=== PATIENT | male | born 1975 ===

== ENCOUNTER 2023-04-22 09:16 | Outpatient (AMB) | payer OTHER, SELFPAY ==
[2023-04-22 09:16] VITALS: BP 134/82; PULSE 89; O2SAT 99; BMI 19.6
--- NOTE | 2023-04-22 09:16 | MHC.PC.OV ---
Vital Signs 04/22/23 09:16 Height 5 ft 3 in Weight 110 lb 7.225 oz BMI 19.6 BP 134/82 Blood Pressure Location Lt brachial Position Sitting Pulse 89 Pulse Source Pulse Oximeter Pulse Oximetry (%) 99 Oxygen Delivery Method Room Air Intake Visit Reasons: Physical exam [employer]ist Required: No Allergies No Known Allergies Allergy (Verified 04/22/23 09:33) Medication List - Last Reconciled 04/22/23 by DIANNA Kahn No Known Home Meds Tobacco use date assessed: 04/22/23 Dental Screening Dental Screen Date: 04/22/23 Did you have a dental visit in the last 12 months?: No Did you have a dental problem in the last 6 months where you did not have access to dental care?: No Was dental information given to patient?: Patient has dentist HPI Physical exam HPI Details Patient is a 48-year-old male who presents today for physical exam. Patient of Dr. Rocha. Medical history significant for cerebral palsy-patient ambulates with a walker or wheelchair. Today we discussed patient's need for colon cancer screening, declined colonoscopy interested in a Cologuard. Patient is due for blood work. Will be having dental exam this month. Family will call for eye exam. Patient is accompanied by his sister who helps with Georgian interpretation. [facility] Medical History Family history of diabetes mellitus Surgical History Recent surgical procedure on lower extremity Family History Father Diabetes Hypertension Mother Hypertension Diabetes Social History Housing: Apartment Alcohol intake: never Patient Tobacco Use Status: Never used Tobacco e-Cigarette/Vaping Use: Never Used Second Hand Smoke Exposure: No service: No Current occupational status: disabled Cognitive needs: Yes Hearing needs: No Vision needs: No Questionnaire PHQ-9 Over the last 2 weeks, how often have you been bothered by any of the following problems? 1. Little interest or pleasure in doing things: not at all 2. Feeling down, depressed, or hopeless: not at all 3. Trouble falling or staying asleep, or sleeping too much: not at all 4. Feeling tired or having little energy: not at all 5. Poor appetite or overeating: not at all 6. Feeling bad about yourself - or that you are a failure or have let yourself or your family down: not at all 7. Trouble concentrating on things, such as reading the newspaper or watching television: not at all 8. Moving or speaking so slowly that other people could have noticed. Or the opposite - being so fidgety or restless that you have been moving around a lot more than usual: not at all 9. Thoughts that you would be better off or of hurting yourself in some way: not at all Total score: 0 Depression Screening Interpretation: Negative Depression Screening Done: Yes 92247 - PHQ-9 Billing: Yes Source: Developed by Drs. Loc Mcmahon, More Rayo, Sree Andrews and colleagues, with an educational priya from [employer]. Thrive Questionnaire Date Thrive assessed: 04/22/23 I am a: Patient What is your living situation today?: I have a steady place to live Within the past 12 months, did the food you bought not last and you didn't have the money to get more?: Never true Within the past 12 months, did you worry whether your food would run out before you got money to buy more?: Never true Currently or been in a relationship where the following occur: no concerns reported AUDIT C Alcohol Use Questionnaire (AUDIT-C) 1. How often do you have a drink containing alcohol?: Never Total Score: 0 Score Reviewed/Action Taken: No DIANA-7 AMB Questionnaire DIANA-7 Date DIANA - 7 assessed: 04/22/23 Feeling nervous, anxious, or on edge: 0 = Not at all Not being able to stop or control worryin = Not at all Worrying too much about different things: 0 = Not at all Trouble relaxin = Not at all Being so restless that it is hard to sit still: 0 = Not at all Becoming easily annoyed or irritable: 0 = Not at all Feeling afraid as if something awful might happen: 0 = Not at all Total DIANA-7 score (0-4 normal; 5-9 mild; 10-14 moderate; 15-21 severe): 0 Source: Developed by Drs. Loc Mcmahon, More Rayo, Sree Andrews and colleagues, with an educational priya from [employer]. DIANA-7 Assessment Billing DIANA-7 Assessment Tool: DIANA-7 Assessment 28702 Review of Systems Const Denies body aches, Denies chills, Denies fever(s) and Denies headache(s) Eyes Denies change in vision ENT Denies dizziness, Denies otalgia, Denies headache(s), Denies nasal discharge, Denies sinus pain and Denies sore throat Card Denies chest pain, Denies edema, Denies lightheadedness and Denies dyspnea Resp Denies cough, Denies dyspnea and Denies wheezing GI Denies abdominal pain, Denies constipation, Denies diarrhea, Denies nausea and Denies vomiting Denies dysuria Musc Denies myalgias Skin/Breast Denies rash Neuro Denies dizziness and Denies headache(s) Aller/Immun Denies wheezing Physical exam (Primary Care) Vital Signs: Last Vital Signs Pulse 89 04/22/23 09:16 BP 134/82 04/22/23 09:16 Pulse Ox 99 04/22/23 09:16 Oxygen Delivery Method Room Air 04/22/23 09:16 BMI result Body Mass Index 19.6 Tobacco/Smoking Status: Tobacco use Status Tobacco use date assessed 04/22/23 04/22/23 09:17 Patient Tobacco Use Status Never used Tobacco 04/22/23 09:17 e-Cigarette/Vaping Use Never Used 04/22/23 09:17 PHQ-9: PHQ-9 Score PHQ-9: Total score 0 04/22/23 09:27 Depression Screening Interpretation: Negative Thrive Assessment: Date of Thrive Assessment Date Thrive assessed 04/22/23 04/22/23 09:17 Currently or been in a relationship where the following occur: no concerns reported Const General: cooperative and no acute distress Orientation/consciousness: oriented to person and oriented to place HENMT Other: Left TM normal Right TM partially obstructed by cerumen, visualized TM Head: Yes normocephalic and Yes atraumatic Face and sinus: Yes sinuses nontender Mouth: oropharynx normal and moist mucous membranes Throat: Yes posterior oropharynx normal Eyes General: appearance normal, both eyes and all related structures Pupils: Equal, round and reactive pupils present EOM: EOMs intact bilaterally Neck Neck: Yes normal visual inspection, Yes full ROM and Yes no lymphadenopathy Thyroid: Thyroid normal Resp Effort & Inspection: normal respiratory effort and able to speak in complete sentences Auscultation: clear to auscultation bilaterally, no crackles, no rales, no rhonchi and no wheezes Cardio Rate: regular rate Rhythm: regular rhythm Heart sounds: S1 normal heart sound present, S2 normal heart sound present and no murmurs GI Palpation (GI): Soft to palpation, not firm, nontender, no guarding, not rigid and no hepatosplenomegaly Auscultation: normal bowel sounds General: No CVA tenderness Back/Spine/Pelvis Back: No CVA tenderness Skin General skin exam: no rashes or lesions noted Neuro General: oriented to person and oriented to place Cranial nerves: Yes Equal, round and reactive pupils present Extrem General: Yes full ROM and No edema Assessment and Plan Assessment & Plan (1) Screening for prostate cancer: Code(s): Z12.5 - Encounter for screening for malignant neoplasm of prostate (2) Cerebral palsy: Code(s): G80.9 - Cerebral palsy, unspecified Plan: Patient ambulates with a walker/wheelchair (3) Encounter for physical examination: Code(s): Z00.00 - Encounter for general adult medical examination without abnormal findings Plan: Repeat in 1 year (4) Family history of diabetes mellitus: Code(s): Z83.3 - Family history of diabetes mellitus (5) Screening for colon cancer: Code(s): Z12.11 - Encounter for screening for malignant neoplasm of colon Orders: Orders TSH reflex Free T4 Today Z00.00 - Encounter for general adult medical examination without abnormal findings Comprehensive [place]. Panel Fast Today Z83.3 - Family history of diabetes mellitus Prostate Specific Antigen Today Z12.5 - Encounter for screening for malignant neoplasm of prostate Lipid Panel Today Z00.00 - Encounter for general adult medical examination without abnormal findings Complete Blood Count Auto Diff Today Z00.00 - Encounter for general adult medical examination without abnormal findings Referrals Cologuard Test Z12.11 - Encounter for screening for malignant neoplasm of colon, Z12.12 - Encounter for screening for malignant neoplasm of rectum Coding Level of Care Code Est Pt Prev Care 40-64y(90411) Diagnoses Screening for prostate cancer Z12.5 Cerebral palsy G80.9 Encounter for physical examination Z00.00 Family history of diabetes mellitus Z83.3 Screening for colon cancer Z12.11 Additional Codes DIANA-7 Assessment Billing - DIANA-7 Assessment Tool: DIANA-7 Assessment [id number] ([id number])
== END 2023-04-22 09:43 | disposition home or self-care (01) ==
PROVIDERS: PCP Internal Medicine; Visit Provider Nurse Practitioner Family
DX: Z12.5 Encounter for screening for malignant neoplasm of prostate (principal); G80.9 Cerebral palsy, unspecified; Z00.00 Encounter for general adult medical examination without abnormal findings; Z83.3 Family history of diabetes mellitus; Z12.11 Encounter for screening for malignant neoplasm of colon
CPT/HCPCS: 99396

== ENCOUNTER 2024-04-24 09:23 | Outpatient (AMB) | payer OTHER, SELFPAY ==
--- NOTE | 2024-04-24 09:28 | MHC.PC.OV ---
Vital Signs 04/24/24 09:30 Height 5 ft 3 in Weight 109 lb BMI 19.3 BP 132/70 Blood Pressure Location Lt brachial Position Sitting Intake Visit Reasons: pe Intake Note: Patient here for a physical exam Director Paid Media Required: No Accompanied by: Self / Same As Patient Allergies No Known Allergies Allergy (Verified 04/24/24 09:34) Medication List - Last Reconciled 04/24/24 by Jessica Dill MD No Known Home Meds Tobacco use date assessed: 04/24/24 Dental Screening Dental Screen Date: 04/24/24 Did you have a dental visit in the last 12 months?: No Did you have a dental problem in the last 6 months where you did not have access to dental care?: No Was dental information given to patient?: Patient has dentist HPI HPI Comments History of Present Illness Details This is a 49-year-old male with cerebral palsy that comes accompanied by sister which is the assembler rubber footwear for his physical exam. She walks with a walker for gait stability. Denies any acute complaints. Cologuard done 2022 was negative. REPLACED BY [facility] Medical History Family history of diabetes mellitus Surgical History Recent surgical procedure on lower extremity Family History Father Diabetes Hypertension Mother Hypertension Diabetes Social History Housing: Apartment Alcohol intake: never Patient Tobacco Use Status: Never used Tobacco e-Cigarette/Vaping Use: Never Used Second Hand Smoke Exposure: No service: No Current occupational status: disabled Cognitive needs: Yes Hearing needs: No Vision needs: No Questionnaire PHQ-9 Over the last 2 weeks, how often have you been bothered by any of the following problems? 1. Little interest or pleasure in doing things: not at all 2. Feeling down, depressed, or hopeless: not at all 3. Trouble falling or staying asleep, or sleeping too much: not at all 4. Feeling tired or having little energy: not at all 5. Poor appetite or overeating: not at all 6. Feeling bad about yourself - or that you are a failure or have let yourself or your family down: not at all 7. Trouble concentrating on things, such as reading the newspaper or watching television: not at all 8. Moving or speaking so slowly that other people could have noticed. Or the opposite - being so fidgety or restless that you have been moving around a lot more than usual: not at all 9. Thoughts that you would be better off or of hurting yourself in some way: not at all Total score: 0 Depression Screening Interpretation: Negative Depression Screening Done: Yes 16637 - PHQ-9 Billing: Yes Source: Developed by Drs. Loc Mcmahon, More Rayo, Sree Andrews and colleagues, with an educational priya from [employer]. Thrive Questionnaire Date Thrive assessed: 04/22/23 I am a: Patient What is your living situation today?: I choose not to answer this question Within the past 12 months, did the food you bought not last and you didn't have the money to get more?: I choose not to answer this question Within the past 12 months, did you worry whether your food would run out before you got money to buy more?: I choose not to answer this question Do you have trouble paying for medicines?: I choose not to answer this question Do you have trouble getting transportation to medical appointments?: I choose not to answer this question Do you have trouble paying your heating and electricity bill?: I choose not to answer this question Do you have trouble taking care of your child, family member or friend?: I choose not to answer this question Do you have trouble with day-to-day activities such as bathing, preparing meals, shopping, managing finances, etc.?: I choose not to answer this question Are you currently unemployed and looking for a job?: I choose not to answer this question Are you interested in more education?: I choose not to answer this question Please select the resources that you would like help with: None Currently or been in a relationship where the following occur: I choose not to answer THRIVE Score: 0 AUDIT C Alcohol Use Questionnaire (AUDIT-C) 1. How often do you have a drink containing alcohol?: Never Total Score: 0 Score Reviewed/Action Taken: No DIANA-7 AMB Questionnaire DIANA-7 Date DIANA - 7 assessed: 04/22/23 Feeling nervous, anxious, or on edge: 0 = Not at all Not being able to stop or control worryin = Not at all Worrying too much about different things: 0 = Not at all Trouble relaxin = Not at all Being so restless that it is hard to sit still: 0 = Not at all Becoming easily annoyed or irritable: 0 = Not at all Feeling afraid as if something awful might happen: 0 = Not at all Total DIANA-7 score (0-4 normal; 5-9 mild; 10-14 moderate; 15-21 severe): 0 Source: Developed by Drs. Loc Mcmahon, More Rayo, Sree Andrews and colleagues, with an educational priya from [employer]. DIANA-7 Assessment Billing DIANA-7 Assessment Tool: DIANA-7 Assessment 66114 Review of Systems Const All systems reviewed & are unremarkable except as noted in HPI and below Card Denies chest pain at rest, Denies chest pain with activity, Denies edema, Denies irregular heart rhythm, Denies claudication, Denies dyspnea, Denies dyspnea on exertion, Denies orthopnea, Denies paroxysmal nocturnal dyspnea and Denies slow heart rate Resp Denies cough, Denies dyspnea and Denies dyspnea on exertion GI Denies abdominal pain, Denies change in bowel habits, Denies excessive flatus, Denies nausea and Denies vomiting Denies urinary hesitancy, Denies urinary incontinence and Denies urinary urgency Physical exam (Primary Care) Vital Signs: Last Vital Signs BP 132/70 04/24/24 09:30 BMI result Body Mass Index 19.3 BMI Assessment/Plan discussion: Low BMI Low, Plan discussed: lifestyle, increase calorie intake and dietary Tobacco/Smoking Status: Tobacco use Status Tobacco use date assessed 04/24/24 04/24/24 09:34 Patient Tobacco Use Status Never used Tobacco 04/24/24 09:30 e-Cigarette/Vaping Use Never Used 04/24/24 09:30 PHQ-9: PHQ-9 Score PHQ-9: Total score 0 04/24/24 09:38 Depression Screening Interpretation: Negative Thrive Assessment: Date of Thrive Assessment Date Thrive assessed 04/22/23 04/24/24 09:30 Currently or been in a relationship where the following occur: I choose not to answer Const General: cooperative Nutritional Appearance: thin Limitations: ambulation with walker HENMT Head: Yes normal to inspection, Yes normocephalic and Yes atraumatic Ears: external ears normal Eyes General: appearance normal, both eyes and all related structures Eyelids: Yes eyelids normal Conjunctivae: conjunctivae normal Neck Neck: Yes normal visual inspection and Yes supple Resp Effort & Inspection: normal respiratory effort Auscultation: clear to auscultation bilaterally Cardio Jugular venous distension: no JVD Rate: regular rate Rhythm: regular rhythm Heart sounds: S1 normal heart sound present and S2 normal heart sound present GI Inspection: Yes normal to inspection Palpation (GI): Soft to palpation and nontender Auscultation: normal bowel sounds Skin General skin exam: no rashes or lesions noted Neuro Motor exam (neuro): Abnormal motor strength present (0/5 in lower limbs bilateral, 5/5 upper limbs bilateral) Extrem General: Yes full ROM Psych Appearance: grossly normal Coding Level of Care Code Est Pt Prev Care 40-64y(06437) Diagnoses Encounter for physical examination 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 (2) Cerebral palsy: Code(s): G80.9 - Cerebral palsy, unspecified Category: Medical Qualifiers: Cerebral palsy type: spastic diplegic Qualified Code(s): G80.1 - Spastic diplegic cerebral palsy Plan: Continue the use of a walker for mobility. Orders: Orders Lipid Panel Today Z00.00 - Encounter for general adult medical examination without abnormal findings Thyroid Stimulating Hormone Today R63.6 - Underweight Complete Blood Count Auto Diff Today G80.9 - Cerebral palsy, unspecified Comprehensive [place]. Panel Fast Today Z00.00 - Encounter for general adult medical examination without abnormal findings
[2024-04-24 09:30] VITALS: BP 132/70; BMI 19.3
== END 2024-04-24 09:48 | disposition home or self-care (01) ==
PROVIDERS: PCP Internal Medicine; Visit Provider Internal Medicine
DX: Z00.00 Encounter for general adult medical examination without abnormal findings (principal); G80.1 Spastic diplegic cerebral palsy

== ENCOUNTER → 2024-04-24 09:23 | Outpatient (BNVA) | payer OTHER, SELFPAY | PROVIDERS: PCP Internal Medicine; Visit Provider Internal Medicine | DX: Z00.00 Encounter for general adult medical examination without abnormal findings (principal); G80.1 Spastic diplegic cerebral palsy | CPT/HCPCS: 96127; 99396 ==

== ENCOUNTER 2024-08-26 07:59 | Inpatient (IN) | payer OTHER, SELFPAY ==
--- NOTE | ~2024-08-26 | XR_ITS ---
CLINICAL HISTORY: fall Exam: AP, lateral, and oblique views of the left knee. Comparison: None. Findings: Bony alignment is anatomic. No acute fracture. Joint spaces are well preserved. No joint effusion. Impression: No fracture. This document has been electronically signed by: Catrachito Boudreaux MD on 08/26/2024 08:49:26
--- NOTE | ~2024-08-26 | XR_ITS ---
CLINICAL HISTORY: fall and pain 2 views left hip. Single AP pelvis. Comparison: None Findings: Comminuted intratrochanteric/subtrochanteric fracture on the left. Mild varus angulation deformity. Normal congruency of the hip joint. Limited assessment of the right femoral neck due to positioning clinical correlation SI joints pubic rami and symphysis pubis intact. Mild joint space narrowing bilaterally. Bone mineralization and soft tissues within normal limits. No radiopaque foreign body. Impression: 1. Comminuted intratrochanteric/subtrochanteric fracture on the left with mild varus angulation deformity. Patient was rotated limited assessment of the right femoral neck This document has been electronically signed by: Jhon Mejia MD on 08/26/2024 10:37:55
--- NOTE | ~2024-08-26 | FL_ITS ---
EXAMINATION: FL GUIDANCE ONLY HISTORY: intraop exam COMPARISON: Correlation is made with plain films of the left hip dated 08/26/2024. TECHNIQUE: Fluoroscopy time: 1.0 minutes. Cumulative Dose: 20.0 mGy. DAP: 0.347 mGym2 Images: 4. FINDINGS: Images demonstrate internal fixation of the previously noted intertrochanteric fracture of the femur with a compression screw and intramedullary braulio. FL/FL guidance in OR IMPRESSION: Fluoroscopy during procedure. Please see procedure report for additional information. Electronically signed by: Loc Whaley MD 08/28/2024 07:15 AM EDT
--- NOTE | ~2024-08-26 | XR_ITS ---
CLINICAL HISTORY: fall and pain 1 view chest x-ray. Comparison: None Findings: Normal lung volumes. Lungs are clear. No pneumothorax or pleural effusion. Heart size normal. No passive venous congestion. No midline shift or tracheal deviation. No acute fracture. Impression: 1. No acute cardiopulmonary disease. This document has been electronically signed by: Jhon Mejia MD on 08/26/2024 10:39:07
[2024-08-26 08:08] VITALS: BP 134/68; PULSE 80; RESP 16; TEMP 36.6; O2SAT 98; BMI 20.7
--- NOTE | 2024-08-26 08:29 | ED_ITS ---
HPI - Fall General Chief Complaint: Fall Stated Complaint: fall Time Seen by Provider: 08/26/24 08:15 Source: family, EMS and transportation maintenance specialist Mode of arrival: EMS Limitations: physical limitation History of Present Illness ED Provider: Niharika Amaral HPI Narrative: 49-year-old male history of cerebral palsy brought in by EMS and family after he sustained a mechanical fall while taking a shower in the morning. baseline activity of the patient is can walk with a walker otherwise he needs licensed physical therapy assistant with most of the daily activities, patient is nonverbal at baseline. Patient was been assisted for shower by his brother when he slipped and fall on his left side no head injury, no neck injury witnessed by his brother. Patient is only complaining of left knee pain. No anticoagulation therapy. Related Data Home Medications ?Medication ?Instructions ?Recorded ?Confirmed No Known Home Meds 08/26/24 08/26/24 Allergies Allergy/AdvReac Type Severity Reaction Status Date / Time No Known Allergies Allergy Verified 08/26/24 08:09 Review of Systems 2 Review of Systems: All other systems are reviewed and are negative Constitutional: Reports as per HPI and Reports no additional constitutional complaints Eyes: Reports as per HPI and Reports no additional eye complaints Reports system reviewed and no additional complaints, except as documented Cardiovascular: Reports as per HPI and Reports no additional cardiovascular complaints Respiratory: Reports as per HPI and Reports no additional respiratory complaints Gastrointestinal: Reports as per HPI and Reports no additional gastrointestinal complaints Genitourinary: Reports no additional female genitourinary complaints Musculoskeletal: Reports no additional musculoskeletal complaints Skin/Breast: Reports system reviewed and no additional complaints, except as docu Psychiatric: Reports no additional psychiatric complaints Endocrine: Reports no additional endocrine complaints Hematologic/Lymphatic: Reports no additional hematologic/lymphatic complaints Allergic/Immunologic: Reports no additional allergic/immunologic complaints Reports system reviewed and no additional complaints, except as documented and Reports Abnormal speech present [facility] Past Medical History Medical History Cerebral palsy Social History Social History Household Members: Family Housing: House Do you presently have visiting nurse or other home services: No Patient Tobacco Use Status: Never used Tobacco Use of substances other than those prescribed or required for medical reasons: No Currently Displaying Signs/Symptoms of Drug Intoxication Withdrawal: No Any prior treatment program specific to substance use: No Have you been hit, kicked, punched, or otherwise hurt by someone within the past year? If so, by whom?: No Do you feel safe in your current relationship?: No Current Relationship Is there a partner from a previous relationship who is making you feel unsafe now?: No Are you made to feel afraid or neglected: No Advance Directives: No Advance Directives Information Provided: No Do you have a plan to hurt others: No Plan Recently lost weight without trying: No How much weight loss: Not applicable Eating poorly because of decreased appetite: No Nutrition screen score: 0 Nutrition Risks: No Nutritional Risk Poor oral hygiene: No Physical Exam 2 Vital Signs: Vital Signs: Last Vital Signs Temp 98.4 F 08/26/24 12:48 Pulse 92 08/26/24 12:48 Resp 16 08/26/24 12:48 BP 123/68 08/26/24 12:48 Pulse Ox 97 08/26/24 12:48 O2 Del Method Room Air 08/26/24 12:48 BMI result Body Mass Index 20.7 Vital signs have been reviewed and appear to be correct. Blood pressure elevated. Heart rate normal. Respiratory rate normal. Temperature normal. Oxygen saturation normal. Appearance: Nonverbal, alert,No acute distress. Head: Normal external exam. Normocephalic. Atraumatic. No Barger signs noted. No raccoon eyes noted Eyes: PERRLA. EOMI. Conjunctiva and sclera normal. Eyelids normal. ENT: TM's Normal. Pharynx normal. Uvula midline. Moist mucous membranes. No trismus noted. No drooling noted. No muffled voice noted. Neck: Normal inspection. Neck supple. FROM. No adenopathy. Thyroid Normal. No meningeal signs. No neck mass noted. CVS: Normal heart rate and rhythm. Heart sound normal. No murmurs noted. Pulses normal throughout. Respiratory: No respiratory distress. Painless inspiration. Breath sounds normal. No wheezes/rales/rhonchi noted. Chest nontender. No accessory muscle usage noted or decreased air movement noted. Abdomen: Soft and nontender. Bowel sounds normal in all 4 quadrants. No distention noted. No organomegaly noted. No visible injury noted. Back: No CVA tenderness. Full range of motion noted. Skin: Skin warm and dry. Normal skin color. Normal skin turgor. No rashes/lesions/lacerations noted. Extremities: left hip deformity and tender to touch. Neuro: Oriented to place and person which is normal for the patient. Cranial nerve exam: II-XII are grossly intact No motor deficit. No sensory deficit. Reflexes normal. Course Reevaluation(s) Reevaluation #1: 49-year-old male with history of cerebral palsy s/p mechanical fall and left her fracture. case discussed with Shasha HOLMAN ortho, accepted the patient to be admitted to ortho service. Time: 11:17 Medications Administered Generic Name Dose Route Start Last Admin Trade Name Freq PRN Reason Stop Dose Admin Lactated Ringer's 1,000 mls @ 100 mls/hr 08/26/24 12:48 08/26/24 13:50 Lr IVCONT 100 mls/hr .Q10H RENE Administration Sodium Chloride 3 ml 08/26/24 16:00 08/26/24 13:51 0.9 % Sodium Chloride Flush 3 Ml Syringe IVFLUSH Not Given QSHIFT RENE Discontinued Medications Generic Name Dose Route Start Last Admin Trade Name Freq PRN Reason Stop Dose Admin Ibuprofen 400 mg 08/26/24 08:29 08/26/24 08:48 Ibuprofen 400 Mg Tablet PO 08/26/24 08:30 400 mg ONCE ONE Administration Medical Decision Making Differential Diagnosis Differential Diagnoses: The differential diagnosis associated with the presentation includes ( Left hip fracture, left knee fracture, electrolyte derangement, severe anemia.) Admission/Observation Consideration of admission/observation: Escalation of care including admission/observation considered Consult Healthcare Provider Management of the patient was discussed with: Software Systems Analyst (Shasha) Lab Data [facility] Lab Attestation statement: I reviewed the patient's lab results. 08/26/24 11:25 08/26/24 11:25 Labs: Lab Results 08/26/24 Range/Units 11:25 WBC 11.7 H (4.8-10.8) X10*3/uL RBC 4.61 (4.60-5.80) X10*6/uL Hgb 13.9 L (14.0-18.0) g/dl Hct 41.5 L (42.0-52.0) % MCV 90.0 (80.0-98.0) fL MCH 30.2 (27.0-33.0) pg MCHC 33.5 (31.0-36.0) g/dl RDW 11.7 (11.0-16.0) % Plt Count 277 (160-400) X10*3/uL MPV 9.7 (9.4-12.4) fL Immature Gran % (Auto) 0.5 H (0.0-0.4) % Neut % (Auto) 86.9 H (45-73) % Lymph % (Auto) 5.2 L (20-40) % [place] % (Auto) 6.9 (2-11) % Eos % (Auto) 0.0 (0-4) % Baso % (Auto) 0.5 (0-2) % Lymph # (Auto) 0.6 L (1.2-4.9) X10*3/uL [place] # (Auto) 0.8 (0.1-1.2) X10*3/uL Eos # (Auto) 0.0 (0.0-0.4) X10*3/uL Baso # (Auto) 0.1 (0.0-0.2) X10*3/uL Abs Immat Gran (auto) 0.06 H (0.00-0.03) X10*3/uL Absolute Neuts (auto) 10.2 H (2.0-8.3) x10*3/uL Absolute Nucleated RBC 0.000 (0.0-0.012) X10*3/uL Nucleated RBC % (auto) 0.0 (0.0-0.2) /100WBC PT 11.2 (10.9-12.4) SEC INR 1.0 (0.9-1.1) Sodium 137 (135-145) mmol/L Potassium 4.1 (3.3-5.1) mmol/L Chloride 104 (96-108) mmol/L Carbon Dioxide 25 (22-29) mmol/L Anion Gap 12 (12-20) BUN 12 (9-16) mg/dL Creatinine 0.52 (0.5-1.4) mg/dL Estim Creat Clear Calc 126.2 Estimated GFR > 60 Random Glucose 105 (60-115) mg/dL Calcium 9.0 (8.4-10.2) mg/dL Independent Interpretation I performed an independent interpretation of an: Plain X-Ray ( Chest /knee/hip x-rays: Left hip fracture.) Radiology Impression Discussion of test interpretation with radiology: I have reviewed the radiologist's reading. Discharge Plan Discharge Clinical Impression: Closed fracture of left hip Patient Disposition: Admitted As Inpatient Interventions: Admission Worksheet (ED) Last Done: 08/26/24 12:13 Discharge Date/Time: 08/26/24 12:37
[2024-08-26] MEDS: Ibuprofen 400 MG TABLET PO (08:48)
--- NOTE | 2024-08-26 09:11 | PC.NURSE ---
attempted to have patient ambulate with walker, patient states he had left hip pain. patient unable to sit up with pain in left hip. patient pants removed, changed into hospital attire. patient left upper leg and hip noted to be swollen. ED provider notified, additional orders for imaging ordered.
[2024-08-26 11:29] LABS: MANUAL DIFF FLAG NO
--- NOTE | 2024-08-26 11:29 | P.HPOP_ITS ---
History of Present Illness History of Present Illness Date of Service: 08/26/24 Chief complaint: Lt intertroch fx Narrative: Dipak Hays is a 49 year old male with PMH cerebal palsy, he ambulates with a walker. He is non verbal at baseline. He has family support. He was in the shower this morning when he fell, landing on the left side. He was transported to the ED via EMS, xrays of the pelvis/hip significant for left intertroch fx. He was admitted to orthopedic service for surgical planning. Review of Systems 2 Review of Systems: Yes all other systems are reviewed and are negative [facility] Past Medical History Medical History Cerebral palsy Social History Social History Household Members: Family Housing: House Do you presently have visiting nurse or other home services: No Patient Tobacco Use Status: Never used Tobacco Use of substances other than those prescribed or required for medical reasons: No Currently Displaying Signs/Symptoms of Drug Intoxication Withdrawal: No Any prior treatment program specific to substance use: No Have you been hit, kicked, punched, or otherwise hurt by someone within the past year? If so, by whom?: No Do you feel safe in your current relationship?: No Current Relationship Is there a partner from a previous relationship who is making you feel unsafe now?: No Are you made to feel afraid or neglected: No Advance Directives: No Advance Directives Information Provided: No Do you have a plan to hurt others: No Plan Recently lost weight without trying: No How much weight loss: Not applicable Eating poorly because of decreased appetite: No Nutrition screen score: 0 Nutrition Risks: No Nutritional Risk Poor oral hygiene: No Meds Allergies Allergy/AdvReac Type Severity Reaction Status Date / Time No Known Allergies Allergy Verified 08/26/24 08:09 Home Medications ?Medication ?Instructions ?Recorded ?Confirmed ?Last Taken ?Type No Known Home Meds 08/26/24 08/26/24 Unknown History Physical Exam 2 Vital Signs: Vital Signs: Last Vital Signs Temp 97.8 F 08/26/24 08:08 Pulse 80 08/26/24 08:08 Resp 16 08/26/24 08:08 BP 134/68 08/26/24 08:08 Pulse Ox 98 08/26/24 08:08 O2 Del Method Room Air 08/26/24 08:08 BMI result Body Mass Index 20.7 Results Labs 08/26/24 11:25 08/26/24 11:25 Labs: All other labs normal. Assessment and Plan (1) Closed fracture of left hip: Status: Acute Plan I discussed the case with Dr Dodd and explained the extent of the injury to the patient and his mother, [place] who was at bedside. I discussed options available which include surgical intervention. I explained the procedure in detail along with the length of recovery and rehab course. I explained the risk, benefits and alternatives. Risk including, but not limited to infection, blood clots, bleeding, non union or malunion and nerve/tissue damage to surrounding areas. I answered all their questions and with their understanding they have consented to move forward with Operative Fixation of the left femur . The patient will be T&S, med clearance obtained and NPO after midnight. Quality Stroke Does the patient have a stroke diagnosis?: No VTE Prior VTE?: No VTE Risk Level:: Surgical - very high VTE Device Contraindication: N/A - Device Ordered VTE Drug Contraindication: Treatment Not Indicated Procedures Date of Service Date of Service: 08/26/24
[2024-08-26 11:39] LABS: Basophils Absolute Auto 0.1 X10*3/uL (0.0-0.2); Basophils Percent Auto 0.5 % (0-2); Hematocrit 41.5 % (42.0-52.0); Hemoglobin 13.9 g/dl (14.0-18.0); Imm Gran Abs Auto 0.06 X10*3/uL (0.00-0.03); Imm Gran Pct Auto 0.5 % (0.0-0.4); Lymphocytes Absolute Auto 0.6 X10*3/uL (1.2-4.9); Lymphocytes Percent Auto 5.2 % (20-40); Mean Corpuscular HGB Conc 33.5 g/dl (31.0-36.0); Mean Corpuscular Hemoglobin 30.2 pg (27.0-33.0); Mean Platelet Volume 9.7 fL (9.4-12.4); Monocytes Absolute Auto 0.8 X10*3/uL (0.1-1.2); Monocytes Percent Auto 6.9 % (2-11); Neutrophils Absolute Auto 10.2 x10*3/uL (2.0-8.3); Neutrophils Percent Auto 86.9 % (45-73); Platelet Count 277 X10*3/uL (160-400); Red Blood Count 4.61 X10*6/uL (4.60-5.80); Red Cell Distribution Width 11.7 % (11.0-16.0); White Blood Count 11.7 X10*3/uL (4.8-10.8)
[2024-08-26 11:41] LABS: Anion Gap 12 (12-20); Blood Urea Nitrogen 12 mg/dL (9-16); Carbon Dioxide 25 mmol/L (22-29); Chloride 104 mmol/L (96-108); Creatinine Clr Calc Pharmacy 126.2; Estimated Glomerular Filt Rate > 60; Glucose Random 105 mg/dL (60-115); Potassium 4.1 mmol/L (3.3-5.1); Sodium 137 mmol/L (135-145)
--- NOTE | 2024-08-26 11:58 | PHA.MEDREC ---
Pharmacy Consult ? Medication Reconciliation Pharmacy has completed the medication reconciliation. Spoke with family at bedside through [employer] services. Patient is not on any home medications, and will use [facility] .
[2024-08-26 12:03] LABS: Prothrombin Time 11.2 SEC (10.9-12.4)
[2024-08-26 12:48] VITALS: BP 123/68; PULSE 92; RESP 16; TEMP 36.9; O2SAT 97
--- NOTE | 2024-08-26 12:48 | PC.NURSE ---
Pt up from ED at this time, primary RN at lunch break. No c/o pain, no resp distress, Lungs clear, family at bedside, Tristanian speaking, bed alarm on for safety.
[2024-08-26 13:45] VITALS: BMI 20.7
[2024-08-26] MEDS: Lactated Ringers 1,000 ML 100 ML IVCONT ×2 (13:50→23:34)
--- NOTE | 2024-08-26 14:09 | HO.PM.IMCN ---
History of Present Illness Data of Consult Service Date: 08/26/24 Primary Care Provider: Jessica Dill MD HPI 49-year-old man with a history of cerebral palsy presents after fall at home and found to have comminuted intratrochanteric/subtrochanteric fracture of the left hip. Plan is to take the patient to the OR tomorrow as per orthopedic surgical team. Vital signs are stable, labs are within acceptable limits. Patient has no complaints of pain at this time. Review of Systems Review of Systems: Denies any recent fever chills or decrease in appetite respiratory denies shortness breath or cough cardiovascular denied chest pain gastrointestinal denies any dysphagia abdominal pain nausea vomiting or diarrhea genitourinary denies any dysuria frequency or hematuria musculoskeletal hip fracture neuropsych denies any weakness or seizures all other systems reviewed are negative [facility] Medical History Cerebral palsy Pertinent family history: Mother with heart disease Social History Household Members: Family Housing: House Do you presently have visiting nurse or other home services: No Patient Tobacco Use Status: Never used Tobacco Use of substances other than those prescribed or required for medical reasons: No Currently Displaying Signs/Symptoms of Drug Intoxication Withdrawal: No Any prior treatment program specific to substance use: No Have you been hit, kicked, punched, or otherwise hurt by someone within the past year? If so, by whom?: No Do you feel safe in your current relationship?: No Current Relationship Is there a partner from a previous relationship who is making you feel unsafe now?: No Are you made to feel afraid or neglected: No Advance Directives: No Advance Directives Information Provided: No Do you have a plan to hurt others: No Plan Recently lost weight without trying: No How much weight loss: Not applicable Eating poorly because of decreased appetite: No Nutrition screen score: 0 Nutrition Risks: No Nutritional Risk Poor oral hygiene: No Meds Allergies Allergy/AdvReac Type Severity Reaction Status Date / Time No Known Allergies Allergy Verified 08/26/24 08:09 Active Medications: Current Medications Acetaminophen (Acetaminophen 325 Mg Tablet) 650 mg PO Q6H PRN PRN Reason: Pain, Mild 1-3,fever,headache Celecoxib (Celecoxib 200 Mg Capsule) 200 mg PO BID RENE Docusate Sodium (Docusate Sodium 100 Mg Capsule) 100 mg PO BID [facility] Hydromorphone HCl (Hydromorphone Hcl 0.5 Mg/0.5 Ml Syringe) 0.25 mg IVPUSH Q4H PRN; Protocol PRN Reason: Pain, Severe (Pain Scale 7-10) Cefazolin Sodium/Dextrose (Ancef) 2 gm in 50 mls @ 100 mls/hr IV PREOP ONE Stop: 08/27/24 08:29 Lactated Ringer's (Lr) 1,000 mls @ 100 mls/hr IVCONT .Q10H [facility] Last Admin: 08/26/24 13:50 Dose: 100 mls/hr Ondansetron HCl (Ondansetron Hcl 4 Mg/2 Ml Vial) 4 mg IVPUSH Q8H PRN PRN Reason: Nausea and Vomiting Oxycodone HCl (Oxycodone Hcl Immed Release 5 Mg Tablet) 5 mg PO Q4H PRN PRN Reason: Pain, Moderate(Pain Scale 4-6) Oxycodone HCl (Oxycodone Hcl Er 10 Mg Tab.Er.12h) 10 mg PO BID [facility] Sodium Chloride (0.9 % Sodium Chloride Flush 3 Ml Syringe) 3 ml IVFLUSH QSHIFT [facility] Last Admin: 08/26/24 13:51 Dose: Not Given Home Medications ?Medication ?Instructions ?Recorded ?Confirmed ?Last Taken ?Type No Known Home Meds 08/26/24 08/26/24 Unknown History Physical Exam Vital Signs and Narrative: Vital Signs: Last Vital Signs Temp 98.4 F 08/26/24 12:48 Pulse 92 08/26/24 12:48 Resp 16 08/26/24 12:48 BP 123/68 08/26/24 12:48 Pulse Ox 97 08/26/24 12:48 O2 Del Method Room Air 08/26/24 12:48 BMI result Body Mass Index 20.7 Appearing in no acute distress head is normocephalic atraumatic eyes pupils are PERRLA sclera is anicteric mouth throat mucous membranes are intact and moist neck is supple no lymphadenopathy, no JVD noted lung sounds are clear to auscultation heart regular rate rhythm, clear S1, S2 positive bowel sounds, abdomen is soft, nontender neuro patient is alert x3, no focal deficits Results Labs 08/26/24 11:25 08/26/24 11:25 Labs: Laboratory Results - last 24 hr 08/26/24 08/26/24 11:25 11:52 MCV 90.0 MCH 30.2 MCHC 33.5 RDW 11.7 Plt Count 277 MPV 9.7 Immature Gran % (Auto) 0.5 H Neut % (Auto) 86.9 H Lymph % (Auto) 5.2 L [place] % (Auto) 6.9 Eos % (Auto) 0.0 Baso % (Auto) 0.5 Lymph # (Auto) 0.6 L [place] # (Auto) 0.8 Eos # (Auto) 0.0 Baso # (Auto) 0.1 Abs Immat Gran (auto) 0.06 H Absolute Neuts (auto) 10.2 H Absolute Nucleated RBC 0.000 Nucleated RBC % (auto) 0.0 PT 11.2 INR 1.0 Anion Gap 12 Estim Creat Clear Calc 126.2 Estimated GFR > 60 Random Glucose 105 Calcium 9.0 Blood Type O Positive Antibody Screen NEGATIVE Assessment and Plan (1) Closed fracture of left hip: Status: Acute Plan 49-year-old man with a history of cerebral palsy admitted with comminuted intertrochanteric hip fracture Left hip fracture Management as per surgical team, plan for OR tomorrow Pain management History of cerebral palsy Baseline No other significant medical history, not on any medications at home DVT prophylaxis as per surgical team Medical consultation complete. Will sign off
[2024-08-26 15:14] VITALS: BP 118/71; PULSE 92; RESP 18; TEMP 36; O2SAT 97
[2024-08-26] MEDS: oxyCODONE HCl Immed Release 5 MG TABLET PO (17:57)
[2024-08-26 19:16] VITALS: BP 130/81; PULSE 91; RESP 18; TEMP 36.8; O2SAT 96
[2024-08-26] MEDS: Docusate Sodium 100 MG CAPSULE PO (20:41)
[2024-08-26] MEDS: Celecoxib 200 MG CAPSULE PO (20:41)
[2024-08-26] MEDS: oxyCODONE HCl ER 10 MG TAB.ER.12H PO (20:41)
[2024-08-27] VITALS (10 sets, daily range): BP systolic 102–138; BP diastolic 56–85; PULSE 83–97; RESP 16–18; TEMP 36.6–37.2; O2SAT 96–99
[2024-08-27 07:35] LABS: MANUAL DIFF FLAG NO
[2024-08-27 07:41] LABS: Basophils Absolute Auto 0.1 X10*3/uL (0.0-0.2); Basophils Percent Auto 0.9 % (0-2); Eosinophils Percent Auto 0.7 % (0-4); Hematocrit 39.5 % (42.0-52.0); Hemoglobin 12.7 g/dl (14.0-18.0); Imm Gran Abs Auto 0.02 X10*3/uL (0.00-0.03); Imm Gran Pct Auto 0.4 % (0.0-0.4); Lymphocytes Absolute Auto 1.1 X10*3/uL (1.2-4.9); Lymphocytes Percent Auto 20.2 % (20-40); Mean Corpuscular HGB Conc 32.2 g/dl (31.0-36.0); Mean Corpuscular Volume 93.4 fL (80.0-98.0); Mean Platelet Volume 10.9 fL (9.4-12.4); Monocytes Absolute Auto 0.8 X10*3/uL (0.1-1.2); Monocytes Percent Auto 13.9 % (2-11); Neutrophils Absolute Auto 3.5 x10*3/uL (2.0-8.3); Neutrophils Percent Auto 63.9 % (45-73); Platelet Count 172 X10*3/uL (160-400); Red Blood Count 4.23 X10*6/uL (4.60-5.80); Red Cell Distribution Width 11.9 % (11.0-16.0); White Blood Count 5.4 X10*3/uL (4.8-10.8)
[2024-08-27 07:52] LABS: Anion Gap 11 (12-20); Blood Urea Nitrogen 13 mg/dL (9-16); Calcium 8.6 mg/dL (8.4-10.2); Carbon Dioxide 26 mmol/L (22-29); Chloride 104 mmol/L (96-108); Creatinine Clr Calc Pharmacy 111.2; Estimated Glomerular Filt Rate > 60; Glucose Fasting 98 mg/dL (60-99); Potassium 4.3 mmol/L (3.3-5.1); Sodium 137 mmol/L (135-145)
--- NOTE | 2024-08-27 07:56 | HO.ANESPROP2 ---
HPI - Anesthesia Eval Consult details Narrative: Left hip fracture PMFSH Active Problems Active Problems: All Active Problems Closed fracture of left hip (Acute) Past Medical History Medical History Cerebral palsy Family History Family history of problems with anesthesia: No Surgical History History of Problems with Anesthesia: No Social History Social History Household Members: Family Housing: House Do you presently have visiting nurse or other home services: No Patient Tobacco Use Status: Never used Tobacco Use of substances other than those prescribed or required for medical reasons: No Currently Displaying Signs/Symptoms of Drug Intoxication Withdrawal: No Any prior treatment program specific to substance use: No Have you been hit, kicked, punched, or otherwise hurt by someone within the past year? If so, by whom?: No Do you feel safe in your current relationship?: No Current Relationship Is there a partner from a previous relationship who is making you feel unsafe now?: No Are you made to feel afraid or neglected: No Advance Directives: No Advance Directives Information Provided: No Do you have a plan to hurt others: No Plan Recently lost weight without trying: No How much weight loss: Not applicable Eating poorly because of decreased appetite: No Nutrition screen score: 0 Nutrition Risks: No Nutritional Risk Poor oral hygiene: No service: No Meds Allergies Allergy/AdvReac Type Severity Reaction Status Date / Time No Known Allergies Allergy Verified 08/26/24 08:09 Active Medications: Current Medications Acetaminophen (Acetaminophen 325 Mg Tablet) 650 mg PO Q6H PRN PRN Reason: Pain, Mild 1-3,fever,headache Celecoxib (Celecoxib 200 Mg Capsule) 200 mg PO BID [facility] Last Admin: 08/26/24 20:41 Dose: 200 mg Docusate Sodium (Docusate Sodium 100 Mg Capsule) 100 mg PO BID [facility] Last Admin: 08/26/24 20:41 Dose: 100 mg Hydromorphone HCl (Hydromorphone Hcl 0.5 Mg/0.5 Ml Syringe) 0.25 mg IVPUSH Q4H PRN; Protocol PRN Reason: Pain, Severe (Pain Scale 7-10) Cefazolin Sodium/Dextrose (Ancef) 2 gm in 50 mls @ 100 mls/hr IV PREOP ONE Stop: 08/27/24 08:29 Lactated Ringer's (Lr) 1,000 mls @ 100 mls/hr IVCONT .Q10H [facility] Last Infusion: 08/27/24 07:35 Dose: 0 mls/hr Cefazolin Sodium/Dextrose (Ancef) 2 gm in 50 mls @ 100 mls/hr IV PREOP ONE Stop: 08/27/24 08:07 Ondansetron HCl (Ondansetron Hcl 4 Mg/2 Ml Vial) 4 mg IVPUSH Q8H PRN PRN Reason: Nausea and Vomiting Oxycodone HCl (Oxycodone Hcl Immed Release 5 Mg Tablet) 5 mg PO Q4H PRN PRN Reason: Pain, Moderate(Pain Scale 4-6) Last Admin: 08/26/24 17:57 Dose: 5 mg Oxycodone HCl (Oxycodone Hcl Er 10 Mg Tab.Er.12h) 10 mg PO BID [facility] Last Admin: 08/26/24 20:41 Dose: 10 mg Sodium Chloride (0.9 % Sodium Chloride Flush 3 Ml Syringe) 3 ml IVFLUSH QSHIFT [facility] Last Admin: 08/27/24 00:05 Dose: Not Given Home Medications ?Medication ?Instructions ?Recorded ?Confirmed ?Last Taken ?Type No Known Home Meds 08/26/24 08/26/24 Unknown History Exam Height,Weight and Vital Signs: Height 5 ft 3 in Weight 53.1 kg Last Vital Signs Temp 97.8 F 08/27/24 04:00 Pulse 87 08/27/24 04:00 Resp 18 08/27/24 04:00 BP 102/57 L 08/27/24 04:00 Pulse Ox 97 08/27/24 04:00 O2 Del Method Room Air 08/27/24 04:00 Pertinent Lab Results Pertinent Lab Results: Laboratory Tests 08/26/24 08/26/24 08/27/24 11:25 11:52 07:01 WBC 11.7 H 5.4 RBC 4.61 4.23 L Hgb 13.9 L 12.7 L Hct 41.5 L 39.5 L MCV 90.0 93.4 MCH 30.2 30.0 MCHC 33.5 32.2 RDW 11.7 11.9 Plt Count 277 172 D MPV 9.7 10.9 Immature Gran % (Auto) 0.5 H 0.4 Neut % (Auto) 86.9 H 63.9 Lymph % (Auto) 5.2 L 20.2 [place] % (Auto) 6.9 13.9 H Eos % (Auto) 0.0 0.7 Baso % (Auto) 0.5 0.9 Lymph # (Auto) 0.6 L 1.1 L [place] # (Auto) 0.8 0.8 Eos # (Auto) 0.0 0.0 Baso # (Auto) 0.1 0.1 Abs Immat Gran (auto) 0.06 H 0.02 Absolute Neuts (auto) 10.2 H 3.5 Absolute Nucleated RBC 0.000 0.000 Nucleated RBC % (auto) 0.0 0.0 PT 11.2 INR 1.0 Sodium 137 137 Potassium 4.1 4.3 Chloride 104 104 Carbon Dioxide 25 26 Anion Gap 12 11 L BUN 12 13 Creatinine 0.52 0.59 Estim Creat Clear Calc 126.2 111.2 Estimated GFR > 60 > 60 Random Glucose 105 Fasting Glucose 98 Calcium 9.0 8.6 Blood Type O Positive Antibody Screen NEGATIVE Airway Mallampati Class: II TM Dist: >3cm Neck ROM: Full Loose/Missing/Broken Teeth: No Heart: RRR Lungs: CTA Assessment and Plan Assessment Anesthesia Assessment: Anesthesia Plan Discussed and Chart Reviewed Final Anesthetic Review Family History of Problems with Anesthesia: No History of Problems with Anesthesia: No NPO: Yes ASA Class: II Final Preanesthetic Review: No Changes in Pt Med Stat, Meds/Allgs Chart Reviewed, Consent Obtained/Reviewed and Anes Risks/Benef Reviewed Patient Risk: Intermediate Procedure Risk: Intermediate Anesthetic Plan Anesthetic Plan: GA Disposition: Standard PACU
--- NOTE | 2024-08-27 11:01 | MHC.CM.PN ---
Addendum entered by Etta Kim RN 08/27/24 11:04: PER CHART, PATIENT IS [place]ALLIS[place] SPEAKING. ILANA SPEAKS GREEK. Original Note: CM ASSESSMENT COMPLETED W/ SISTER ILANA VIA TELEPHONE. PATIENT IN OR. IMM DELIVERED. PATIENT W/ DX CP. SISTER IS DISPLAY COORDINATOR THROUGH [facility] [employer]. ALSO LIVES W/ MOTHER AND 3 OTHER ADULT SIBLINGS. AMBULATES W/ CANE, USES W/C FOR LONG DISTANCES. SISTER ILANA REPORTS SHE IS HCP AND WILL BRING IN A COPY. PCP KADEEM CASTRO MD DP: WILL NEED PT EVAL. PER HCP, GOAL IS HOME W/ [facility] SERVICES FOR PT. PREFERS TO AVOID STR IF POSSIBLE. FAMILY VS BLS TRANSPORT. CM WILL CONTINUE TO FOLLOW.
--- NOTE | 2024-08-27 11:13 | PM.OP ---
Brief Operative Note Date of Service: 08/27/24 Pre-op diagnosis: Left hip intertrochanteric fracture with subtrochanteric extension Post-op diagnosis: same Procedure: Open reduction and internal fixation of left hip intertrochanteric fracture with placement of a long gamma nail Implants: [place] Gamma 4 left long gamma nail measuring 340 mm in length by 11 mm in diameter with a 125 degree neck-shaft angle, lag screw measuring 85 mm in length, a standard set screw, distal locking bolt measuring 37.5 mm in length Surgeon: Emanuel Dodd MD Anesthesia: GLMA Was an Mattress Spring Encaser used for this Procedure?: No Estimated blood loss (mL): 100 Pathology: none sent Condition: stable Disposition: PACU
--- NOTE | 2024-08-27 11:15 | P.OP_ITS ---
Operative Note Operative Note Date of Service: 08/27/24 Narrative: After the patient was identified as Dipak Hays and his left hip was initialed by myself they were brought to the operating room where general anesthesia was induced by the anesthesiologist in routine fashion. The patient was given 2 g of IV Ancef for infection prophylaxis. The patient was then gently transferred from the hospital bed onto the fracture table. The patient's right lower extremity was placed into the well leg rodrigues. The patient's left lower extremity was placed in gentle in-line traction with their patella parallel to the floor. All bony prominences were well padded. C-arm AP and lateral radiogr aphs were taken to confirm good fracture reduction. The patient's left hip region and thigh were prepped and draped in sterile fashion. A formal time-out was completed. A #10 scalpel blade was used to make a 5 cm incision just proximal to the tip of the greater trochanter. A curved cannulated awl was introduced into the proximal femur in routine fashion. A ball-tipped guidewire was then placed through the cannula and into the femoral canal. The guidewire was passed down to the superior pole of the patella. The awl was removed. The guidewire measured 340 mm in length. Reaming was begun with a 9 mm reamer. Reaming was increased incrementally up to a size 13 mm Reamer distally and 15.5 mm Reamer proximally. The left long gamma nail measuring 11 mm in diameter by 340 mm in length was passed over the guidewire. Good fracture reduction and nail positioning were confirmed using C-arm AP and lateral radiographs. A 2 cm incision was then made where the lag screw trocar met the patient's lateral thigh. The subcutaneous tissues and fascia himanshu were split down to the lateral cortex of the femur using a hemostat. The lag screw trocar was passed down to the lateral cortex of the femur. A threaded guidewire was then placed into the inferior aspect of the femoral head on the AP x-ray and the center of the femoral head on the lateral x-ray. The guidewire measured 85 mm in length. Reaming was then performed over the guidewire to a depth of 85 mm. The lag screw measuring 85 mm in length was then placed over the guidewire. The guidewire was removed. The set screw was then placed into the proximal aspect of the nail and tightened fully. It was then turned 1/4 of a turn counter- clockwise to allow for fracture compression. Our attention was then directed to the distal aspect of the braulio. One distal locking bolt measuring 37.5 mm in length was placed from lateral to medial in routine fashion. Final AP and lateral radiographs showed good fracture reduction and hardware positioning. All 3 wounds were irrigated with copious amounts of normal saline solution. The distal 2 wounds were closed with 2-0 Vicryl and skin cody. The proximal wound was once again irrigated. The fascia himanshu was closed with 0 Vicryl [id number] interrupted suture. The wound was once again irrigated. The subcutaneous tissues were closed with 2-0 Vicryl interrupted suture. The skin was closed with skin cody. Dry sterile dressing was placed over all incisions. The patient was gently transferred from the fracture table onto their hospital bed. The patient was awoken and extubated in the operating room. The patient was transferred to the recovery room in stable condition.
[2024-08-27] MEDS: Lactated Ringers 1,000 ML 100 ML IVCONT ×2 (12:33→21:14)
[2024-08-27] MEDS: oxyCODONE HCl Immed Release 5 MG TABLET PO (14:21)
[2024-08-27] MEDS: ceFAZolin Sodium/Dextrose,Iso 2 GM/50 ML PIGGYBACK IV ×2 (16:07→23:33)
[2024-08-27] MEDS: oxyCODONE HCl ER 10 MG TAB.ER.12H PO (21:13)
[2024-08-27] MEDS: Aspirin 325 MG TABLET PO (21:14)
[2024-08-27] MEDS: Celecoxib 200 MG CAPSULE PO (21:14)
[2024-08-27] MEDS: Docusate Sodium 100 MG CAPSULE PO (21:14)
[2024-08-28 04:00] VITALS: BP 107/58; PULSE 100; RESP 16; TEMP 37.1; O2SAT 96
[2024-08-28] MEDS: Lactated Ringers 1,000 ML 100 ML IVCONT (04:16)
[2024-08-28 06:59] LABS: MANUAL DIFF FLAG NO
[2024-08-28 07:07] LABS: Basophils Absolute Auto 0.1 X10*3/uL (0.0-0.2); Basophils Percent Auto 0.9 % (0-2); Eosinophils Percent Auto 0.7 % (0-4); Hematocrit 29.1 % (42.0-52.0); Hemoglobin 9.4 g/dl (14.0-18.0); Imm Gran Abs Auto 0.02 X10*3/uL (0.00-0.03); Imm Gran Pct Auto 0.4 % (0.0-0.4); Lymphocytes Absolute Auto 0.8 X10*3/uL (1.2-4.9); Lymphocytes Percent Auto 13.5 % (20-40); Mean Corpuscular HGB Conc 32.3 g/dl (31.0-36.0); Mean Platelet Volume 10.2 fL (9.4-12.4); Monocytes Absolute Auto 0.8 X10*3/uL (0.1-1.2); Monocytes Percent Auto 14.7 % (2-11); Neutrophils Absolute Auto 3.9 x10*3/uL (2.0-8.3); Neutrophils Percent Auto 69.8 % (45-73); Platelet Count 213 X10*3/uL (160-400); Red Blood Count 3.13 X10*6/uL (4.60-5.80); Red Cell Distribution Width 11.8 % (11.0-16.0); White Blood Count 5.6 X10*3/uL (4.8-10.8)
[2024-08-28 07:23] LABS: Anion Gap 10 (12-20); Blood Urea Nitrogen 13 mg/dL (9-16); Calcium 8.1 mg/dL (8.4-10.2); Carbon Dioxide 27 mmol/L (22-29); Chloride 104 mmol/L (96-108); Creatinine Clr Calc Pharmacy 119.3; Estimated Glomerular Filt Rate > 60; Glucose Fasting 101 mg/dL (60-99); Potassium 3.9 mmol/L (3.3-5.1); Sodium 137 mmol/L (135-145)
[2024-08-28] MEDS: Celecoxib 200 MG CAPSULE PO ×2 (07:31→20:15)
[2024-08-28] MEDS: Aspirin 325 MG TABLET PO ×2 (07:32→20:15)
[2024-08-28] MEDS: Docusate Sodium 100 MG CAPSULE PO ×2 (07:32→20:15)
[2024-08-28] MEDS: ceFAZolin Sodium/Dextrose,Iso 2 GM/50 ML PIGGYBACK IV (07:32)
[2024-08-28] MEDS: oxyCODONE HCl ER 10 MG TAB.ER.12H PO ×2 (07:32→20:16)
[2024-08-28 07:35] VITALS: BP 113/57; PULSE 102; RESP 16; TEMP 37.4; O2SAT 95
[2024-08-28] MEDS: oxyCODONE HCl Immed Release 5 MG TABLET PO ×2 (09:16→18:31)
[2024-08-28] MEDS: HYDROmorphone HCl 0.5 MG/0.5 ML SYRINGE 0.25 MG IVPUSH (12:30)
--- NOTE | 2024-08-28 13:15 | P.PNOP_ITS ---
Subjective Subjective Date of Service: 08/28/24 Interval history: pod 1 sp Lt hip IMN no overnight events resting in chair No concerns Physical Exam Vital Signs: Vital Signs: Last Vital Signs Temp 99.4 F 08/28/24 07:35 Pulse 102 H 08/28/24 07:35 Resp 16 08/28/24 07:35 BP 113/57 L 08/28/24 07:35 Pulse Ox 95 08/28/24 07:35 O2 Del Method Room Air 08/28/24 07:35 BMI result Body Mass Index 20.7 Const: General: cooperative, healthy appearing and no acute distress Resp: Effort & Inspection: normal respiratory effort and able to speak in complete sentences Cardio: Rate: regular rate Peripheral pulses: Peripheral pulses 2+ throughout GI: Palpation (GI): Soft to palpation Skin: General skin exam: no rashes or lesions noted Extrem: Other: Left hip bandage clean, dry and intact. Calfs upple non tender. NVI. Procedures Date of Service Date of Service: 08/28/24 Progress Note: A&P Assessment and plan (1) Closed fracture of left hip: Status: Acute Assessment and Plan: * Continue pain mgmnt * Begin Aspirin for dvt ppx * begin PT for LT hip IMN * Dispo planning-Pending PT eval, pain mgmnt Time Spent With Patient Time: Total time managing care of this patient today ____ minutes. Quality Stroke Does the patient have a stroke diagnosis?: No VTE Prior VTE?: No VTE Risk Level:: Surgical - very high VTE Device Contraindication: N/A - Device Ordered VTE Drug Contraindication: Treatment Not Indicated
[2024-08-28 15:14] VITALS: BP 110/57; PULSE 112; RESP 18; TEMP 36.7; O2SAT 99
--- NOTE | 2024-08-28 16:28 | MHC.CM.PN ---
PTS MOTHER ASKING ABOUT A HOSPITAL BED FOR PT CM EXPLAINED THIS WOULD HAVE TO GO THROUGH THE PCP AND WOULD NOT BE OBTAINABLE PRIOR TO DC SHE WILL DISCUSS WITH HER DAUGHTER
[2024-08-28] MEDS: 0.9 % Sodium Chloride Flush 3 ML SYRINGE IVFLUSH ×2 (16:52→20:16)
[2024-08-28 19:44] VITALS: BP 132/64; PULSE 104; RESP 18; TEMP 37.2; O2SAT 97
[2024-08-29 04:00] VITALS: BP 129/71; PULSE 91; RESP 16; TEMP 36.6; O2SAT 98
[2024-08-29 06:26] LABS: MANUAL DIFF FLAG NO
[2024-08-29 06:31] LABS: Basophils Percent Auto 0.6 % (0-2); Eosinophils Absolute Auto 0.1 X10*3/uL (0.0-0.4); Eosinophils Percent Auto 1.2 % (0-4); Hematocrit 26.9 % (42.0-52.0); Hemoglobin 9.1 g/dl (14.0-18.0); Imm Gran Abs Auto 0.02 X10*3/uL (0.00-0.03); Imm Gran Pct Auto 0.4 % (0.0-0.4); Lymphocytes Absolute Auto 1.1 X10*3/uL (1.2-4.9); Mean Corpuscular HGB Conc 33.8 g/dl (31.0-36.0); Mean Corpuscular Hemoglobin 31.2 pg (27.0-33.0); Mean Corpuscular Volume 92.1 fL (80.0-98.0); Mean Platelet Volume 9.8 fL (9.4-12.4); Monocytes Absolute Auto 0.7 X10*3/uL (0.1-1.2); Monocytes Percent Auto 14.6 % (2-11); Neutrophils Absolute Auto 3.1 x10*3/uL (2.0-8.3); Neutrophils Percent Auto 62.2 % (45-73); Platelet Count 201 X10*3/uL (160-400); Red Blood Count 2.92 X10*6/uL (4.60-5.80); Red Cell Distribution Width 11.8 % (11.0-16.0)
[2024-08-29 06:45] LABS: Anion Gap 9 (12-20); Blood Urea Nitrogen 12 mg/dL (9-16); Calcium 8.5 mg/dL (8.4-10.2); Carbon Dioxide 30 mmol/L (22-29); Chloride 103 mmol/L (96-108); Creatinine Clr Calc Pharmacy 128.7; Estimated Glomerular Filt Rate > 60; Glucose Fasting 96 mg/dL (60-99); Sodium 138 mmol/L (135-145)
[2024-08-29] MEDS: 0.9 % Sodium Chloride Flush 3 ML SYRINGE IVFLUSH (07:14)
[2024-08-29 07:51] VITALS: BP 124/68; PULSE 70; RESP 16; TEMP 37.2; O2SAT 99
[2024-08-29] MEDS: Docusate Sodium 100 MG CAPSULE PO (08:18)
[2024-08-29] MEDS: oxyCODONE HCl ER 10 MG TAB.ER.12H PO (08:18)
[2024-08-29] MEDS: Aspirin 325 MG TABLET PO (08:18)
[2024-08-29] MEDS: HYDROmorphone HCl 0.5 MG/0.5 ML SYRINGE 0.25 MG IVPUSH (08:18)
[2024-08-29] MEDS: Celecoxib 200 MG CAPSULE PO (08:18)
--- NOTE | 2024-08-29 09:54 | P.PNOP_ITS ---
Subjective Subjective Date of Service: 08/29/24 Interval history: pod 2 sp Lt hip IMN no overnight events No concerns Sitting in the recliner Patient gives a thumbs up when asking how his pain is Physical Exam Vital Signs: Vital Signs: Last Vital Signs Temp 98.9 F 08/29/24 07:51 Pulse 70 08/29/24 07:51 Resp 16 08/29/24 07:51 BP 124/68 08/29/24 07:51 Pulse Ox 99 08/29/24 07:51 O2 Del Method Room Air 08/29/24 07:51 BMI result Body Mass Index 20.7 Const: General: cooperative, healthy appearing and no acute distress Resp: Effort & Inspection: normal respiratory effort and able to speak in complete sentences Cardio: Rate: regular rate Peripheral pulses: Peripheral pulses 2+ throughout GI: Palpation (GI): Soft to palpation Skin: General skin exam: no rashes or lesions noted Extrem: Other: Left hip bandage clean, dry and intact. Calfs upple non tender. NVI. Procedures Date of Service Date of Service: 08/29/24 Progress Note: A&P Assessment and plan (1) Closed fracture of left hip: Status: Acute Assessment and Plan: * Continue pain mgmnt * Continue Aspirin for dvt ppx * Continue PT/OT for LT hip IMN * Dispo planning- PT, pain mgmnt, rehab placement Time Spent With Patient Time: Total time managing care of this patient today ____ minutes. Quality Stroke Does the patient have a stroke diagnosis?: No VTE Prior VTE?: No VTE Risk Level:: Surgical - very high VTE Device Contraindication: N/A - Device Ordered VTE Drug Contraindication: Treatment Not Indicated
[2024-08-29 11:29] VITALS: BP 108/62; PULSE 95; RESP 16; TEMP 36.6; O2SAT 100
--- NOTE | 2024-08-29 12:49 | P.DS_ITS ---
DS: Providers Provider Date of Service: 08/29/24 Date of admission: 08/26/24 11:28 Date of discharge: 08/29/24 Primary care physician: Jessica Dill MD Consults: 08/26/24 12:48 Consult to Hospitalist Routine Comment: [place] [facility] [facility] [place] Reason For Exam: pre op clearance, cerebal palsy, hip fx DS: Diagnosis Discharge Diagnosis (1) Closed fracture of left hip: Status: Acute DS: Summary Hospital Course Hospital Course: The patient underwent a successful left hip IM Nail, they were transferred to PACU and then to the floor to recover. During their stay, their vitals were stable, afebrile at 97.8. Labs were unremarkable, H/H 9.1/26.9. POD 1 they were started on Lovenox for DVT ppx, they also received Physical Therapy services twice a day. Prior to discharge, their dressing was clean dry and intact, and the plan was to be discharged home with VNA services. Time Attestation Discharge Coordination Time (in mins): 30 Quality: Safe Use of Opioids Does Pt have an Active Cancer Diagnosis on the Problem List?: No Quality: Stroke Does the patient have a stroke diagnosis?: No Physical Exam Vital Signs: Vital Signs: Last Vital Signs Temp 97.8 F 08/29/24 11:29 Pulse 95 08/29/24 11:29 Resp 16 08/29/24 11:29 BP 108/62 08/29/24 11:29 Pulse Ox 100 08/29/24 11:29 O2 Del Method Room Air 08/29/24 11:29 BMI result Body Mass Index 20.7 Const: General: cooperative, healthy appearing and no acute distress Resp: Effort & Inspection: normal respiratory effort and able to speak in complete sentences Cardio: Rate: regular rate Peripheral pulses: Peripheral pulses 2+ throughout GI: Palpation (GI): Soft to palpation Skin: General skin exam: no rashes or lesions noted Extrem: Other: Left hip bandage clean, dry and intact. Calfs upple non tender. NVI. DS: Data Data Completed and Pending Labs on day of discharge: Laboratory Results - last 24 hr 08/29/24 05:41 WBC 5.0 RBC 2.92 L Hgb 9.1 L Hct 26.9 L MCV 92.1 MCH 31.2 MCHC 33.8 RDW 11.8 Plt Count 201 MPV 9.8 Immature Gran % (Auto) 0.4 Neut % (Auto) 62.2 Lymph % (Auto) 21.0 [place] % (Auto) 14.6 H Eos % (Auto) 1.2 Baso % (Auto) 0.6 Lymph # (Auto) 1.1 L [place] # (Auto) 0.7 Eos # (Auto) 0.1 Baso # (Auto) 0.0 Abs Immat Gran (auto) 0.02 Absolute Neuts (auto) 3.1 Absolute Nucleated RBC 0.000 Nucleated RBC % (auto) 0.0 Sodium 138 Potassium 4.0 Chloride 103 Carbon Dioxide 30 H Anion Gap 9 L BUN 12 Creatinine 0.51 Estim Creat Clear Calc 128.7 Estimated GFR > 60 Fasting Glucose 96 Calcium 8.5 Discharge Plan Discharge Anticipated Discharge Date/Time: 08/29/24 12:51 Patient Disposition: Home Health Service Discharge Diagnosis: s/p lt hip IMN Referrals: Shasha Dalton PA-C [Physician Program Clinician] - 2 Weeks Jessica Holloway MD [Primary Care Provider] - 1 Week Discharge Medications: New celecoxib 200 mg Capsule 200 mg PO BID 30 Days Qty: 60 0RF acetaminophen 325 mg Tablet 650 mg PO Q6H PRN (Reason: Pain, Mild 1-3,Fever,Headache) 30 Days Qty: 240 0RF aspirin 325 mg Tablet 325 mg PO BID 42 Days Qty: 84 0RF docusate sodium 100 mg Capsule 100 mg PO BID 14 Days Qty: 28 0RF oxycodone 5 mg Tablet 5 mg PO Q4H PRN (Reason: Pain, Moderate(Pain Scale 4-6)) 7 Days Qty: 42 0RF Rx Instructions: Partial Fill upon patient request. Discharge Orders: Discharge Order (Routine); Ordered 08/29/24 Ordered By: Lexi Aldridge Diet: Regular diet Activity on Discharge: Use cane or walker Stand Alone Forms: Patient Portal Discharge page Print Language: Burkinan Care Plan Goals: Restore function of joint Health Concerns: none Plan of Treatment: Gait training, strengthening, ADLs Continue ASA for dvt ppx x4 weeks Keep dressing clean,dry and intact-no showering or tub baths Follow up with Orthopedics in 2 weeks Assessment: Physical Therapy Pain management DVT prophylaxis
--- NOTE | 2024-08-29 12:52 | P.F2F_ITS ---
Service Date Service Date: 08/29/24 Encounter Date of encounter: 08/29/24 Reasons for Services Signs and symptoms assessed: s/p left hip IM Nail Pt. is considered homebound due to recent surgery. Unable to drive, poor balance, poor gait mechanics. Reason for physical therapy: home safety and mobility, therapeutic exercises, restore joint function, gait/transfer training and ADL training Reason for occupational therapy: home safety and mobility, therapeutic exercises, restore joint function, gait/transfer training and ADL training Homebound: Leaving the home is medically contraindicated at this time without the asist of a device and/or another person due th the listed conditions above and below. Reason homebound: unsteady gait / fall risk, leg weakness, bedbound/chairbound, pain with ambulation, poor balance / fall risk, cognitively impaired / unsafe and unable to drive Certification: Based on the above findings, I certify that this patient is confined to the home and needs intermittent intermediate care, physical therapy and/or speech therapy, or continues to need occupational therapy. The patient is under my care, and I have initiated the establishment of the plan of care. The patient will be followed by a physician who will periodically review the plan of care. Time Spent With Patient Time: Total time managing care of this patient today ____ minutes.
--- NOTE | 2024-08-29 13:15 | MHC.CM.PN ---
Patient medically cleared for dc home w/ [facility] services for PT/OT. CM reviewed w/ sister/HCP/intensive care ambulance paramedic via telephone who is argreeable to plan. BLS transport scheduled for 4pm. [facility] booking ID# [id number]. Sister and RN aware.
[2024-08-29 15:13] VITALS: BP 116/57; PULSE 104; RESP 18; TEMP 37.2; O2SAT 99
[2024-08-29] MEDS: oxyCODONE HCl Immed Release 5 MG TABLET PO (15:14)
== END 2024-08-29 16:29 | disposition home health service (06) | DRG 482 ==
LOC: HO.ED 11:22 → HO.EDOVER 11:35 → HO.S3 11:44
PROVIDERS: Orthopaedic Surgery; Admitting Provider Physician Assistant; Emergency Provider Emergency Medicine; PCP Internal Medicine; Visit Provider Physician Assistant
PROC: 0QS706Z Reposition Left Upper Femur with Intramedullary Internal Fixation Device, Open Approach (ICD-10-PCS; principal; 2024-08-27 08:00)
DX: S72.102A Unspecified trochanteric fracture of left femur, initial encounter for closed fracture (principal); W18.2XXA Fall in (into) shower or empty bathtub, initial encounter; G80.9 Cerebral palsy, unspecified; Z79.899 Other long term (current) drug therapy
CPT/HCPCS: 36415; 71045; 73502; 73562; 80048; 85025; 85610; 86850; 86900; 86901; 97162; 97166; 97530; 99285; C1713; J0131; J0690; J1171; J1885; J2003; J2371; J2405; J2704; J3010; J7120

== ENCOUNTER → 2024-08-26 08:29 | Outpatient (BNV) | payer OTHER, SELFPAY | PROVIDERS: Emergency Provider Emergency Medicine; PCP Internal Medicine; Visit Provider Radiology Diagnostic Radiology | DX: S72.002A Fracture of unspecified part of neck of left femur, initial encounter for closed fracture (principal); G89.11 Acute pain due to trauma | CPT/HCPCS: 71045; 73502; 73562 ==

== ENCOUNTER → 2024-08-26 11:28 | Outpatient (BNV) | payer OTHER, SELFPAY | PROVIDERS: Admitting Provider Physician Assistant; Emergency Provider Emergency Medicine; PCP Internal Medicine; Visit Provider Nurse Practitioner Acute Care | DX: S72.002A Fracture of unspecified part of neck of left femur, initial encounter for closed fracture (principal) | CPT/HCPCS: 99223 ==

== ENCOUNTER → 2024-08-26 11:28 | Outpatient (BNV) | payer OTHER, SELFPAY | PROVIDERS: Admitting Provider Physician Assistant; Emergency Provider Emergency Medicine; PCP Internal Medicine; Visit Provider Physician Assistant | DX: S72.002A Fracture of unspecified part of neck of left femur, initial encounter for closed fracture (principal) | CPT/HCPCS: 99222 ==

== ENCOUNTER 2024-09-05 09:08 | Outpatient (AMB) | payer OTHER, SELFPAY ==
[2024-09-05 09:22] VITALS: BP 122/68; PULSE 94; TEMP 37.3; O2SAT 98
--- NOTE | 2024-09-05 09:22 | A.OFFPC_ITS ---
Vital Signs 09/05/24 09:22 Height 5 ft 3 in BMI Reason not done Patient refused/unable BP 122/68 Blood Pressure Location Lt brachial Position Sitting Pulse 94 Pulse Source Pulse Oximeter Temp 99.2 F Temp Source Oral Pulse Oximetry (%) 98 Oxygen Delivery Method Room Air Intake Visit Reasons: [facility] [place] 08/29 Broken hip bone Intake Note: Patient is here for hospital discharge follow up. Patient was admitted on 08/26/2024 and discharged from [facility] [place] on 08/29/2024. Director Style Required: No Accompanied by: Sister Allergies celecoxib Allergy (Verified 09/17/24 16:20) Hives Tobacco use date assessed: 09/05/24 Dental Screening Dental Screen Date: 09/05/24 Did you have a dental visit in the last 12 months?: Yes Did you have a dental problem in the last 6 months where you did not have access to dental care?: No Was dental information given to patient?: Patient has dentist HPI [facility] – [place] 08/29 Broken hip bone HPI Details The patient is a 49-year-old male past medical history of cerebral palsy, nonverbal at baseline he uses a walker to ambulate. The patient is presenting today with s/p open reduction and internal fixation of intertrochanteric fracture of left hip. The patient this is accompanied by sister Per note review: The patient fell in the shower at home and landed on his left side. He was brought to the ED via EMS, x-ray showed pelvis/hip significant for left intertrochanteric fracture The patient presented in wheelchair. Positive pedal pulses, and dressing intact the left hip. No signs or symptom of pain/distress Patient sister reports that he will be seeing Orthopedics next week The patient has a diffuse rash all over his right and left arms and stomach area His sister reports that the patient has been itching the area The patient was also reports that the patient urine looks brown and smells [facility] Medical History Cerebral palsy Family history of diabetes mellitus Surgical History Recent surgical procedure on lower extremity Family History Father Diabetes Hypertension Mother Hypertension Diabetes Social History Household Members: Family Housing: House Do you presently have visiting nurse or other home services: No Alcohol intake: never Patient Tobacco Use Status: Never used Tobacco e-Cigarette/Vaping Use: Never Used Second Hand Smoke Exposure: No service: No Current occupational status: disabled Cognitive needs: Yes Hearing needs: No Vision needs: No Questionnaire PHQ-9 Over the last 2 weeks, how often have you been bothered by any of the following problems? 1. Little interest or pleasure in doing things: not at all 2. Feeling down, depressed, or hopeless: not at all 3. Trouble falling or staying asleep, or sleeping too much: not at all 4. Feeling tired or having little energy: not at all 5. Poor appetite or overeating: not at all 6. Feeling bad about yourself - or that you are a failure or have let yourself or your family down: not at all 7. Trouble concentrating on things, such as reading the newspaper or watching television: not at all 8. Moving or speaking so slowly that other people could have noticed. Or the opposite - being so fidgety or restless that you have been moving around a lot more than usual: not at all 9. Thoughts that you would be better off or of hurting yourself in some way: not at all Total score: 0 Depression Screening Interpretation: Negative Depression Screening Done: Yes Source: Developed by Drs. Loc Mcmahon, More Rayo, Sree Andrews and colleagues, with an educational priya from [employer]. Thrive Questionnaire Date Thrive assessed: 09/05/24 I am a: Patient What is your living situation today?: I choose not to answer this question Within the past 12 months, did the food you bought not last and you didn't have the money to get more?: I choose not to answer this question Within the past 12 months, did you worry whether your food would run out before you got money to buy more?: I choose not to answer this question Do you have trouble paying for medicines?: I choose not to answer this question Do you have trouble getting transportation to medical appointments?: I choose not to answer this question Do you have trouble paying your heating and electricity bill?: I choose not to answer this question Do you have trouble taking care of your child, family member or friend?: I choose not to answer this question Do you have trouble with day-to-day activities such as bathing, preparing meals, shopping, managing finances, etc.?: I choose not to answer this question Are you currently unemployed and looking for a job?: I choose not to answer this question Are you interested in more education?: I choose not to answer this question Please select the resources that you would like help with: None Currently or been in a relationship where the following occur: I choose not to answer THRIVE Score: 0 AUDIT C Alcohol Use Questionnaire (AUDIT-C) 1. How often do you have a drink containing alcohol?: Never Total Score: 0 Score Reviewed/Action Taken: No DIANA-7 AMB Questionnaire DIANA-7 Date DIANA - 7 assessed: 09/05/24 Feeling nervous, anxious, or on edge: 0 = Not at all Not being able to stop or control worryin = Not at all Worrying too much about different things: 0 = Not at all Trouble relaxin = Not at all Being so restless that it is hard to sit still: 0 = Not at all Becoming easily annoyed or irritable: 0 = Not at all Feeling afraid as if something awful might happen: 0 = Not at all Total DIANA-7 score (0-4 normal; 5-9 mild; 10-14 moderate; 15-21 severe): 0 Source: Developed by Drs. Loc Mcmahon, More Rayo, Sree Andrews and colleagues, with an educational priya from [employer]. Review of Systems Const Denies chills and Denies fever(s) Eyes Reports no additional complaints ENT Reports no additional complaints Card Denies chest pain, Denies leg edema and Denies lightheadedness Resp Denies cough and Denies hemoptysis GI Denies change in bowel habits Denies dysuria, Denies urinary frequency, Denies urinary urgency and Reports other (Dark colored and malodor) Musc Reports arthralgias (Left hip intermittently s/p surgery (controlled with pain meds)) Skin/Breast Reports pruritus and Reports rash (Widespread(bilateral arms, torso)) Neuro Denies behavioral changes Psych Denies behavioral changes Physical exam (Primary Care) Vital Signs: Last Vital Signs Temp 99.2 F 03/25/25 09:22 Pulse 94 09/05/24 09:22 BP 122/68 09/05/24 09:22 Pulse Ox 98 09/05/24 09:22 Oxygen Delivery Method Room Air 09/05/24 09:22 Tobacco/Smoking Status: Tobacco use Status Tobacco use date assessed 09/05/24 09/05/24 09:34 Patient Tobacco Use Status Never used Tobacco 09/05/24 09:26 e-Cigarette/Vaping Use Never Used 09/05/24 09:26 PHQ-9: PHQ-9 Score PHQ-9: Total score 0 09/05/24 13:56 Depression Screening Interpretation: Negative Thrive Assessment: Date of Thrive Assessment Date Thrive assessed 09/05/24 09/05/24 09:22 Currently or been in a relationship where the following occur: I choose not to answer Const General: healthy appearing, no acute distress, alert and awake Nutritional Appearance: well nourished HENMT Ears: external ears normal General nose exam: Normal external nose present Eyes Conjunctivae: conjunctivae normal Sclerae: sclerae normal Pupils: Equal, round and reactive pupils present Neck Neck: Yes no lymphadenopathy and Yes no JVD Thyroid: Thyroid normal Carotids: no bruits Chest Chest palpation & inspection: rash Resp Effort & Inspection: normal respiratory effort and not tachypneic Auscultation: no crackles, no rales, no rhonchi and no wheezes Cardio Rate: regular rate Rhythm: regular rhythm Heart sounds: no murmurs and normal S1 and S2 GI Palpation (GI): Soft to palpation, nontender, no hepatomegaly and no splenomegaly Auscultation: normal bowel sounds Back/Spine/Pelvis Sacroiliac joints: on the left Skin General skin exam: dry skin Rashes: rashes noted (bilateral arms and torso) maculopapular rash diffuse Neuro Other: Nonverbal at baseline. Information collected from sister Cranial nerves: Yes Equal, round and reactive pupils present Extrem Right upper extremity: full ROM Left upper extremity: full ROM Right lower extremity: full ROM; no edema Left lower extremity: full ROM and hip/thigh (s/p fx dressing intact, no s/sx of infection); no edema Coding Level of Care Code Est Pt Level 3 (17852) Diagnoses Closed fracture of left hip with routine healing, subsequent encounter S72.002D Encounter type: subsequent encounter Fracture healing: with routine healing Pruritic rash L28.2 Foul smelling urine R82.90 Time Spent (min) 34 Assessment & Plan Assessment & Plan (1) Closed fracture of left hip: Code(s): S72.002A - Fracture of unspecified part of neck of left femur, initial encounter for closed fracture Category: Medical Qualifiers: Encounter type: subsequent encounter Fracture healing: with routine healing Qualified Code(s): S72.002D - Fracture of unspecified part of neck of left femur, subsequent encounter for closed fracture with routine healing Plan: Status post fall resulted in intertrochanteric fracture. Open reduction and internal fixation of interochanteric fracture with placement of a long gamma nail implant. The patient does not appear to be in any distress. His pain seems to be well-controlled. No signs or symptoms of infection. Follow up with Orthopedics as scheduled (2) Pruritic rash: Code(s): L28.2 - Other prurigo Category: Medical Plan: Per sister, the patient was only on senna tabs prior to surgery. The patient developed a widespread itchy, maculopapular rash. We will discontinue celecoxib and started the patient on prednisone tapered. Hydroxyzine 50 mg p.o. b.i.d. p.r.n. ordered (3) Foul smelling urine: Code(s): R82.90 - Unspecified abnormal findings in urine Category: Medical Plan: Urinalysis with reflex ordered Orders: Orders UA CC w/rflx Micro + Cult 09/07/24 R82.90 - Unspecified abnormal findings in urine Medications: New prednisone see taper instructions 4 tabs x 2 days, 3 tabs x 2 days, 2 tabs x 2 days, 1 tab x2 days =20 tabs over 8 days 10 mg PO DIRECTED 20 tabs 0RF L28.2 - Other prurigo hydroxyzine HCl 50 mg PO BID PRN 60 tabs 0RF itching
== END 2024-09-05 10:18 | disposition home or self-care (01) ==
LOC: HO.HMCH 09:09
PROVIDERS: PCP Internal Medicine
DX: S72.002D Fracture of unspecified part of neck of left femur, subsequent encounter for closed fracture with routine healing (principal); L28.2 Other prurigo; R82.90 Unspecified abnormal findings in urine

== ENCOUNTER → 2024-09-05 09:08 | Outpatient (BNVA) | payer OTHER, SELFPAY | PROVIDERS: PCP Internal Medicine | DX: S72.002D Fracture of unspecified part of neck of left femur, subsequent encounter for closed fracture with routine healing (principal); L28.2 Other prurigo; R82.90 Unspecified abnormal findings in urine | CPT/HCPCS: 99212 ==

== ENCOUNTER 2024-09-07 08:34 | Outpatient (REF) | payer OTHER, SELFPAY ==
[2024-09-07 08:55] LABS: Appearance Urine Clear; Color Urine Dark Yellow; Glucose Urine UA Negative (Negative); Leukocyte Esterase Urine Negative (Negative); Nitrite Urine Negative (Negative); PH 6.5 (5.0-9.0); Urine Blood Negative (Negative); Urine Ketones Negative (Negative); Urine Protein Negative (Neg-Trace)
== END 2024-09-07 08:35 | disposition home or self-care (01) ==
LOC: HO.LNP 08:34
DX: R82.90 Unspecified abnormal findings in urine (principal)
CPT/HCPCS: 81003

== ENCOUNTER 2024-09-14 08:25 | Outpatient (REF) | payer OTHER, SELFPAY ==
--- NOTE | ~2024-09-14 | XR_ITS ---
EXAMINATION: XR FEMUR, LEFT CLINICAL INFORMATION: M79.606 - Pain in leg, unspecified COMPARISON: August 26, 2024 left hip x-ray. TECHNIQUE: AP and lateral views of the left femur were obtained. FINDINGS: Intramedullary braulio placed throughout the diaphysis of the femur extending from the greater trochanter to the distal diaphysis/metaphysis and anchor with a femoral head neck screw and small screw in the distal segment. Bony fragments involving the lesser trochanter. Sclerosis and the intertrochanter region. Normal alignment of the fracture fragments. Skin cody, left hip. XR/XR femur LT 2V IMPRESSION: Status post open reduction internal fixation of an intratrochanteric fracture left femur. Satisfactory. Electronically signed by: Arturo Perez MD 09/15/2024 08:20 AM EDT
== END 2024-09-14 08:26 | disposition home or self-care (01) ==
LOC: HO.HOSX 08:25
PROVIDERS: Visit Provider Physician Assistant
DX: M79.605 Pain in left leg (principal); S72.002D Fracture of unspecified part of neck of left femur, subsequent encounter for closed fracture with routine healing; Z98.890 Other specified postprocedural states
CPT/HCPCS: 73552; 99212

== ENCOUNTER 2024-09-14 10:59 | Outpatient (AMB) | payer OTHER, SELFPAY ==
--- NOTE | 2024-09-14 11:02 | MHC.OFFVIS ---
Intake Visit Reasons: PO-s/p lt hip IMN 07/30/24 Intake Note: Dipak is a 49 year old male who presents today with mother and sister for a post operative left hip IMN, DOS 07/30/24 Patient reports he is doing well, states no pain or concerns. He continues to attend OT/PT. Business Intelligence Consultant Services: Business Intelligence Consultant Present Business Intelligence Consultant Name: Rimma WESTON KATIA Allergies celecoxib Allergy (Verified 09/14/24 11:24) Hives Medication List - Last Reconciled 09/14/24 by Shasha Dalton PA-C acetaminophen 650 mg (2 x 325 mg) PO Q6H PRN 30 days aspirin 325 mg PO BID 42 days docusate sodium 100 mg PO BID 14 days hydroxyzine HCl 50 mg PO BID PRN oxycodone 5 mg PO Q4H PRN 7 days [Semi electric hospital bed with mattress As directed] HPI HPI PO-s/p lt hip IMN 07/30/24 DR: Details: 49-year-old gentleman returns to the office today status post left hip IM nail 07/30/2024. He is primarily wheelchair-bound due to his cerebral palsy. He presents today accompanied by his family members who state he is working with physical therapy and he does get up to use a walker with assistance. [facility] Medical History Family history of diabetes mellitus Surgical History Recent surgical procedure on lower extremity Family History Father Diabetes Hypertension Mother Hypertension Diabetes Social History (Updated 09/05/24 @ 09:26 by Cynthia Avery CMA) Household Members: Family Housing: House Do you presently have visiting nurse or other home services: No Alcohol intake: never Patient Tobacco Use Status: Never used Tobacco e-Cigarette/Vaping Use: Never Used Second Hand Smoke Exposure: No service: No Current occupational status: disabled Cognitive needs: Yes Hearing needs: No Vision needs: No Review of Systems Const All systems reviewed & are unremarkable except as noted in HPI and below Physical Exam Extrem Other: Left hip incision clean dry and intact. No erythema or drainage. Neurovascularly intact. Results Reviewed Results Reviewed: X-rays of the left hip obtained in the office today and reviewed by me show intact intramedullary nail with stable fracture pattern. Assessment & Plan Assessment & Plan (1) Closed fracture of left hip: Code(s): S72.002A - Fracture of unspecified part of neck of left femur, initial encounter for closed fracture Category: Medical Plan: [place] removed today Steri-Strips applied. He will continue to work with physical therapy for strengthening exercises and gait training. He will see us back in 4 weeks with x-rays sooner if needed. Orders: Orders XR femur LT 2V Today M79.606 - Pain in leg, unspecified Coding Level of Care Code Global (35369) Diagnoses Closed fracture of left hip S72.002A
== END 2024-09-14 11:48 | disposition home or self-care (01) ==
LOC: HO.HOS 11:00
PROVIDERS: PCP Internal Medicine; Visit Provider Physician Assistant
DX: S72.002A Fracture of unspecified part of neck of left femur, initial encounter for closed fracture (principal)
CPT/HCPCS: 99024

== ENCOUNTER → 2024-09-14 11:02 | Outpatient (BNV) | payer OTHER, SELFPAY | PROVIDERS: Visit Provider Radiology Diagnostic Radiology | DX: M79.606 Pain in leg, unspecified (principal) | CPT/HCPCS: 73552 ==

== ENCOUNTER 2024-10-16 08:32 | Outpatient (REF) | payer OTHER, SELFPAY | END 2024-10-16 08:33 | disposition home or self-care (01) | LOC: HO.HOSX 08:32 | PROVIDERS: Visit Provider Physician Assistant | DX: Z13.89 Encounter for screening for other disorder (principal) ==

== ENCOUNTER 2024-10-26 10:28 | Outpatient (AMB) | payer OTHER, SELFPAY ==
--- NOTE | 2024-10-26 10:47 | MHC.OFFVIS ---
Vital Signs 10/26/24 10:48 Height 5 ft 3 in Intake Visit Reasons: PO-s/p lt hip IMN 07/30/24 Intake Note: Dipak is a 49 year old male who presents today for a post operative LT hip IMN 07/30/24 . At his last visit he was to continue working with physical therapy for strengthening exercises and gait training, he will follow up in 4 weeks with x-rays. Patient reports no concerns wondering when can go back to program. Accompanied by: Mother Allergies celecoxib Allergy (Verified 10/26/24 10:51) Hives Medication List - Last Reconciled 10/26/24 by Shasha Dalton PA-C acetaminophen 650 mg (2 x 325 mg) PO Q6H PRN 30 days aspirin 325 mg PO BID 42 days docusate sodium 100 mg PO BID 14 days hydroxyzine HCl 50 mg PO BID oxycodone 5 mg PO Q4H PRN 7 days [Semi electric hospital bed with mattress As directed] HPI HPI PO-s/p lt hip IMN 07/30/24 DR: Details: 49-year-old male returns to the office today 3 months status post left hip IM nail with Dr. Dodd. Patient is doing well and has no concerns for pain. [facility] Medical History Cerebral palsy Family history of diabetes mellitus Surgical History Recent surgical procedure on lower extremity Family History Father Diabetes Hypertension Mother Hypertension Diabetes Social History Household Members: Family Housing: House Do you presently have visiting nurse or other home services: No Alcohol intake: never Patient Tobacco Use Status: Never used Tobacco e-Cigarette/Vaping Use: Never Used Second Hand Smoke Exposure: No service: No Current occupational status: disabled Cognitive needs: Yes Hearing needs: No Vision needs: No Review of Systems Const All systems reviewed & are unremarkable except as noted in HPI and below Physical Exam Extrem Other: Left hip incision clean dry and intact. No erythema or drainage. Neurovascularly intact. Results Reviewed Results Reviewed: X-rays of the left hip obtained in the office today and reviewed by me show intact intramedullary nail with stable fracture pattern. Assessment & Plan Assessment & Plan (1) Closed fracture of left hip: Code(s): S72.002A - Fracture of unspecified part of neck of left femur, initial encounter for closed fracture Category: Medical Qualifiers: Encounter type: subsequent encounter Fracture healing: with routine healing Qualified Code(s): S72.002D - Fracture of unspecified part of neck of left femur, subsequent encounter for closed fracture with routine healing Plan: The patient will continue to increase activities as tolerated. This includes returning to the day program. If there is any concerns or symptoms arise they can reach out to our office otherwise he can follow up as needed. Orders: Orders XR femur LT 2V Today M79.606 - Pain in leg, unspecified Coding Level of Care Code Est Pt Level 3 (80696) Complex EM visit Add On G2211 Diagnoses Closed fracture of left hip with routine healing, subsequent encounter S72.002D Encounter type: subsequent encounter Fracture healing: with routine healing
== END 2024-10-26 11:05 | disposition home or self-care (01) ==
LOC: HO.HOS 10:28
PROVIDERS: Visit Provider Physician Assistant
DX: S72.002D Fracture of unspecified part of neck of left femur, subsequent encounter for closed fracture with routine healing (principal)
CPT/HCPCS: 99213; G2211

== ENCOUNTER → 2024-10-26 10:39 | Outpatient (BNV) | payer OTHER, SELFPAY | PROVIDERS: Visit Provider Radiology Diagnostic Radiology | DX: S72.142D Displaced intertrochanteric fracture of left femur, subsequent encounter for closed fracture with routine healing (principal) | CPT/HCPCS: 73552 ==

== ENCOUNTER 2024-10-26 12:17 | Outpatient (REF) | payer OTHER, SELFPAY ==
--- NOTE | ~2024-10-26 | XR_ITS ---
EXAMINATION: XR FEMUR 2 VIEWS LEFT HISTORY: M79.606 - Pain in leg, unspecified COMPARISON: Comparison is made with the prior examination dated 09/14/2024. FINDINGS: AP and lateral views of the left femur are submitted. Osseous mineralization is normal. The patient is again noted to be status post internal fixation of an intertrochanteric fracture with a compression screw and intramedullary braulio. The hardware is intact. There is callus formation noted at the fracture site, consistent with healing. The joint spaces are preserved. The soft tissues are unremarkable. XR/XR femur LT 2V IMPRESSION: Healing internally fixed intratrochanteric fracture of the left femur. Electronically signed by: Loc Whaley MD 10/26/2024 11:27 AM EDT
== END 2024-10-26 12:18 | disposition home or self-care (01) ==
LOC: HO.HOSX 12:17
PROVIDERS: Visit Provider Physician Assistant
DX: M79.605 Pain in left leg (principal); S72.002D Fracture of unspecified part of neck of left femur, subsequent encounter for closed fracture with routine healing; X58.XXXD Exposure to other specified factors, subsequent encounter
CPT/HCPCS: 73552; 99212

== ENCOUNTER 2024-11-20 02:14 | Emergency (ER) | payer OTHER, SELFPAY ==
--- NOTE | 2024-11-20 | ECG_ITS ---
Test Reason : fall Blood Pressure : */* mmHG Vent. Rate : 111 BPM Atrial Rate : 111 BPM P-R Int : 116 ms QRS Dur : 78 ms QT Int : 310 ms P-R-T Axes : 61 23 31 degrees QTcB Int : 421 ms Sinus tachycardia Otherwise normal ECG No previous ECGs available Referred By: Generic ED Physician Electronically Signed By: ARTEMIO LEONARDO MD
--- NOTE | ~2024-11-20 | CT_ITS ---
CLINICAL HISTORY: fall CT head without contrast Comparison: None Findings: There is no acute intracranial hemorrhage. Ventricles are of normal size and shape. No mass effect or midline shift is present. The dominique-white matter differentiation appears normal. The visualized portions of the orbits, paranasal sinuses, and mastoids are unremarkable. There is cerumen in the external auditory canals. No fractures are identified. IMPRESSION: No intracranial abnormality. This document has been electronically signed by: Nicolas Bee MD on 11/20/2024 04:38:34
--- NOTE | ~2024-11-20 | CT_ITS ---
CLINICAL HISTORY: fall CT cervical spine without contrast Comparison: None Findings: The neck is in slight flexion. There is no listhesis. There is no fracture. There is multilevel degenerative disc disease. 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 IMPRESSION: No evidence of cervical spine injury. This document has been electronically signed by: Nicolas Bee MD on 11/20/2024 04:40:57
--- NOTE | ~2024-11-20 | XR_ITS ---
CLINICAL HISTORY: fall 1 view pelvis Comparison: DX/SR - XR FEMUR LT 2V - 10/26/24 10:39 EDT Findings: There is a healing reduced and internally fixated proximal left femur fracture. There is no evidence of an acute fracture. Joint alignment is normal. Hip joint spaces are preserved. IMPRESSION: No acute findings. This document has been electronically signed by: Nicolas Bee MD on 11/20/2024 03:56:28
[2024-11-20 02:17] VITALS: BP 78/44; BP 96/79; PULSE 104; PULSE 106; RESP 16; TEMP 37; O2SAT 100; O2SAT 89; BMI 19.2
[2024-11-20 02:35] LABS: Basophils Percent Auto 0.4 % (0-2); Hematocrit 39.1 % (42.0-52.0); Hemoglobin 12.8 g/dl (14.0-18.0); Lymphocytes Absolute Auto 0.3 X10*3/uL (1.2-4.9); Lymphocytes Percent Auto 10.2 % (20-40); Mean Corpuscular HGB Conc 32.7 g/dl (31.0-36.0); Mean Corpuscular Volume 88.5 fL (80.0-98.0); Mean Platelet Volume 8.7 fL (9.4-12.4); Neutrophils Absolute Auto 2.2 x10*3/uL (2.0-8.3); Neutrophils Percent Auto 89.4 % (45-73); Platelet Count 206 X10*3/uL (160-400); Red Blood Count 4.42 X10*6/uL (4.60-5.80); Red Cell Distribution Width 12.1 % (11.0-16.0); SCAN SMEAR FLAG 1; White Blood Count 2.5 X10*3/uL (4.8-10.8)
[2024-11-20 02:36] LABS: MANUAL DIFF FLAG NO
--- NOTE | 2024-11-20 02:44 | ED_ITS ---
HPI - General Adult General Chief complaint: Fall Stated complaint: Hypotensive 82/57, now 92/57 O2 in 70 Time Seen by Provider: 11/20/24 02:44 Source: patient Mode of arrival: ambulatory Limitations: no limitations History of Present Illness ED Provider: HPI narrative: Patient's history will palsy walks using walker earlier today patient went to the bathroom and lost balance and fell backwards hitting his head and left hip to the ground no vomiting patient does complain of pain at back of the head no vomiting no change in mental status also complaining of pain in the left hip patient has had a surgery in the left hip Related Data Previous Rx's ?Medication ?Instructions ?Recorded acetaminophen 325 mg tablet 650 mg (2 x 325 mg) PO Q6H PRN 08/28/24 Pain, Mild 1-3,Fever,Headache 30 days #240 tabs aspirin 325 mg tablet 325 mg PO BID 42 days #84 tabs 08/28/24 docusate sodium 100 mg capsule 100 mg PO BID 14 days #28 caps 08/28/24 oxycodone 5 mg tablet 5 mg PO Q4H PRN Pain, 08/28/24 Moderate(Pain Scale 4-6) 7 days #42 tabs Semi electric hospital bed with #1 ea 09/12/24 mattress hydroxyzine HCl 50 mg tablet 50 mg PO BID for itch #180 tabs 09/29/24 Allergies Allergy/AdvReac Type Severity Reaction Status Date / Time celecoxib Allergy Hives Verified 11/20/24 02:25 Review of Systems 2 Review of Systems: Yes Unobtainable due to mental condition PMF Past Medical History Medical History Cerebral palsy Family history of diabetes mellitus Surgical History Recent surgical procedure on lower extremity Family History Family History Father Diabetes Hypertension Mother Hypertension Diabetes Social History Social History Household Members: Family Housing: House Do you presently have visiting nurse or other home services: No Alcohol intake: never Patient Tobacco Use Status: Never used Tobacco e-Cigarette/Vaping Use: Never Used Second Hand Smoke Exposure: No Advance Directives: Yes Advance Directives Information Provided: No Advance Directives on File: No Do you have a plan to hurt others: No Plan service: No Current occupational status: disabled Cognitive needs: Yes Hearing needs: No Vision needs: No Physical Exam ED Vital Signs: Vital Signs - 24 hr 11/20/24 02:17 Temperature 98.6 F Pulse Rate 106 H Respiratory Rate 16 Blood Pressure 96/79 Pulse Oximetry 100 Oxygen Delivery Method Room Air BMI result Body Mass Index 19.2 Appearance: Alert. Oriented X 2 No acute distress. Eyes: PERRLA, No Nystagmus ENT: Pharynx normal. Oral Mucosa moist Neck: Normal inspection. Neck supple. CVS: Normal heart rate and rhythm. Pulses normal. Respiratory: No respiratory distress. Equal air entry bilateral, no wheezing/rales/rhonchi Abdomen: Soft and nontender. Bowel sounds are present, no mass palpable, no CVA tenderness Skin: Skin warm and dry. Normal skin color. Normal skin turgor. Extremities: No lower extremity edema. No calf tenderness pelvis stable Neuro: Oriented X 2. Limited lower extremity movement Medical Decision Making Medical Decision Making [facility] Narrative: Patient is status post mechanical fall x-ray and labs negative will discharge patient back home Lab Data [facility] Lab Attestation statement: I reviewed the patient's lab results. 11/20/24 02:30 11/20/24 02:30 Labs: Lab Results 11/20/24 Range/Units 02:30 WBC 2.5 L (4.8-10.8) X10*3/uL RBC 4.42 L D (4.60-5.80) X10*6/uL Hgb 12.8 L D (14.0-18.0) g/dl Hct 39.1 L D (42.0-52.0) % MCV 88.5 (80.0-98.0) fL MCH 29.0 (27.0-33.0) pg MCHC 32.7 (31.0-36.0) g/dl RDW 12.1 (11.0-16.0) % Plt Count 206 (160-400) X10*3/uL MPV 8.7 L (9.4-12.4) fL Immature Gran % (Auto) 0.0 (0.0-0.4) % Neut % (Auto) 89.4 H (45-73) % Lymph % (Auto) 10.2 L (20-40) % Sterling % (Auto) 0.0 L (2-11) % Eos % (Auto) 0.0 (0-4) % Baso % (Auto) 0.4 (0-2) % Lymph # (Auto) 0.3 L (1.2-4.9) X10*3/uL Sterling # (Auto) 0.0 L (0.1-1.2) X10*3/uL Eos # (Auto) 0.0 (0.0-0.4) X10*3/uL Baso # (Auto) 0.0 (0.0-0.2) X10*3/uL Abs Immat Gran (auto) 0.00 (0.00-0.03) X10*3/uL Absolute Neuts (auto) 2.2 (2.0-8.3) x10*3/uL Absolute Nucleated RBC 0.000 (0.0-0.012) X10*3/uL Nucleated RBC % (auto) 0.0 (0.0-0.2) /100WBC Sodium 141 (135-145) mmol/L Potassium 3.3 (3.3-5.1) mmol/L Chloride 108 (96-108) mmol/L Carbon Dioxide 23 (22-29) mmol/L Anion Gap 13 (12-20) BUN 19 H (9-16) mg/dL Creatinine 0.97 (0.5-1.4) mg/dL Estim Creat Clear Calc 68.6 Estimated GFR > 60 Random Glucose 156 H (60-115) mg/dL Calcium 8.3 L (8.4-10.2) mg/dL Total Bilirubin 0.8 (0.0-1.0) mg/dL AST 88 H (5-37) U/L ALT 55 H (0-40) U/L Alkaline Phosphatase 112 (39-117) U/L Troponin I High Sens 3.6 (<3.5-35.0) ng/L Total Protein 5.8 L (6.5-8.0) g/dL Albumin 3.4 L (3.5-5.0) g/dL Independent Interpretation I performed an independent interpretation of an: Plain X-Ray Radiology Impression Discussion of test interpretation with radiology: I have reviewed the radiologist's reading. Radiologist Impression: No acute Discharge Plan Discharge Clinical Impression: Fall Patient Disposition: Home, Self-Care Instructions: Fall Prevention (ED) Additional Instructions: No significant injuries noticed Your CT scan and x-rays are normal Prescriptions: No Action (DME) Semi electric hospital bed with mattress See Rx Instructions .Route .MEDSUPPLY Qty: 1 0RF Rx Instructions: As directed hydroxyzine HCl 50 mg tablet 50 mg PO BID Qty: 180 1RF acetaminophen 325 mg Tablet 650 mg PO Q6H PRN (Reason: Pain, Mild 1-3,Fever,Headache) 30 Days Qty: 240 0RF aspirin 325 mg Tablet 325 mg PO BID 42 Days Qty: 84 0RF docusate sodium 100 mg Capsule 100 mg PO BID 14 Days Qty: 28 0RF oxycodone 5 mg Tablet 5 mg PO Q4H PRN (Reason: Pain, Moderate(Pain Scale 4-6)) 7 Days Qty: 42 0RF Rx Instructions: Partial Fill upon patient request. Print Language: Portuguese
[2024-11-20 02:53] LABS: Alanine Aminotransferase 55 U/L (0-40); Albumin Level 3.4 g/dL (3.5-5.0); Alkaline Phosphatase 112 U/L (39-117); Anion Gap 13 (12-20); Aspartate Amino Transferase 88 U/L (5-37); Bilirubin Total 0.8 mg/dL (0.0-1.0); Blood Urea Nitrogen 19 mg/dL (9-16); Calcium 8.3 mg/dL (8.4-10.2); Carbon Dioxide 23 mmol/L (22-29); Chloride 108 mmol/L (96-108); Creatinine Clr Calc Pharmacy 68.6; Estimated Glomerular Filt Rate > 60; Glucose Random 156 mg/dL (60-115); Potassium 3.3 mmol/L (3.3-5.1); Sodium 141 mmol/L (135-145); Total Protein 5.8 g/dL (6.5-8.0)
--- NOTE | 2024-11-20 02:56 | PC.NURSE ---
pt patricia from [facility], a&ox2 (at baseline), had unwitnessed fall when walking to the bathroom, unknown loc and headstrike. pt states he tripped and fell and denies head strike but this is unknown. pt denies any pain. on ems arrival, pt was 70% on ra and placed on a non rebreather. on arrival to ed pt 100% on roomair. 20g in left forearm by ems with 500ml ns. [facility] staff at bedside.
[2024-11-20 03:00] LABS: Troponin-I High Sensitivity 3.6 ng/L (<3.5-35.0)
[2024-11-20 06:40] VITALS: BP 95/50; PULSE 107; RESP 16; TEMP 36.8; O2SAT 97
[2024-11-20 07:19] VITALS: BP 91/51; PULSE 98; RESP 19; TEMP 36.8; O2SAT 96
--- NOTE | 2024-11-20 07:36 | PC.NURSE ---
report given to WILFREDO Srivastava at this time. pt transferring home.
[2024-11-20 07:37] VITALS: BP 91/51; PULSE 98; RESP 19; TEMP 36.8; O2SAT 96
== END 2024-11-20 07:37 | disposition home or self-care (01) ==
PROVIDERS: Emergency Provider Internal Medicine; PCP Internal Medicine
DX: I95.9 Hypotension, unspecified (principal); M54.50 Low back pain, unspecified; G83.9 Paralytic syndrome, unspecified; M25.552 Pain in left hip
CPT/HCPCS: 36415; 70450; 72125; 72170; 80053; 84484; 85025; 93005; 99285

== ENCOUNTER → 2024-11-20 02:27 | Outpatient (BNV) | payer OTHER, SELFPAY | PROVIDERS: Emergency Provider Internal Medicine; PCP Internal Medicine; Visit Provider Internal Medicine Cardiovascular Disease | DX: R00.0 Tachycardia, unspecified (principal) | CPT/HCPCS: 93010 ==

== ENCOUNTER → 2024-11-20 02:49 | Outpatient (BNV) | payer OTHER, SELFPAY | PROVIDERS: Emergency Provider Internal Medicine; PCP Internal Medicine; Visit Provider Radiology Diagnostic Radiology | DX: M54.2 Cervicalgia (principal); R51.9 Headache, unspecified; R10.2 Pelvic and perineal pain; W19.XXXA Unspecified fall, initial encounter | CPT/HCPCS: 70450; 72125; 72170 ==

== ENCOUNTER 2024-11-21 10:19 | Outpatient (AMB) | payer OTHER, SELFPAY ==
[2024-11-21 10:21] VITALS: BP 92/58; PULSE 113; O2SAT 97
--- NOTE | 2024-11-21 10:21 | A.OFFPC_ITS ---
Vital Signs 11/21/24 10:21 Height 5 ft 6 in BMI Reason not done Patient refused/unable BP 92/58 L Blood Pressure Location Lt brachial Position Sitting Pulse 113 H Pulse Source Pulse Oximeter Pulse Oximetry (%) 97 Oxygen Delivery Method Room Air Intake Visit Reasons: F/U Appointment Call Box Wirer Required: No Accompanied by: Sister Allergies celecoxib Allergy (Verified 11/21/24 10:44) Hives Medication List - Last Reconciled 11/21/24 by Jessica Dill MD acetaminophen 650 mg (2 x 325 mg) PO Q6H PRN 30 days aspirin 325 mg PO BID 42 days docusate sodium 100 mg PO BID 14 days hydroxyzine HCl 50 mg PO BID oxycodone 5 mg PO Q4H PRN 7 days [Semi electric hospital bed with mattress As directed] Tobacco use date assessed: 11/21/24 Dental Screening Dental Screen Date: 11/21/24 Did you have a dental visit in the last 12 months?: Yes Did you have a dental problem in the last 6 months where you did not have access to dental care?: No Was dental information given to patient?: Patient has dentist HPI HPI Comments History of Present Illness Details The patient is a 49-year-old male presenting with a history of falls, head injury, and persistent hypotension. A recent incident involved a fall in the bathroom due to balance loss, resulting in trauma to the head. Hospital assessments included head and neck CTs along with hip X-rays, which confirmed the surgical repair of a previous left hip fracture without new fractures. He has cerebral palsy and moves usually with a walker and has no range of motion in lower limbs. Had a recent left hip fracture which was repaired in August. He also has developed left upper leg redness, swelling, warmth and tenderness most likely due to cellulitis and an antibiotic will be sent. The patient experiences dizziness likely related to low blood pressure and reports a convulsive-like episode despite normal subsequent neurologic imaging. He has a history of anemia, leukopenia, and uncertain etiology liver enzyme elevation. He reacted to Celebrex with suspected cellulitis for which further management is planned. [facility] Medical History (Updated 11/21/24 @ 13:14 by Jessica Dill MD) Cerebral palsy Family history of diabetes mellitus Surgical History Recent surgical procedure on lower extremity Family History Father Diabetes Hypertension Mother Hypertension Diabetes Social History Household Members: Family Housing: House Do you presently have visiting nurse or other home services: No Alcohol intake: never Patient Tobacco Use Status: Never used Tobacco e-Cigarette/Vaping Use: Never Used Second Hand Smoke Exposure: No service: No Current occupational status: disabled Cognitive needs: Yes Hearing needs: No Vision needs: No Questionnaire PHQ-9 Over the last 2 weeks, how often have you been bothered by any of the following problems? 1. Little interest or pleasure in doing things: not at all 2. Feeling down, depressed, or hopeless: not at all 3. Trouble falling or staying asleep, or sleeping too much: not at all 4. Feeling tired or having little energy: not at all 5. Poor appetite or overeating: not at all 6. Feeling bad about yourself - or that you are a failure or have let yourself or your family down: not at all 7. Trouble concentrating on things, such as reading the newspaper or watching television: not at all 8. Moving or speaking so slowly that other people could have noticed. Or the opposite - being so fidgety or restless that you have been moving around a lot more than usual: not at all 9. Thoughts that you would be better off or of hurting yourself in some way: not at all Total score: 0 Depression Screening Interpretation: Negative Depression Screening Done: Yes 13223 - PHQ-9 Billing: Yes Source: Developed by Drs. Loc Mcmahon, More Rayo, Sree Andrews and colleagues, with an educational priya from [employer]. Thrive Questionnaire Date Thrive assessed: 11/21/24 I am a: Patient What is your living situation today?: I have a steady place to live Within the past 12 months, did the food you bought not last and you didn't have the money to get more?: I choose not to answer this question Within the past 12 months, did you worry whether your food would run out before you got money to buy more?: I choose not to answer this question Do you have trouble paying for medicines?: No Do you have trouble getting transportation to medical appointments?: No Do you have trouble paying your heating and electricity bill?: No Do you have trouble taking care of your child, family member or friend?: I ch oose not to answer this question Do you have trouble with day-to-day activities such as bathing, preparing meals, shopping, managing finances, etc.?: No Are you currently unemployed and looking for a job?: I choose not to answer this question Are you interested in more education?: I choose not to answer this question Please select the resources that you would like help with: None Currently or been in a relationship where the following occur: I choose not to answer THRIVE Score: 0 AUDIT C Alcohol Use Questionnaire (AUDIT-C) 1. How often do you have a drink containing alcohol?: Never 3. How often do you have six or more drinks on one occasion?: Never Total Score: 0 Score Reviewed/Action Taken: No DIANA-7 AMB Questionnaire DIANA-7 Date DIANA - 7 assessed: 11/21/24 Feeling nervous, anxious, or on edge: 0 = Not at all Not being able to stop or control worryin = Not at all Worrying too much about different things: 0 = Not at all Trouble relaxin = Not at all Being so restless that it is hard to sit still: 0 = Not at all Becoming easily annoyed or irritable: 0 = Not at all Feeling afraid as if something awful might happen: 0 = Not at all Total DIANA-7 score (0-4 normal; 5-9 mild; 10-14 moderate; 15-21 severe): 0 Source: Developed by Drs. Loc Mcmahon, More Rayo, Sree Andrews and colleagues, with an educational priya from [employer]. DIANA-7 Assessment Billing DIANA-7 Assessment Tool: DIANA-7 Assessment 00442 Review of Systems Const All systems reviewed & are unremarkable except as noted in HPI and below Card Denies chest pain at rest, Denies chest pain with activity, Denies edema, Denies irregular heart rhythm, Denies claudication, Denies dyspnea, Denies dyspnea on exertion, Denies orthopnea, Denies paroxysmal nocturnal dyspnea and Denies slow heart rate Resp Denies cough, Denies dyspnea and Denies dyspnea on exertion GI Denies abdominal pain, Denies change in bowel habits, Denies excessive flatus, Denies nausea and Denies vomiting Denies urinary hesitancy, Denies urinary incontinence and Denies urinary urgency Musc Denies atrophy, Denies deformity and Denies limited range of motion Skin/Breast Denies bleeding lesions, Denies changing lesions and Denies rash Physical exam (Primary Care) Vital Signs: Last Vital Signs Pulse 113 H 11/21/24 10:21 BP 92/58 L 11/21/24 10:21 Pulse Ox 97 11/21/24 10:21 Oxygen Delivery Method Room Air 11/21/24 10:21 Tobacco/Smoking Status: Tobacco use Status Tobacco use date assessed 11/21/24 11/21/24 10:27 Patient Tobacco Use Status Never used Tobacco 11/21/24 10:27 e-Cigarette/Vaping Use Never Used 11/21/24 10:27 PHQ-9: PHQ-9 Score PHQ-9: Total score 0 11/21/24 10:49 Depression Screening Interpretation: Negative Thrive Assessment: Date of Thrive Assessment Date Thrive assessed 11/21/24 11/21/24 10:27 Currently or been in a relationship where the following occur: I choose not to answer Const Limitations: wheelchair Resp Effort & Inspection: normal respiratory effort Auscultation: clear to auscultation bilaterally Cardio Jugular venous distension: no JVD Rate: regular rate Rhythm: regular rhythm Heart sounds: S1 normal heart sound present and S2 normal heart sound present Coding Level of Care Code Est Pt Level 4 (14207) Complex EM visit Add On G2211 Diagnoses Hospital discharge follow-up Z09 Cellulitis L03.90 Idiopathic hypotension I95.0 Bicytopenia D75.89 Transaminitis R74.01 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 Additional Codes DIANA-7 Assessment Billing - DIANA-7 Assessment Tool: DIANA-7 Assessment 69933 ([id number]) PHQ-9 - 39663 - PHQ-9 Billing: Yes ([id number]) Time Spent (min) 26 Assessment & Plan Assessment & Plan (1) Hospital discharge follow-up: Code(s): Z09 - Encounter for follow-up examination after completed treatment for conditions other than malignant neoplasm Category: Medical (2) Cellulitis: Code(s): L03.90 - Cellulitis, unspecified Category: Medical (3) Idiopathic hypotension: Code(s): I95.0 - Idiopathic hypotension Category: Medical (4) Bicytopenia: Code(s): D75.89 - Other specified diseases of blood and blood-forming organs Category: Medical (5) Transaminitis: Code(s): R74.01 - Elevation of levels of liver transaminase levels Category: Medical (6) Cerebral palsy: Code(s): G80.9 - Cerebral palsy, unspecified Category: Medical Qualifiers: Cerebral palsy type: spastic diplegic Qualified Code(s): G80.1 - Spastic diplegic cerebral palsy Plan The management of this patient includes refining the control of hypotension by prescribing medication for blood pressure, accompanied by regular monitoring and follow-up. Due to the abnormal laboratory findings, I am coordinating referrals to hematology, oncology, and an ultrasound for comprehensive evaluation of anemia, leukopenia, and liver enzymes. Neurology evaluation is warranted to investigate possible seizure activity origins. Antibiotics will be administered to treat suspected cellulitis stemming from an allergic reaction to Celebrex. Pain management will include a cautious low-dose oxycodone regimen. Follow-up with appropriate specialists and consistent monitoring of cardiovascular and neurological symptoms are planned. Patient was informed and verbally consented to the use of an ambient scribe for clinic note documentation during this visit. During our discussion, I explained the potential causes behind the patient's current symptoms and evaluated treatment options. For hypotension, medication adjustments were addressed to prevent dizziness. I highlighted the concerns of anemia and leukopenia, indicating that hematology and oncology consultations, along with a liver ultrasound, will aid in identifying underlying issues. The potential seizure episode led to a recommendation for a neurological evaluation. Furthermore, I discussed the cellulitis treatment plan involving antibiotics and reassured the importance of scheduled follow-ups, including routine blood pre ssure monitoring. The necessity of managing post-surgical pain with oxycodone was also consented to, underlining careful use. Required specialists and anticipated care timelines were articulated clearly. Orders: Orders US abdomen burns w elastography Today R74.01 - Elevation of levels of liver transaminase levels Liver Panel Today R74.01 - Elevation of levels of liver transaminase levels IRON PROFILE Today D64.9 - Anemia, unspecified Hepatitis A,B,C Profile Today R74.01 - Elevation of levels of liver transaminase levels Complete Blood Count Auto Diff Today D64.9 - Anemia, unspecified Vitamin B12 and Folate Today E53.8 - Deficiency of other specified B group vitamins Referrals Cardiology Referral I95.0 - Idiopathic hypotension Hematology & Oncology Referral D75.89 - Other specified diseases of blood and blood-forming organs Medications: New midodrine do not give last dose of day after 6PM or within 4 hrs of bedtime 2.5 mg PO TID 30 days 90 tabs 1RF I95.0 - Idiopathic hypotension sulfamethoxazole-trimethoprim 800-160 mg (Bactrim DS) 1 tab PO BID 10 days 20 tabs 0RF L03.90 - Cellulitis, unspecified Refilled oxycodone Partial Fill upon patient request. 5 mg PO Q4H 7 days PRN 42 tabs 0RF Pain, Moderate(Pain Scale 4-6) I95.0 - Idiopathic hypotension Patient Instructions: - Monitor blood pressure with regular checks. - Take prescribed medications as indicated. - Schedule upcoming hematology, oncology, and neurology appointments. - Return for follow-up to check progress and medication efficacy. - For cellulitis, complete any antibiotic course as prescribed. - Report any new or worsening symptoms urgently.
== END 2024-11-21 10:54 | disposition home or self-care (01) ==
LOC: HO.HMCH 10:20
PROVIDERS: Visit Provider Internal Medicine
DX: I95.0 Idiopathic hypotension (principal); Z09 Encounter for follow-up examination after completed treatment for conditions other than malignant neoplasm; G80.1 Spastic diplegic cerebral palsy; L03.90 Cellulitis, unspecified; D75.89 Other specified diseases of blood and blood-forming organs; R74.01 Elevation of levels of liver transaminase levels

== ENCOUNTER → 2024-11-21 10:19 | Outpatient (BNVA) | payer OTHER, SELFPAY | PROVIDERS: Visit Provider Internal Medicine | DX: G80.1 Spastic diplegic cerebral palsy (principal); R42 Dizziness and giddiness; L03.90 Cellulitis, unspecified; I95.0 Idiopathic hypotension; D75.89 Other specified diseases of blood and blood-forming organs; R74.01 Elevation of levels of liver transaminase levels; D64.9 Anemia, unspecified; E53.8 Deficiency of other specified B group vitamins; Z91.81 History of falling | CPT/HCPCS: 96127; 99212 ==

== ENCOUNTER 2024-11-23 09:28 | Inpatient (IN) | payer OTHER, SELFPAY ==
--- NOTE | 2024-11-23 | ECG_ITS ---
Test Reason : Hypotension, evidence of vascular congestion Blood Pressure : */* mmHG Vent. Rate : 94 BPM Atrial Rate : 94 BPM P-R Int : 132 ms QRS Dur : 80 ms QT Int : 354 ms P-R-T Axes : 59 22 24 degrees QTcB Int : 442 ms Normal sinus rhythm Possible Left atrial enlargement Borderline ECG When compared with ECG of 20-Nov-2024 02:27, Nonspecific T wave abnormality now evident in Anterior leads Referred By: Bryanna Bernstein Electronically Signed By: ARTEMIO LEONARDO MD
--- NOTE | ~2024-11-23 | CT_ITS ---
EXAMINATION: CT ABDOMEN AND PELVIS WITH CONTRAST CLINICAL INFORMATION: Leukocytosis, right scrotal swelling with erythema COMPARISON: Ultrasound performed earlier on the same day TECHNIQUE: Multidetector volumetric images were obtained from the superior aspect of the liver through the pubic symphysis following administration 85 mL of Omnipaque 350 intravenous contrast. Sagittal and coronal reformatted images were obtained on the technologist's workstation. Oral contrast: No This CT examination was performed using dose optimization techniques as appropriate, variously including the following: *Automated exposure control *Adjustment of mA and/or kV according to patient size (this includes techniques or standardized protocols for targeted exams where dose is matched to indication/reason for exam; i.e. extremities or head) *Use of iterative reconstruction technique DLP: 340 mGY*cm FINDINGS: LUNG BASES: Pulmonary vascularity is prominent LIVER, GALLBLADDER, AND BILIARY TREE: The liver is normal in size, shape, and attenuation. No focal hepatic lesion or biliary ductal dilatation is present. The gallbladder is unremarkable with no evidence of radiopaque gallstones, gallbladder wall thickening, or obvious pericholecystic inflammatory changes. PANCREAS: Unremarkable. SPLEEN: Unremarkable. ADRENAL GLANDS: Unremarkable. KIDNEYS AND URETERS: 11 mm fluid attenuating circumscribed lesion in the mid right kidney is consistent with a benign simple renal cyst. BLADDER: Unremarkable. GASTROINTESTINAL TRACT: There are distended fluid-filled loops of small bowel in the right lower anterior abdomen without grossly dilated small bowel lumen. ABDOMINAL WALL: No significant hernia is appreciated. LYMPH NODES: Normal. VASCULAR: There is swirling of the mesentery vasculature right of midline. PELVIC VISCERA: Unremarkable. OSSEOUS STRUCTURES Intramedullary nail and screw fix a left femoral fracture. Otherwise unremarkable. CT/CT abdomen pelvis w IV con IMPRESSION: There is swirling of the mesentery and vessels (whirlpool sign) leading to bowel in the right lower quadrant that is fluid-filled. Small bowel in the left abdomen appears more decompressed than in the right raising question of a low-grade obstruction. Pulmonary vascular congestion. Fleischner guidelines were followed. Electronically signed by: Karlos Cruz MD 11/23/2024 03:05 PM EDT
--- NOTE | ~2024-11-23 | US_ITS ---
EXAMINATION: US SCROTUM WITH DOPPLER COMPLETE HISTORY: R testicular erythema/swelling. COMPARISON: There are no prior studies available for comparison. FINDINGS: Real-time grayscale ultrasound imaging of the scrotum was performed. Color and spectral Doppler analysis was also performed. RIGHT TESTICLE: The right testis measures 4.2 x 2.5 x 3.2 cm and demonstrates normal homogeneous echotexture. No masses are seen. The right testis demonstrates normal arterial and venous color Doppler and spectral waveforms. RIGHT EPIDIDYMIS: Normal in size, shape, and vascularity. LEFT TESTICLE: The left testis measures 3.9 x 2.0 x 2.8 cm and demonstrates normal homogeneous echotexture. No masses are seen. The left testis demonstrates normal arterial and venous color Doppler and spectral waveforms. LEFT EPIDIDYMIS: Normal in size, shape, and vascularity. VARICOCELE: None. HYDROCELE: No significant hydrocele is seen. OTHER COMMENTS: None. US/US scrotum doppler IMPRESSION: Unremarkable scrotal ultrasound. Electronically signed by: Loc Whaley MD 11/23/2024 11:09 AM EDT
--- NOTE | ~2024-11-23 | CT_ITS ---
CLINICAL HISTORY: psbo- please long po drink 4 hrs, start 8am wednesday CT abdomen and pelvis with and without contrast Comparison: CT/SR - CT ABDOMEN PELVIS W IV CON - 11/23/24 14:11 EDT Findings: No consolidation at the lung bases. Unremarkable gallbladder and bladder. Cyst in the right kidney. Left renal parapelvic cyst. The other solid organs are unremarkable. Oral contrast reaches the rectum. There are few loops of small bowel which are mildly dilated, measuring up to 2.9 cm. There is no discrete transition point. No definitive bowel wall thickening. No pneumatosis or portal venous gas. A normal appendix is identified. No aneurysm. Mild calcified atherosclerotic disease. No lymphadenopathy. No ascites. No acute osseous abnormality. Status post fixation of the left proximal femur. Impression: No high-grade small bowel obstruction. No discrete transition point to indicate partial obstruction.Small bowel ileus could be considered. This document has been electronically signed by: Chelsi Tovar MD on 11/26/2024 14:03:29
--- NOTE | ~2024-11-23 | XR_ITS ---
EXAMINATION: XR CHEST CLINICAL INFORMATION: shortness of breath COMPARISON: August 26, 2024. TECHNIQUE: 2 views of the chest were obtained. FINDINGS: No hyperinflation. No consolidation, pleural effusion or pneumothorax. Cardiomediastinal silhouette size is normal. S-shaped curvature of the mid thoracic spine. Focal considerations overlapping the humeral heads bilaterally. XR/XR chest 2V IMPRESSION: No acute airspace disease Mild dextroconvex scoliosis, thoracic spine. Electronically signed by: Arturo Perez MD 11/23/2024 12:04 PM EDT
--- NOTE | ~2024-11-23 | US_ITS ---
EXAMINATION: US SCROTUM WITH DOPPLER COMPLETE HISTORY: R testicular erythema/swelling. COMPARISON: There are no prior studies available for comparison. FINDINGS: Real-time grayscale ultrasound imaging of the scrotum was performed. Color and spectral Doppler analysis was also performed. RIGHT TESTICLE: The right testis measures 4.2 x 2.5 x 3.2 cm and demonstrates normal homogeneous echotexture. No masses are seen. The right testis demonstrates normal arterial and venous color Doppler and spectral waveforms. RIGHT EPIDIDYMIS: Normal in size, shape, and vascularity. LEFT TESTICLE: The left testis measures 3.9 x 2.0 x 2.8 cm and demonstrates normal homogeneous echotexture. No masses are seen. The left testis demonstrates normal arterial and venous color Doppler and spectral waveforms. LEFT EPIDIDYMIS: Normal in size, shape, and vascularity. VARICOCELE: None. HYDROCELE: No significant hydrocele is seen. OTHER COMMENTS: None. US/US scrotum IMPRESSION: Unremarkable scrotal ultrasound. Electronically signed by: Loc Whaley MD 11/23/2024 11:09 AM EDT
[2024-11-23 09:36] VITALS: BP 97/63; PULSE 97; RESP 16; TEMP 36.8; O2SAT 99; BMI 20.3
--- NOTE | 2024-11-23 09:37 | ED_ITS ---
HPI - General Adult General Chief complaint: General Medical Stated complaint: allergies Time Seen by Provider: 11/23/24 09:33 Source: family (sister ) and other (gladys (mom)) Mode of arrival: ambulatory Limitations: other History of Present Illness ED Provider: ESPERANZA LIN PA-C HPI narrative: 49 year old nonverbal male with pmhx significant for cerebral palsy and idiopathic hypotension presents to the ED today with his guardian (mother) for evaluation of rash x24 hours. Patint was evaluated by his PCP for rash noted to right inguinal region. He was placed on bactrim. He has taken one dose of this (today). He also reports itchy rash to torso, neck and upper extremities which began yesterday after taking Oxycodone. His mother reports hx of similar reaction after taking Oxycodone in the past. Denies sob or difficulty breathing. No throat closing sensation. His mother also reports that patient has been complaining of nausea with small episodes of vomiting and associated abdominal pain, primarily to left upper quadrant. He has not had a BM in 2 days however is passing flatus. No fevers or urinary symptoms. No testicluar pain. Per mother, patient had a mechanical fall early this year resulting in left hip fracture. He is s/p left hip IMN on 07/30/24. Related Data Previous Rx's ?Medication ?Instructions ?Recorded [employer] [facility] bed with #1 ea 09/12/24 mattress midodrine 2.5 mg tablet 2.5 mg PO TID 30 days #90 ta bs 11/21/24 sulfamethoxazole 800 1 tab PO BID 10 days #20 tab s 11/21/24 mg-trimethoprim 160 mg tablet (Bactrim DS) valacyclovir 1 gram tablet 1,000 mg PO Q8H 8 days #24 tabs 11/27/24 Allergies Allergy/AdvReac Type Severity Reaction Status Date / Time celecoxib Allergy Hives Verified 12/07/24 11:31 oxycodone AdvReac Intermediate Rash Verified 12/07/24 11:31 Review of Systems 2 Review of Systems: Yes all other systems are reviewed and are negative PMFSH Past Medical History Attestation statement: The following information was validated with the patient. Source: old records reviewed, obtained from family and nursing notes reviewed Medical History (Updated 11/28/24 @ 00:00 by Background Daemon) SBO (small bowel obstruction) Idiopathic hypotension Transaminitis Underweight Closed fracture of left hip Cerebral palsy Family history of diabetes mellitus Surgical History History of left hip replacement Recent surgical procedure on lower extremity Family History Family History Father Diabetes Hypertension Mother Hypertension Diabetes Social History Social History Household Members: Family Housing: House Do you presently have visiting nurse or other home services: Yes Alcohol intake: never Patient Tobacco Use Status: Never used Tobacco e-Cigarette/Vaping Use: Never Used Second Hand Smoke Exposure: No service: No Current occupational status: disabled Cognitive needs: Yes Hearing needs: No Vision needs: No Physical Exam ED Vital Signs: Vital Signs - 24 hr 11/23/24 09:36 11/23/24 12:26 11/23/24 14:35 Temperature 98.3 F 98.1 F 98.1 F Pulse Rate 97 95 95 Respiratory Rate 16 16 18 Blood Pressure 97/63 107/69 138/82 Pulse Oximetry 99 99 97 Oxygen Delivery Method Room Air Room Air Room Air BMI result Body Mass Index 20.3 vital signs stable, afebrile General: in NAD Head: Normocephalic, atraumatic. EENT: Hearing is intact b/l. Conjunctiva clear. Sclera is anicteric. PERRLA. EOM intact. Moist mucous membranes.? Cardiac: Chest wall symmetric. RRR Lungs: Normal respiratory effort without accessory muscle use. CTA bilaterally Abdomen: Soft, nondistended, tender to palpation of the left upper quadrant. Negative Leone's sign. Negative psoas sign. No rebound tenderness or guarding. No rigidity. Back: no midline spinous or paraspinal tenderness. No step off deformity. Ext: Upper and lower extremities atraumatic, without tenderness, deformity, swelling or erythema Psych: Appropriate mood and affect. Responds appropriately to questions. Course Course Course Narrative: 1427 -- CBC showing leukocytosis to 11.8 with left shift to 81.6. this is quite increased from white count of 2.5 just three days ago. he has a normocytic anemia when compared to priors, h&h stable. elevated ESR to 36 and CRP to 10.92. Chemistry without acute electrolyte abnormality requiring intervention. No AUTUMN. Random glucose 84. Urine without infection. Negative COVID, flu, RSV. Chest x-ray without infiltrate or consolidation to suggest pneumonia. Scrotal ultrasound unremarkable. No evidence of torsion, hydrocele, epididymitis or orchitis. CT abdomen/pelvis showing swirling of the mesentery and vessels leading to bowel in the right lower quadrant, fluid-filled. Small bowel in the left abdomen appears more decompressed then in the right raising question of low-grade obstruction. There is also associated pulmonary vascular congestion. > concern for generalized cellulitis of the groin region. he is currently on bactrim for this, has taken a total of 1 dose (this morning). > on re-evaluation, rash to torso/ upper extremities has improved with Benadryl, Solu-Medrol, Pepcid. Concern for possible allergic reaction to his oxycodone and as he has had similar reactions to oxycodone in the past. advised to discontinue this. Exam is not concerning for SJS or TEN > I did reach out to on-call general surgeon Dr. Ramirez who has evaluated patient at bedside. He is recommending admission to surgical service. NG tube not warranted at this time. patient/ mom are agreeable. bed request placed. Medications Administered Discontinued Medications Generic Name Dose Route Start Last Admin Trade Name Freq PRN Reason Stop Dose Admin Bacitracin 1 appl 11/23/24 22:00 11/27/24 09:46 Bacitracin Oint 14 Gm Tube TOPICAL 1 appl BID RENE Administration Protocol Diatrizoate Meglum/Diatrizoate Sod 30 ml 11/26/24 12:13 11/26/24 12:13 Diatrizoate Meglumine, Sodium 30 Ml Solution PO 11/26/24 12:14 30 ml ONCE ONE Administration Diphenhydramine HCl 50 mg 11/23/24 10:02 11/23/24 10:20 Diphenhydramine Hcl 50 Mg/Ml Vial IVPUSH 11/23/24 10:03 50 mg ONCE ONE Administration Doxycycline Monohydrate 100 mg 11/24/24 12:15 11/27/24 11:41 Doxycycline Monohydrate 100 Mg Capsule PO 100 mg Q12H RENE Administration Famotidine 20 mg 11/23/24 10:02 11/23/24 10:20 Famotidine/Pf 20 Mg/2 Ml Vial IVPUSH 11/23/24 10:03 20 mg ONCE ONE Administration Dextrose/Lactated Ringer's 1,000 mls @ 100 mls/hr 11/23/24 17:56 11/24/24 17:41 D5lr IVCONT Not Given .Q10H RENE Iohexol 100 ml 11/23/24 14:33 11/23/24 14:33 Iohexol 350 Mg/Ml 100 Ml Infus..Btl IV 11/23/24 14:34 85 ml ONCE ONE Administration Iohexol 100 ml 11/26/24 12:12 11/26/24 12:13 Iohexol 350 Mg/Ml 100 Ml Infus..Btl IV 11/26/24 12:13 85 ml ONCE ONE Administration Methylprednisolone Sodium Succinate 125 mg 11/23/24 10:30 11/23/24 10:33 Methylprednisolone Sod Succ 125 Mg Vial IVPUSH 11/23/24 10:31 125 mg ONCE ONE Administration Midodrine 2.5 mg 11/24/24 15:00 11/24/24 21:38 Midodrine Hcl 2.5 Mg Tablet PO Not Given TID RENE Midodrine 2.5 mg 11/25/24 08:00 11/27/24 11:41 Midodrine Hcl 2.5 Mg Tablet PO 2.5 mg TIDWM RENE Administration Sodium Chloride 3 ml 11/24/24 00:00 11/27/24 09:40 0.9 % Sodium Chloride Flush 3 Ml Syringe IVFLUSH Not Given QSHIFT RENE Valacyclovir HCl 1,000 mg 11/25/24 12:45 11/27/24 11:45 Valacyclovir Hcl 1,000 Mg Tablet PO 12/05/24 12:44 1,000 mg Q8H RENE Administration Medical Decision Making Medical Decision Making MDM Narrative: 49 year old nonverbal male with pmhx significant for cerebral palsy and idiopathic hypotension presents to the ED today with his guardian (mother) for evaluation of rash x24 hours. Plan for labs, ultrasound +/- CT a/p, UA Differential Diagnosis Differential Diagnoses: The differential diagnosis associated with the presentation includes as above. Admission/Observation Consideration of admission/observation: Escalation of care including admission/observation considered patient admitted to surgical service for further management of partial small- bowel obstruction Consult Healthcare Provider Management of the patient was discussed with: [employer] Clerk General surgery - dr. ramirez Lab Data MDM Lab Attestation statement: I reviewed the patient's lab results. as above. 11/27/24 06:00 11/27/24 06:00 Labs: Lab Results 11/23/24 11/23/24 11/23/24 Range/Units 09:51 11:15 15:43 WBC 11.8 H (4.8-10.8) X10*3/uL RBC 4.59 L (4.60-5.80) X10*6/uL Hgb 13.0 L (14.0-18.0) g/dl Hct 40.7 L (42.0-52.0) % MCV 88.7 (80.0-98.0) fL MCH 28.3 (27.0-33.0) pg MCHC 31.9 (31.0-36.0) g/dl RDW 12.8 (11.0-16.0) % Plt Count 152 L D (160-400) X10*3/uL MPV 10.6 (9.4-12.4) fL Immature Gran % (Auto) 0.3 (0.0-0.4) % Neut % (Auto) 81.6 H (45-73) % Lymph % (Auto) 10.9 L (20-40) % [place] % (Auto) 5.3 (2-11) % Eos % (Auto) 1.0 (0-4) % Baso % (Auto) 0.9 (0-2) % Lymph # (Auto) 1.3 (1.2-4.9) X10*3/uL [place] # (Auto) 0.6 (0.1-1.2) X10*3/uL Eos # (Auto) 0.1 (0.0-0.4) X10*3/uL Baso # (Auto) 0.1 (0.0-0.2) X10*3/uL Abs Immat Gran (auto) 0.04 H (0.00-0.03) X10*3/uL Absolute Neuts (auto) 9.6 H (2.0-8.3) x10*3/uL Absolute Nucleated RBC 0.000 (0.0-0.012) X10*3/uL Nucleated RBC % (auto) 0.0 (0.0-0.2) /100WBC ESR 36 H (0-15) MM/HR Sodium 140 (135-145) mmol/L Potassium 3.7 (3.3-5.1) mmol/L Chloride 106 (96-108) mmol/L Carbon Dioxide 27 (22-29) mmol/L Anion Gap 11 L (12-20) BUN 14 (9-16) mg/dL Creatinine 0.60 (0.5-1.4) mg/dL Estim Creat Clear Calc 107.3 Estimated GFR > 60 Random Glucose 84 (60-115) mg/dL Calcium 8.9 D (8.4-10.2) mg/dL C-Reactive Protein 10.92 H (< or = 0.50) mg/dL Urine Color Yellow Urine Appearance Clear Urine pH 6.5 (5.0-9.0) Ur Specific [place] >= 1.030 H (1.005-1.025) Urine Protein Negative (Neg-Trace) mg/dL Urine Glucose (UA) Negative (Negative) mg/dL Urine Ketones 15 (Negative) mg/dL Urine Blood Negative (Negative) Urine Nitrite Negative (Negative) Ur Leukocyte Esterase Small (1+) H (Negative) Urine RBC 0-2 (0-2) /HPF Urine WBC 0-5 (0-5) /HPF Ur Squamous Epith Cells 0-2 (0-2) /HPF Urine Bacteria None Seen (None Seen) Hyaline Casts 0-2 (0-2) /LPF Influenza Type A (PCR) NEGATIVE (Negative) Influenza Type B (PCR) NEGATIVE (Negative) RSV RNA Qual (PCR) NEGATIVE (Negative) SARS-CoV-2 RNA (RT-PCR) NEGATIVE (Negative) Independent Interpretation I performed an independent interpretation of an: Plain X-Ray and CT Scan Interpretation: Chest x-ray without infiltrate or consolidation to suggest pneumonia CT a/p showing partial small bowel obstruction Radiology Impression Discussion of test interpretation with radiology: I have reviewed the radiologist's reading. Radiologist Impression: Date of Service: 11/23/24 Procedure(s): XR chest 2V Accession Number(s): [id number] cc: Esperanza Lin; Jessica Holloway MD~ EXAMINATION: XR CHEST CLINICAL INFORMATION: shortness of breath COMPARISON: August 26, 2024. TECHNIQUE: 2 views of the chest were obtained. FINDINGS: No hyperinflation. No consolidation, pleural effusion or pneumothorax. Cardiomediastinal silhouette size is normal. S-shaped curvature of the mid thoracic spine. Focal considerations overlapping the humeral heads bilaterally. XR/XR chest 2V IMPRESSION: No acute airspace disease Mild dextroconvex scoliosis, thoracic spine. Electronically signed by: Arturo Perez MD 11/23/2024 12:04 PM EDT RP Date of Service: 11/23/24 Procedure(s): CT abdomen pelvis w IV con Accession Number(s): [id number] cc: Esperanza Lin; Jessica Holloway MD~ Report Number: [id number]: Total DLP = 340.00 mGy-cm EXAMINATION: CT ABDOMEN AND PELVIS WITH CONTRAST CLINICAL INFORMATION: Leukocytosis, right scrotal swelling with erythema COMPARISON: Ultrasound performed earlier on the same day TECHNIQUE: Multidetector volumetric images were obtained from the superior aspect of the liver through the pubic symphysis following administration 85 mL of Omnipaque 350 intravenous contrast. Sagittal and coronal reformatted images were obtained on the technologist's workstation. Oral contrast: No This CT examination was performed using dose optimization techniques as appropriate, variously including the following: *Automated exposure control *Adjustment of mA and/or kV according to patient size (this includes techniques or standardized protocols for targeted exams where dose is matched to indication/reason for exam; i.e. extremities or head) *Use of iterative reconstruction technique DLP: 340 mGY*cm FINDINGS: LUNG BASES: Pulmonary vascularity is prominent LIVER, GALLBLADDER, AND BILIARY TREE: The liver is normal in size, shape, and attenuation. No focal hepatic lesion or biliary ductal dilatation is present. The gallbladder is unremarkable with no evidence of radiopaque gallstones, gallbladder wall thickening, or obvious pericholecystic inflammatory changes. PANCREAS: Unremarkable. SPLEEN: Unremarkable. ADRENAL GLANDS: Unremarkable. KIDNEYS AND URETERS: 11 mm fluid attenuating circumscribed lesion in the mid right kidney is consistent with a benign simple renal cyst. BLADDER: Unremarkable. GASTROINTESTINAL TRACT: There are distended fluid-filled loops of small bowel in the right lower anterior abdomen without grossly dilated small bowel lumen. ABDOMINAL WALL: No significant hernia is appreciated. LYMPH NODES: Normal. VASCULAR: There is swirling of the mesentery vasculature right of midline. PELVIC VISCERA: Unremarkable. OSSEOUS STRUCTURES Intramedullary nail and screw fix a left femoral fracture. Otherwise unremarkable. CT/CT abdomen pelvis w IV con IMPRESSION: There is swirling of the mesentery and vessels (whirlpool sign) leading to bowel in the right lower quadrant that is fluid-filled. Small bowel in the left abdomen appears more decompressed than in the right raising question of a low-grade obstruction. Pulmonary vascular congestion. Fleischner guidelines were followed. Electronically signed by: Karlos Cruz MD 11/23/2024 03:05 PM EDT Independent Historian Clinical information obtained from an independent historian. History obtained from or confirmed by: Parent (mom) and Other (sister) External Record Review External record reviewed: Inpatient record Prescription Management I considered prescription management with: Pain Medication and Antibiotic Chronic Conditions Patient?s care impacted by: Other (cerebral palsy) Social Determinants Patient?s care significantly limited by Social Determinants of Health including: Other Social Determinant of Health Critical Care Time Critical Care Time Critical Care Time: Yes Total Critical Care Time: 40 Attestation: Critical care time in the amount of 40 minutes has been provided to the patient in terms of direct patient care, frequent reevaluation, consultation with General surgery, review and interpretation of medical data and results, and management of potentially life-threatening conditions. This is all outside of any medical procedures. Discharge Plan Discharge Clinical Impression: SBO (small bowel obstruction) Patient Disposition: Admitted As Inpatient Interventions: Admission Worksheet (ED) Last Done: 11/23/24 17:06 Discharge Date/Time: 11/23/24 17:53
[2024-11-23] MEDS: diphenhydrAMINE HCL 50 MG/ML VIAL IVPUSH (10:20)
[2024-11-23] MEDS: Famotidine/PF 20 MG/2 ML VIAL IVPUSH (10:20)
--- NOTE | 2024-11-23 10:48 | PC.NURSE ---
ultrasound at bedside
[2024-11-23 10:49] LABS: Influenza A PCR NEGATIVE (Negative); Influenza B PCR NEGATIVE (Negative); Resp Syncy Virus RNA Qual PCR NEGATIVE (Negative); SARS COV2 PCR INHOUSE NEGATIVE (Negative)
[2024-11-23 11:21] LABS: MANUAL DIFF FLAG NO
[2024-11-23 11:32] LABS: Basophils Absolute Auto 0.1 X10*3/uL (0.0-0.2); Basophils Percent Auto 0.9 % (0-2); Eosinophils Absolute Auto 0.1 X10*3/uL (0.0-0.4); Hematocrit 40.7 % (42.0-52.0); Imm Gran Abs Auto 0.04 X10*3/uL (0.00-0.03); Imm Gran Pct Auto 0.3 % (0.0-0.4); Lymphocytes Absolute Auto 1.3 X10*3/uL (1.2-4.9); Lymphocytes Percent Auto 10.9 % (20-40); Mean Corpuscular HGB Conc 31.9 g/dl (31.0-36.0); Mean Corpuscular Hemoglobin 28.3 pg (27.0-33.0); Mean Corpuscular Volume 88.7 fL (80.0-98.0); Mean Platelet Volume 10.6 fL (9.4-12.4); Monocytes Absolute Auto 0.6 X10*3/uL (0.1-1.2); Monocytes Percent Auto 5.3 % (2-11); Neutrophils Absolute Auto 9.6 x10*3/uL (2.0-8.3); Neutrophils Percent Auto 81.6 % (45-73); Platelet Count 152 X10*3/uL (160-400); Red Blood Count 4.59 X10*6/uL (4.60-5.80); Red Cell Distribution Width 12.8 % (11.0-16.0); White Blood Count 11.8 X10*3/uL (4.8-10.8)
[2024-11-23 11:38] LABS: Anion Gap 11 (12-20); Blood Urea Nitrogen 14 mg/dL (9-16); C Reactive Protein 10.92 mg/dL (< or = 0.50); Calcium 8.9 mg/dL (8.4-10.2); Carbon Dioxide 27 mmol/L (22-29); Chloride 106 mmol/L (96-108); Creatinine Clr Calc Pharmacy 107.3; Estimated Glomerular Filt Rate > 60; Glucose Random 84 mg/dL (60-115); Potassium 3.7 mmol/L (3.3-5.1); Sodium 140 mmol/L (135-145)
[2024-11-23 12:21] LABS: Erythrocyte Sedimentation Rate 36 MM/HR (0-15)
[2024-11-23 12:26] VITALS: BP 107/69; PULSE 95; RESP 16; TEMP 36.7; O2SAT 99
[2024-11-23] MEDS: iohexoL 350 MG/ML 100 ML INFUS..BTL IV (14:33)
[2024-11-23 14:35] VITALS: BP 138/82; PULSE 95; RESP 18; TEMP 36.7; O2SAT 97
[2024-11-23 15:49] LABS: Appearance Urine Clear; Color Urine Yellow; Glucose Urine UA Negative (Negative); Leukocyte Esterase Urine Small (1+) (Negative); Nitrite Urine Negative (Negative); PH 6.5 (5.0-9.0); Specific Gravity - Urine >= 1.030 (1.005-1.025); UMIC TRIGGER UACC YES; Urine Blood Negative (Negative); Urine Ketones 15 mg/dL (Negative); Urine Protein Negative (Neg-Trace)
[2024-11-23 16:01] LABS: Bacteria Urine None Seen (None Seen); Hyaline Casts Urine 0-2 /LPF (0-2); RBC Urine 0-2 /HPF (0-2); Squamous Epithelial Cell Urine 0-2 /HPF (0-2); UACC Culture Trigger YES; WBC Urine 0-5 /HPF (0-5)
--- NOTE | 2024-11-23 16:32 | PM.HPGS ---
History of Present Illness History of Present Illness Date of Service: 11/23/24 Chief complaint: Partial small-bowel obstruction Narrative: Dipak Goins is a 49 year old male with a history of cerebral palsy and idiopathic hypotension presenting to the ED with complaints of superficial cellulitis of the groin region and a possible allergic reaction to oxycodone. He also had an episode of nausea and vomiting with some mild abdominal pain mainly in the left upper quadrant. He has been passing flatus but has not had a bowel movement in 2 days. Earlier this year he had a fall resulting in a left hip fracture and subsequently underwent a left hip IMN on 07/20/2024. He is noted to have an elevated WBC of 11.[address] abdomen and pelvis which revealed dilated loops of proximal small bowel with a possible whirl sign to indicate AA partial small-bowel obstruction with decompressed distal small bowel. He is being admitted to the surgical service for further management of this partial small-bowel obstruction. Review of Systems Review of Systems: Yes Unobtainable due to mental status PMFSH Past Medical History Medical History Cerebral palsy Family history of diabetes mellitus Family History Family History Father Diabetes Hypertension Mother Hypertension Diabetes Surgical History Surgical History Recent surgical procedure on lower extremity Social History Social History Household Members: Family Housing: House Do you presently have visiting nurse or other home services: No Alcohol intake: never Patient Tobacco Use Status: Never used Tobacco e-Cigarette/Vaping Use: Never Used Second Hand Smoke Exposure: No Advance Directives: No Advance Directives Information Provided: Yes service: No Current occupational status: disabled Cognitive needs: Yes Hearing needs: No Vision needs: No Meds Allergies Allergy/AdvReac Type Severity Reaction Status Date / Time celecoxib Allergy Hives Verified 11/23/24 09:39 Physical Exam Vital Signs: Vital Signs: Last Vital Signs Temp 98.1 F 11/23/24 14:35 Pulse 95 11/23/24 14:35 Resp 18 11/23/24 14:35 BP 138/82 11/23/24 14:35 Pulse Ox 97 11/23/24 14:35 O2 Del Method Room Air 11/23/24 14:35 BMI result Body Mass Index 20.3 Const: General: healthy appearing and comfortable Nutritional Appearance: thin Resp: Effort & Inspection: normal respiratory effort, no audible wheezes, no cough and no respiratory distress GI: Inspection: Yes normal to inspection Palpation (GI): Soft to palpation, Tenderness to palpation present (GI) in the LUQ; Leone's sign negative, obturator sign negative, psoas sign negative and with no rebound tenderness, no guarding, not rigid and No hepatosplenomegaly present Skin: General skin exam: no rashes or lesions noted Extrem: General: Yes no clubbing, cyanosis or edema Results Results Labs: Short CBC 11/23/24 Range/Units 11:15 WBC 11.8 H (4.8-10.8) X10*3/uL Hgb 13.0 L (14.0-18.0) g/dl Hct 40.7 L (42.0-52.0) % Plt Count 152 L D (160-400) X10*3/uL BMP 11/23/24 11:15 Sodium 140 Potassium 3.7 Chloride 106 Carbon Dioxide 27 BUN 14 Creatinine 0.60 Calcium 8.9 D Urine 11/23/24 Range/Units 15:43 Urine Color Yellow Urine Appearance Clear Urine pH 6.5 (5.0-9.0) Ur Specific [place] >= 1.030 H (1.005-1.025) Urine Protein Negative (Neg-Trace) mg/dL Urine Glucose (UA) Negative (Negative) mg/dL Abdomen CT scan report/results: image reviewed CT scan - pelvis: image reviewed Assessment and Plan (1) SBO (small bowel obstruction): Status: Acute Plan 49-year-old male patient with a history of cerebral palsy presenting initially with groin redness found to have abdominal pain, nausea and vomiting. Workup revealed an elevated WBC and CT findings suggestive of a partial small-bowel obstruction. He has had no prior abdominal surgeries but did have a previous IM nailing left hip. Review of the CT reveals minimally dilated stomach and proximal small bowel. We will hold off on nasogastric tube decompression and placed the patient on bowel rest for now along with IV hydration. If there was no improvement in the next 24 hours and oral contrast study such as a CT with oral contrast we will be performed. I reviewed the findings with the patient, his mother and sister and they expressed understanding and agree with the plan. Quality Stroke Does the patient have a stroke diagnosis?: No VTE Prior VTE?: No VTE Risk Level:: Surgical - low VTE Device Contraindication: N/A - Device Ordered VTE Drug Contraindication: Treatment Not Indicated Procedures Date of Service Date of Service: 11/23/24
--- NOTE | 2024-11-23 16:45 | PHA.MEDREC ---
Addendum entered by Shaw Rhodes RPh 11/23/24 17:31: MED REC REVIEWED Original Note: Pharmacy Consult ? Medication Reconciliation Pharmacy has completed the medication reconciliation. Spoke to patients family at bedside to confirm med list. Mother confirmed Midodrine 2.5 mg and Sulfamethoxazole 800 mg -Trimethoprim 160 mg. Patient no longer takes Oxycodone 5 mg because he had a bad reaction.
[2024-11-23 17:01] VITALS: BP 104/68; PULSE 92; RESP 16; TEMP 36.8; O2SAT 99
[2024-11-23 18:06] VITALS: BP 112/67; PULSE 97; RESP 16; TEMP 37.3; O2SAT 98
[2024-11-23] MEDS: Dextrose 5 % and Lactated Ring 1,000 ML 100 ML IVCONT (19:52)
[2024-11-23 20:00] VITALS: BP 102/62; PULSE 90; RESP 16; TEMP 36.9; O2SAT 98
--- NOTE | 2024-11-23 21:55 | P.CONHOSP_ITS ---
History of Present Illness Data of Consult Service Date: 11/23/24 Requesting physician: Michael Rushing Primary Care Provider: Jessica Dill MD [facility] Reason for consult: Medical management Patient is a 49-year-old male nonverbal with mother at bedside and spanish interpreter/translator used, has past medical history of cerebral palsy with no respiratory manifestations, chronic impaired mobility, recent left hip surgery in August of 2024, hypotension, transaminitis, UTI is hospitalized for partial small bowel obstruction under the care of Dr. Rushing and General surgery Service. Hospitalist was consulted for medical management. Via spanish interpreter/translator, main concern medically is ?rash? that developed on patient's penis after suspected exposure to oxycodone. Patient had a rash on his upper chest and neck area which is now resolved. Also patient's urine was reflexed for culture but based on UA alone, low suspicion for UTI. Patient is not currently on antibiotics. Patient's caregiver offered no other current medical concerns at this time. Review of Systems 2 Review of Systems: Per patient's mother no issues with obvious chest pain, shortness of breath at rest. Patient has only the rash on penis since being exposed oxycodone. No other open wounds reported by patient's mother. Yes Unobtainable due to mental status (Patient is nonverbal) [facility] Medical History (Updated 11/23/24 @ 22:04 by DIANNA Carlson-LIANNA) Idiopathic hypotension Transaminitis Underweight Closed fracture of left hip Cerebral palsy Family history of diabetes mellitus Functional capacity: uses cane/walker Family History Father Diabetes Hypertension Mother Hypertension Diabetes Surgical History (Updated 11/23/24 @ 22:04 by DIANNA Carlson-LIANNA) History of left hip replacement Recent surgical procedure on lower extremity Social History Household Members: Family Housing: House Do you presently have visiting nurse or other home services: Yes Alcohol intake: never Patient Tobacco Use Status: Never used Tobacco e-Cigarette/Vaping Use: Never Used Second Hand Smoke Exposure: No service: No Current occupational status: disabled Cognitive needs: Yes Hearing needs: No Vision needs: No Ebola Risk: Travel/Contact With Anyone From Affected Area/s: No Has Patient Experienced Ebola Symptoms: No Meds Allergies Allergy/AdvReac Type Severity Reaction Status Date / Time celecoxib Allergy Hives Verified 11/23/24 09:39 oxycodone AdvReac Intermediate Rash Verified 11/23/24 22:02 Active Medications: Current Medications Acetaminophen (Acetaminophen 325 Mg Tablet) 650 mg PO Q6H PRN PRN Reason: Pain, Mild 1-3,fever,headache Calcium Carbonate (Calcium Carbonate 750 Mg Tab.Chew) 750 mg PO Q4H PRN PRN Reason: Heartburn Hydromorphone HCl (Hydromorphone Hcl 0.5 Mg/0.5 Ml Syringe) 0.25 mg IVPUSH Q3H PRN; Protocol PRN Reason: Pain, Severe (Pain Scale 7-10) Dextrose/Lactated Ringer's (D5lr) 1,000 mls @ 100 mls/hr IVCONT .Q10H [facility] Last Admin: 11/23/24 19:52 Dose: 100 mls/hr Magnesium Hydroxide (Milk Of Magnesia 30 Ml Oral.Susp) 30 ml PO DAILY PRN PRN Reason: Constipation Melatonin (Melatonin 3 Mg Tablet) 6 mg PO BEDTIME PRN PRN Reason: Insomnia Ondansetron HCl (Ondansetron Hcl 4 Mg/2 Ml Vial) 4 mg IVPUSH Q8H PRN PRN Reason: Nausea and Vomiting Sodium Chloride (0.9 % Sodium Chloride Flush 3 Ml Syringe) 3 ml IVFLUSH QSHIFT [facility] Physical Exam 2 Vital Signs and Narrative: Vital Signs: Last Vital Signs Temp 98.4 F 11/23/24 20:00 Pulse 90 11/23/24 20:00 Resp 16 11/23/24 20:00 BP 102/62 11/23/24 20:00 Pulse Ox 98 11/23/24 20:00 O2 Del Method Room Air 11/23/24 20:00 BMI result Body Mass Index 20.3 Alert and able to follow commands but is nonverbal. Brake Repairer Air present for interview. Neuro: CN II-X11 intact EYES: PERRLA, sclera nonicteric ENT: hearing intact, no issues with swallowing, uvula midline, lips moist, nares patent no epistaxis Cardiac: S1 S2 RRR, no murmur, no JVD, no edema in Lower ext Pulmonary: lungs clear to auscultation B Abdominal: BS noted midepigastric area, no guarding, tenderness, rebounding, distention present MSK: strength 4/5 upper and lower extremities : no CVA tenderness no bladder distension Extremities: no edema in lower extremities, PT and DP pulses palpable +2 Psych: mood content Skin: Noted erosion penis, no purulent drainage or redness or warmth noted, no lymphadenopathy noted in the groin area Results Labs 11/23/24 11:15 11/23/24 11:15 Labs: Laboratory Results - last 24 hr 11/23/24 11/23/24 11/23/24 09:51 11:15 15:43 MCV 88.7 MCH 28.3 MCHC 31.9 RDW 12.8 Plt Count 152 L D MPV 10.6 Immature Gran % (Auto) 0.3 Neut % (Auto) 81.6 H Lymph % (Auto) 10.9 L [place] % (Auto) 5.3 Eos % (Auto) 1.0 Baso % (Auto) 0.9 Lymph # (Auto) 1.3 [place] # (Auto) 0.6 Eos # (Auto) 0.1 Baso # (Auto) 0.1 Abs Immat Gran (auto) 0.04 H Absolute Neuts (auto) 9.6 H Absolute Nucleated RBC 0.000 Nucleated RBC % (auto) 0.0 ESR 36 H Anion Gap 11 L Estim Creat Clear Calc 107.3 Estimated GFR > 60 Random Glucose 84 Calcium 8.9 D C-Reactive Protein 10.92 H Urine Color Yellow Urine Appearance Clear Urine pH 6.5 Ur Specific [place] >= 1.030 H Urine Protein Negative Urine Glucose (UA) Negative Urine Ketones 15 Urine Blood Negative Urine Nitrite Negative Ur Leukocyte Esterase Small (1+) H Urine RBC 0-2 Urine WBC 0-5 Ur Squamous Epith Cells 0-2 Urine Bacteria None Seen Hyaline Casts 0-2 Influenza Type A (PCR) NEGATIVE Influenza Type B (PCR) NEGATIVE RSV RNA Qual (PCR) NEGATIVE SARS-CoV-2 RNA (RT-PCR) NEGATIVE ECG Prior ECG tracings: not available for review Imaging Radiologist's Impressions: Impressions Scrotum Ultrasound 11/23/24 09:41 IMPRESSION: Unremarkable scrotal ultrasound. Electronically signed by: Loc Whaley MD 11/23/2024 11:09 AM EDT Chest X-Ray 11/23/24 10:52 IMPRESSION: No acute airspace disease Mild dextroconvex scoliosis, thoracic spine. Electronically signed by: Arturo Perez MD 11/23/2024 12:04 PM EDT RP Abdomen/Pelvis CT 11/23/24 13:11 IMPRESSION: There is swirling of the mesentery and vessels (whirlpool sign) leading to bowel in the right lower quadrant that is fluid-filled. Small bowel in the left abdomen appears more decompressed than in the right raising question of a low-grade obstruction. Pulmonary vascular congestion. Fleischner guidelines were followed. Electronically signed by: Karlos Cruz MD 11/23/2024 03:05 PM EDT RP Assessment and Plan (1) SBO (small bowel obstruction): Status: Acute Plan Patient is a 49-year-old male nonverbal with mother at bedside and spanish interpreter/translator used, has past medical history of cerebral palsy with no respiratory manifestations, chronic impaired mobility, recent left hip surgery in August of 2024, hypotension, transaminitis, UTI is admitted under General surgery for partial small bowel obstruction. Patient currently receiving IV fluids. No NG tube is in place. Patient presents comfortable with mildly distended abdomen. Patient's mother and caregiver also notes a rash on patient's penis that started after exposure oxycodone. Patient did have a rash in the upper chest and neck area which is now resolved. Partial small-bowel obstruction -per general surgery Pulmonary vascular congestion noted on patient's CT done on 11/23 2024 -clinically patient presents euvolemic, lung sounds normal -checking BNP in the a.m., if elevated patient will need echocardiogram (pt is 49 yoa) -troponins normal -holding off on Lasix as patient is on room air and is not hypoxic -EKG also ordered Leukocytosis, elevated CRP -urine was reflexed for culture, UA low suspicion for UTI -await culture results prior to starting antibiotics -otherwise management per surgery for GI issues Rash on penis -bacitracin ordered -unclear if this is secondary to oxycodone exposure but oxycodone was added to patient's allergies -wound care consult ordered -scrotum ultrasound negative for any acute findings -exam also reassuring as there is no lymphadenopathy, purulent drainage -no history of STDs or herpes exposure Idiopathic hypotension -IV fluids currently running as patient is NPO -monitor blood pressure closely Status post left hip replacement -incision is healed -recommend PT evaluation this admission -fall prevention We appreciate this consultation we will continue to follow patient to review labs and EKG and make further recommendations as indicated.
[2024-11-23] MEDS: Bacitracin Oint 14 GM TUBE 1 APPL TOPICAL (22:47)
[2024-11-24] VITALS (8 sets, daily range): BP systolic 106–112; BP diastolic 55–70; PULSE 71–88; RESP 16–18; TEMP 36.1–37.1; O2SAT 96–99
[2024-11-24] MEDS: Dextrose 5 % and Lactated Ring 1,000 ML 100 ML IVCONT (05:33)
--- NOTE | 2024-11-24 05:41 | PC.NURSE ---
Pt had little urine output throughout the night, see I&O worklist. Pt on maintenance fluids and pt denies any discomfort to abdomen /bladder . Pt bladder scan for 345mls, MD Scott notified of the situation at 05:38. No new orders were given at this time, per MD to recheck in 4hrs. Will continue to monitor's pt's output.
--- NOTE | 2024-11-24 08:40 | P.PNGS_ITS ---
Subjective Subjective Date of Service: 11/24/24 Interval history: biomedical engineering technician used for this encounter. patient denies abdominal pain currently. He endorse passing gas. Denies nausea, vomiting. Physical Exam 2 Vital Signs: Vital Signs: Last Vital Signs Temp 97.5 F 11/24/24 08:00 Pulse 87 11/24/24 08:00 Resp 16 11/24/24 08:00 BP 112/65 11/24/24 08:00 Pulse Ox 97 11/24/24 08:00 O2 Del Method Room Air 11/24/24 08:00 BMI result Body Mass Index 20.3 Const: General: comfortable and no acute distress O rientation/consciousness: patient oriented x3 Resp: Effort & Inspection: normal respiratory effort GI: Inspection: No distended Palpation (GI): Soft to palpation, not firm, nontender, no guarding and not rigid Neuro: General: patient oriented x3 Objective Data Active Medications Acetaminophen (Acetaminophen 325 Mg Tablet) 650 mg PO Q6H PRN PRN Reason: Pain, Mild 1-3,fever,headache Bacitracin (Bacitracin Oint 14 Gm Tube) 1 appl TOPICAL BID [facility]; Protocol Last Admin: 11/23/24 22:47 Dose: 1 appl Documented By: DAVID Calcium Carbonate (Calcium Carbonate 750 Mg Tab.Chew) 750 mg PO Q4H PRN PRN Reason: Heartburn Hydromorphone HCl (Hydromorphone Hcl 0.5 Mg/0.5 Ml Syringe) 0.25 mg IVPUSH Q3H PRN; Protocol PRN Reason: Pain, Severe (Pain Scale 7-10) Dextrose/Lactated Ringer's (D5lr) 1,000 mls @ 100 mls/hr IVCONT .Q10H [facility] Last Admin: 11/24/24 05:33 Dose: 100 mls/hr Documented By: DAVID Magnesium Hydroxide (Milk Of Magnesia 30 Ml Oral.Susp) 30 ml PO DAILY PRN PRN Reason: Constipation Melatonin (Melatonin 3 Mg Tablet) 6 mg PO BEDTIME PRN PRN Reason: Insomnia Ondansetron HCl (Ondansetron Hcl 4 Mg/2 Ml Vial) 4 mg IVPUSH Q8H PRN PRN Reason: Nausea and Vomiting Sodium Chloride (0.9 % Sodium Chloride Flush 3 Ml Syringe) 3 ml IVFLUSH QSHIFT [facility] Last Admin: 11/24/24 00:24 Dose: Not Given Documented By: DAVID Non-Admin Reason: IV Running Labs 11/23/24 11:15 11/23/24 11:15 Labs: Laboratory Results - last 24 hr 11/23/24 11/23/24 11/23/24 09:51 11:15 15:43 MCV 88.7 MCH 28.3 MCHC 31.9 RDW 12.8 Plt Count 152 L D MPV 10.6 Immature Gran % (Auto) 0.3 Neut % (Auto) 81.6 H Lymph % (Auto) 10.9 L [place] % (Auto) 5.3 Eos % (Auto) 1.0 Baso % (Auto) 0.9 Lymph # (Auto) 1.3 [place] # (Auto) 0.6 Eos # (Auto) 0.1 Baso # (Auto) 0.1 Abs Immat Gran (auto) 0.04 H Absolute Neuts (auto) 9.6 H Absolute Nucleated RBC 0.000 Nucleated RBC % (auto) 0.0 ESR 36 H Anion Gap 11 L Estim Creat Clear Calc 107.3 Estimated GFR > 60 Random Glucose 84 Calcium 8.9 D C-Reactive Protein 10.92 H Urine Color Yellow Urine Appearance Clear Urine pH 6.5 Ur Specific [place] >= 1.030 H Urine Protein Negative Urine Glucose (UA) Negative Urine Ketones 15 Urine Blood Negative Urine Nitrite Negative Ur Leukocyte Esterase Small (1+) H Urine RBC 0-2 Urine WBC 0-5 Ur Squamous Epith Cells 0-2 Urine Bacteria None Seen Hyaline Casts 0-2 Influenza Type A (PCR) NEGATIVE Influenza Type B (PCR) NEGATIVE RSV RNA Qual (PCR) NEGATIVE SARS-CoV-2 RNA (RT-PCR) NEGATIVE Procedures Date of Service Date of Service: 11/24/24 Progress Note: A&P Assessment and plan (1) SBO (small bowel obstruction): Status: Acute Plan 49 year old male with a history of cerebral palsy presenting initially with groin redness found to have abdominal pain, nausea and vomiting. Workup revealed an elevated WBC and CT findings suggestive of a partial small-bowel obstruction. Patient is doing well this morning, denies abdominal pain, N/V. Has been passing flatus. Abdomen is soft and benign. Clinically unobstructed. No plan for surgical intervention, will continue conservative management. Trial clear liquids serial abdominal exams Time Spent With Patient Time: Total time managing care of this patient today ____ minutes. Quality Stroke Does the patient have a stroke diagnosis?: No VTE Prior VTE?: No VTE Risk Level:: Surgical - low VTE Device Contraindication: N/A - Device Ordered VTE Drug Contraindication: Treatment Not Indicated
[2024-11-24] MEDS: Bacitracin Oint 14 GM TUBE 1 APPL TOPICAL (09:09)
[2024-11-24 10:39] LABS: MANUAL DIFF FLAG NO
[2024-11-24 10:43] LABS: Basophils Absolute Auto 0.1 X10*3/uL (0.0-0.2); Basophils Percent Auto 0.4 % (0-2); Eosinophils Percent Auto 0.1 % (0-4); Hematocrit 40.8 % (42.0-52.0); Hemoglobin 13.1 g/dl (14.0-18.0); Imm Gran Abs Auto 0.13 X10*3/uL (0.00-0.03); Imm Gran Pct Auto 0.8 % (0.0-0.4); Lymphocytes Absolute Auto 1.3 X10*3/uL (1.2-4.9); Lymphocytes Percent Auto 8.6 % (20-40); Mean Corpuscular HGB Conc 32.1 g/dl (31.0-36.0); Mean Corpuscular Hemoglobin 28.3 pg (27.0-33.0); Mean Corpuscular Volume 88.1 fL (80.0-98.0); Mean Platelet Volume 10.9 fL (9.4-12.4); Monocytes Absolute Auto 0.7 X10*3/uL (0.1-1.2); Monocytes Percent Auto 4.5 % (2-11); Neutrophils Absolute Auto 13.3 x10*3/uL (2.0-8.3); Neutrophils Percent Auto 85.6 % (45-73); Platelet Count 173 X10*3/uL (160-400); Red Blood Count 4.63 X10*6/uL (4.60-5.80); Red Cell Distribution Width 12.9 % (11.0-16.0); White Blood Count 15.5 X10*3/uL (4.8-10.8)
[2024-11-24 10:58] LABS: Anion Gap 8 (12-20); Blood Urea Nitrogen 15 mg/dL (9-16); Calcium 8.7 mg/dL (8.4-10.2); Carbon Dioxide 26 mmol/L (22-29); Chloride 108 mmol/L (96-108); Estimated Glomerular Filt Rate > 60; Glucose Random 165 mg/dL (60-115); Potassium 3.3 mmol/L (3.3-5.1); Sodium 139 mmol/L (135-145)
[2024-11-24 10:59] LABS: Magnesium 1.9 mg/dL (1.6-2.6)
[2024-11-24 11:04] LABS: B Type Natriuretic Peptide 119 pg/mL (<100)
--- NOTE | 2024-11-24 12:08 | HO.PM.IMPN ---
Subjective Subjective Date of Service: 11/24/24 Interval History: minimally verbal no abd pain passing gas Review of Systems Review of Systems: Yes all other systems are reviewed and are negative Physical Exam Vital Signs: Vital Signs: Last Vital Signs Temp 98.1 F 11/24/24 11:32 Pulse 77 11/24/24 11:32 Resp 16 11/24/24 11:32 BP 107/55 L 11/24/24 11:32 Pulse Ox 99 11/24/24 11:32 O2 Del Method Room Air 11/24/24 11:32 BMI result Body Mass Index 20.3 Gen: in no acute distress HEENT: sclera anicteric, moist mucus membranes Neck: supple Lungs: clear to auscultation bilaterally Heart: regular rate and rhythm, no murmurs Abd: soft, non-tender, non-distended, normal bowel sounds : slightly erythematous rash on penis Ext: no edema Skin: warm/well-perfused Neuro: alert, minimally verbal, follows commands Psych: appropriate affect Objective Data Active Medications Acetaminophen (Acetaminophen 325 Mg Tablet) 650 mg PO Q6H PRN PRN Reason: Pain, Mild 1-3,fever,headache Bacitracin (Bacitracin Oint 14 Gm Tube) 1 appl TOPICAL BID [facility]; Protocol Last Admin: 11/24/24 09:09 Dose: 1 appl Documented By: SONY Calcium Carbonate (Calcium Carbonate 750 Mg Tab.Chew) 750 mg PO Q4H PRN PRN Reason: Heartburn Hydromorphone HCl (Hydromorphone Hcl 0.5 Mg/0.5 Ml Syringe) 0.25 mg IVPUSH Q3H PRN; Protocol PRN Reason: Pain, Severe (Pain Scale 7-10) Dextrose/Lactated Ringer's (D5lr) 1,000 mls @ 100 mls/hr IVCONT .Q10H [facility] Last Admin: 11/24/24 05:33 Dose: 100 mls/hr Documented By: DAVID Magnesium Hydroxide (Milk Of Magnesia 30 Ml Oral.Susp) 30 ml PO DAILY PRN PRN Reason: Constipation Melatonin (Melatonin 3 Mg Tablet) 6 mg PO BEDTIME PRN PRN Reason: Insomnia Ondansetron HCl (Ondansetron Hcl 4 Mg/2 Ml Vial) 4 mg IVPUSH Q8H PRN PRN Reason: Nausea and Vomiting Sodium Chloride (0.9 % Sodium Chloride Flush 3 Ml Syringe) 3 ml IVFLUSH QSHIFT [facility] Last Admin: 11/24/24 09:10 Dose: Not Given Documented By: SONY Non-Admin Reason: Headache Labs 11/24/24 10:26 11/24/24 10:26 Labs: Laboratory Results - last 24 hr 11/23/24 11/23/24 11/24/24 11:15 15:43 10:26 MCV 88.1 MCH 28.3 MCHC 32.1 RDW 12.9 Plt Count 173 MPV 10.9 Immature Gran % (Auto) 0.8 H Neut % (Auto) 85.6 H Lymph % (Auto) 8.6 L [place] % (Auto) 4.5 Eos % (Auto) 0.1 Baso % (Auto) 0.4 Lymph # (Auto) 1.3 [place] # (Auto) 0.7 Eos # (Auto) 0.0 Baso # (Auto) 0.1 Abs Immat Gran (auto) 0.13 H Absolute Neuts (auto) 13.3 H Absolute Nucleated RBC 0.000 Nucleated RBC % (auto) 0.0 ESR 36 H Anion Gap 8 L Estim Creat Clear Calc 117.0 Estimated GFR > 60 Random Glucose 165 H Calcium 8.7 Magnesium 1.9 B-Natriuretic Peptide 119 H Urine Color Yellow Urine Appearance Clear Urine pH 6.5 Ur Specific [place] >= 1.030 H Urine Protein Negative Urine Glucose (UA) Negative Urine Ketones 15 Urine Blood Negative Urine Nitrite Negative Ur Leukocyte Esterase Small (1+) H Urine RBC 0-2 Urine WBC 0-5 Ur Squamous Epith Cells 0-2 Urine Bacteria None Seen Hyaline Casts 0-2 Assessment and Plan (1) SBO (small bowel obstruction): Status: Acute Plan d2 for 49yo M with cerebral palsy, hypotension on midodrine admitted to Gen Surg for pSBO, improving rash on penis that family attributes to oxycodone; recent rash on upper chest and neck that resolved; Dr Rocha had prescribed [id number] pSBO - no NGT, trial of clears per Gen Surg pulmonary vascular congestion [CT finding] - appears euvolemic, BNP only 119, will monitor clinically for now leukocytosis - reactive; monitor; UA not consistent with UTI penile rash - trial of doxycycline hypotension, chronic - continue midodrine VTE ppx - SCDs, heparin when OK with surgery Thank you for this consultation. We will continue to follow the patient while they are admitted to your service. Total time managing care of this patient today: 35 minutes. Quality Stroke Does the patient have a stroke diagnosis?: No VTE Prior VTE?: No VTE Risk Level:: Surgical - low VTE Device Contraindication: N/A - Device Ordered VTE Drug Contraindication: Treatment Not Indicated
[2024-11-24] MEDS: Doxycycline Monohydrate 100 MG CAPSULE PO ×2 (13:23→23:14)
--- NOTE | 2024-11-24 14:15 | MHC.CM.PN ---
CM assessment completed w/ mother at bedside. IMM delivered. Keely w/ dx CP. Sister, Dee, is live truck technician through [facility] [employer] program. Mother and 3 other adult siblings also live in the home and assist. Ambulates w/ walker. Uses w/c for long distances. Active w/ [facility]. Per mother, sister Dee is HCP and will bring in a copy. PCP Jessica Dill MD DP: Goal is home, resume family support and services. BLS transport. CM will continue to follow.
--- NOTE | 2024-11-24 15:10 | W.MHC.F2F ---
Service Date Service Date: 11/24/24 Encounter Date of encounter: 11/24/24 Reasons for Services Signs and symptoms assessed: Left buttockleft buttock wound, examined, and dressings changed Reason for [facility]: wound care, postoperative assessment and/or care and diabetic teaching MD Overseeing Care: Michael Rushing Homebound: Leaving the home is medically contraindicated at this time without the asist of a devicue and/or another person due th the listed conditions above and below. Reason homebound: unsteady gait / fall risk, leg weakness and poor balance / fall risk Homebound supporting statement: Patient unable to leave due to open wound and weakness in his legs Certification: Based on the above findings, I certify that this patient is confined to the home and needs intermittent [facility] care, physical therapy and/or speech therapy, or continues to need occupational therapy. The patient is under my care, and I have initiated the establishment of the plan of care. The patient will be followed by a physician who will periodically review the plan of care. Time Spent With Patient Time: Total time managing care of this patient today __20__ minutes.
[2024-11-24] MEDS: Midodrine HCl 2.5 MG TABLET PO (16:26)
--- NOTE | 2024-11-24 21:40 | PC.NURSE ---
Pharmacy called about pt medication (midodrine), asked to fix order, per pharmacy to hold 2[address] Scott made aware.
[2024-11-24] MEDS: 0.9 % Sodium Chloride Flush 3 ML SYRINGE IVFLUSH (23:14)
[2024-11-25] VITALS (7 sets, daily range): BP systolic 96–111; BP diastolic 60–68; PULSE 68–80; RESP 14–18; TEMP 36–37; O2SAT 96–99
--- NOTE | 2024-11-25 03:30 | PC.NURSE ---
This RN assumed care at 1900, Pt denies pain/SOB/CP at this time. AOx2 mainly German speaking, but does not speak often usually just nods and smiles, with significant other at bedside to assist with communication. No pain with palpation to abd at this time, BSx4. Some non-pitting to b/t ankles. Pt allowed to sleep, RR even and non-labored, LS clear. Will continue to reassess.
[2024-11-25] MEDS: 0.9 % Sodium Chloride Flush 3 ML SYRINGE IVFLUSH ×3 (09:12→21:32)
[2024-11-25] MEDS: Midodrine HCl 2.5 MG TABLET PO ×3 (09:12→17:57)
[2024-11-25] MEDS: Bacitracin Oint 14 GM TUBE 1 APPL TOPICAL ×2 (09:13→21:27)
--- NOTE | 2024-11-25 13:11 | P.PNGS_ITS ---
Subjective Subjective Date of Service: 11/25/24 Physical Exam 2 Vital Signs: Vital Signs: Last Vital Signs Temp 97.4 F 11/25/24 11:46 Pulse 68 11/25/24 11:46 Resp 14 11/25/24 11:46 BP 107/64 11/25/24 11:46 Pulse Ox 97 11/25/24 11:46 O2 Del Method Room Air 11/25/24 11:46 BMI result Body Mass Index 20.3 Objective Data Active Medications Acetaminophen (Acetaminophen 325 Mg Tablet) 650 mg PO Q6H PRN PRN Reason: Pain, Mild 1-3,fever,headache Bacitracin (Bacitracin Oint 14 Gm Tube) 1 appl TOPICAL BID [facility]; Protocol Last Admin: 11/25/24 09:13 Dose: 1 appl Documented By: VANE Calcium Carbonate (Calcium Carbonate 750 Mg Tab.Chew) 750 mg PO Q4H PRN PRN Reason: Heartburn Doxycycline Monohydrate (Doxycycline Monohydrate 100 Mg Capsule) 100 mg PO Q12H [facility] Last Admin: 11/24/24 23:14 Dose: 100 mg Documented By: SUSI Hydromorphone HCl (Hydromorphone Hcl 0.5 Mg/0.5 Ml Syringe) 0.25 mg IVPUSH Q3H PRN; Protocol PRN Reason: Pain, Severe (Pain Scale 7-10) Magnesium Hydroxide (Milk Of Magnesia 30 Ml Oral.Susp) 30 ml PO DAILY PRN PRN Reason: Constipation Melatonin (Melatonin 3 Mg Tablet) 6 mg PO BEDTIME PRN PRN Reason: Insomnia Midodrine (Midodrine Hcl 2.5 Mg Tablet) 2.5 mg PO TIDWM [facility] Last Admin: 11/25/24 09:12 Dose: 2.5 mg Documented By: VANE Ondansetron HCl (Ondansetron Hcl 4 Mg/2 Ml Vial) 4 mg IVPUSH Q8H PRN PRN Reason: Nausea and Vomiting Sodium Chloride (0.9 % Sodium Chloride Flush 3 Ml Syringe) 3 ml IVFLUSH QSHIFT [facility] Last Admin: 11/25/24 09:12 Dose: 3 ml Documented By: VANE Valacyclovir HCl (Valacyclovir Hcl 1,000 Mg Tablet) 1,000 mg PO Q8H [facility] Stop: 12/05/24 12:44 Labs 11/24/24 10:26 11/24/24 10:26 Microbiology Microbiology Results: Microbiology 11/24/24 10:26 Blood Culture - Preliminary Blood - Venous No growth after 24 hours. 11/24/24 10:26 Blood Culture - Preliminary Blood - Venous No growth after 24 hours. 11/23/24 Unknown Urine Culture - Final Urine clean catch - Clean Catch Midstream Procedures Date of Service Date of Service: 11/25/24 Progress Note: A&P Time Spent With Patient Time: Total time managing care of this patient today ____ minutes. Quality Stroke Does the patient have a stroke diagnosis?: No VTE Prior VTE?: No VTE Risk Level:: Surgical - low VTE Device Contraindication: N/A - Device Ordered VTE Drug Contraindication: Treatment Not Indicated
--- NOTE | 2024-11-25 13:39 | HO.PM.IMPN ---
Subjective Subjective Date of Service: 11/25/24 Interval History: Continues to improve per family. Tolerating clear liquids. Passing gas. Rash on right oral commissure and bilateral cheeks Review of Systems Denies chest pain Denies shortness of breath Denies nausea vomiting diarrhea Denies fever chills. (family interpreting) Physical Exam Vital Signs: Vital Signs: Last Vital Signs Temp 97.4 F 11/25/24 11:46 Pulse 68 11/25/24 11:46 Resp 14 11/25/24 11:46 BP 107/64 11/25/24 11:46 Pulse Ox 97 11/25/24 11:46 O2 Del Method Room Air 11/25/24 11:46 BMI result Body Mass Index 20.3 Const: Other: Awake alert responds to yes or no questions. HEENT: Other: Right oral commissure with pustular lesions and some dried blood. Pustular lesions right and left cheek Resp: Other: Clear to auscultation bilaterally no rales rhonchi or wheezes Cardio: Other: No S4; positive S1-S2; no S3 murmurs rubs or gallops GI: Other: Soft nontender nondistended. Positive bowel sounds. Extrem: Other: No edema bilaterally Objective Data Active Medications Acetaminophen (Acetaminophen 325 Mg Tablet) 650 mg PO Q6H PRN PRN Reason: Pain, Mild 1-3,fever,headache Bacitracin (Bacitracin Oint 14 Gm Tube) 1 appl TOPICAL BID [facility]; Protocol Last Admin: 11/25/24 09:13 Dose: 1 appl Documented By: VANE Calcium Carbonate (Calcium Carbonate 750 Mg Tab.Chew) 750 mg PO Q4H PRN PRN Reason: Heartburn Doxycycline Monohydrate (Doxycycline Monohydrate 100 Mg Capsule) 100 mg PO Q12H [facility] Last Admin: 11/24/24 23:14 Dose: 100 mg Documented By: SUSI Hydromorphone HCl (Hydromorphone Hcl 0.5 Mg/0.5 Ml Syringe) 0.25 mg IVPUSH Q3H PRN; Protocol PRN Reason: Pain, Severe (Pain Scale 7-10) Magnesium Hydroxide (Milk Of Magnesia 30 Ml Oral.Susp) 30 ml PO DAILY PRN PRN Reason: Constipation Melatonin (Melatonin 3 Mg Tablet) 6 mg PO BEDTIME PRN PRN Reason: Insomnia Midodrine (Midodrine Hcl 2.5 Mg Tablet) 2.5 mg PO TIDWM [facility] Last Admin: 11/25/24 09:12 Dose: 2.5 mg Documented By: VANE Ondansetron HCl (Ondansetron Hcl 4 Mg/2 Ml Vial) 4 mg IVPUSH Q8H PRN PRN Reason: Nausea and Vomiting Sodium Chloride (0.9 % Sodium Chloride Flush 3 Ml Syringe) 3 ml IVFLUSH QSHIFT [facility] Last Admin: 11/25/24 09:12 Dose: 3 ml Documented By: VANE Valacyclovir HCl (Valacyclovir Hcl 1,000 Mg Tablet) 1,000 mg PO Q8H [facility] Stop: 12/05/24 12:44 Labs 11/24/24 10:26 11/24/24 10:26 Microbiology Microbiology Results: Microbiology 11/24/24 10:26 Blood Culture - Preliminary Blood - Venous No growth after 24 hours. 11/24/24 10:26 Blood Culture - Preliminary Blood - Venous No growth after 24 hours. 11/23/24 Unknown Urine Culture - Final Urine clean catch - Clean Catch Midstream Assessment and Plan (1) SBO (small bowel obstruction): Status: Acute (2) Idiopathic hypotension: Status: Acute Plan 49yo M with cerebral palsy, hypotension on midodrine;admitted to Gen Surg for pSBO, improving. Tolerating clear liquids without issue 1.PSBO -passing gas -tolerating clear liquids -advance diet as tolerated 2.Leukocytosis - reactive -follow daily CBC 3.Penile rash/Oral herpes - trial of doxycycline -Valtrex TID x 10 days 4.Hypotension, chronic - continue midodrine SCD Full Code Will follow Quality Stroke Does the patient have a stroke diagnosis?: No VTE Prior VTE?: No VTE Risk Level:: Surgical - low VTE Device Contraindication: N/A - Device Ordered VTE Drug Contraindication: Treatment Not Indicated
[2024-11-25] MEDS: valACYclovir HCL 1,000 MG TABLET 1000 MG PO ×2 (14:15→21:23)
[2024-11-25] MEDS: Doxycycline Monohydrate 100 MG CAPSULE PO (14:15)
--- NOTE | 2024-11-25 18:24 | P.PNGS_ITS ---
Subjective Subjective Date of Service: 11/25/24 Patient reports: no new complaints Interval history: Patient resting in bed with mom saying that he has passed gas. His abdomen is distended he nods but smiles when asked if he has pain. I am uncertain how reliable his history is Physical Exam 2 Vital Signs: Vital Signs: Last Vital Signs Temp 97.5 F 11/25/24 15:24 Pulse 69 11/25/24 15:24 Resp 14 11/25/24 15:24 BP 96/60 11/25/24 17:57 Pulse Ox 96 11/25/24 15:24 O2 Del Method Room Air 11/25/24 15:24 BMI result Body Mass Index 20.3 Const: General: cooperative, healthy appearing, comfortable and no acute distress GI: Other: Abdomen is soft but distended he does have normal bowel sounds. Mom says that this abdominal distention is unusual that his abdomen is generally quite flat Patient nods indicating that he has pain diffusely but seems fine without any guarding rebound or peritonitis Objective Data Active Medications Acetaminophen (Acetaminophen 325 Mg Tablet) 650 mg PO Q6H PRN PRN Reason: Pain, Mild 1-3,fever,headache Bacitracin (Bacitracin Oint 14 Gm Tube) 1 appl TOPICAL BID [facility]; Protocol Last Admin: 11/25/24 09:13 Dose: 1 appl Documented By: VANE Calcium Carbonate (Calcium Carbonate 750 Mg Tab.Chew) 750 mg PO Q4H PRN PRN Reason: Heartburn Doxycycline Monohydrate (Doxycycline Monohydrate 100 Mg Capsule) 100 mg PO Q12H [facility] Last Admin: 11/25/24 14:15 Dose: 100 mg Documented By: VANE Hydromorphone HCl (Hydromorphone Hcl 0.5 Mg/0.5 Ml Syringe) 0.25 mg IVPUSH Q3H PRN; Protocol PRN Reason: Pain, Severe (Pain Scale 7-10) Magnesium Hydroxide (Milk Of Magnesia 30 Ml Oral.Susp) 30 ml PO DAILY PRN PRN Reason: Constipation Melatonin (Melatonin 3 Mg Tablet) 6 mg PO BEDTIME PRN PRN Reason: Insomnia Midodrine (Midodrine Hcl 2.5 Mg Tablet) 2.5 mg PO TIDWM [facility] Last Admin: 11/25/24 17:57 Dose: 2.5 mg Documented By: VANE Ondansetron HCl (Ondansetron Hcl 4 Mg/2 Ml Vial) 4 mg IVPUSH Q8H PRN PRN Reason: Nausea and Vomiting Sodium Chloride (0.9 % Sodium Chloride Flush 3 Ml Syringe) 3 ml IVFLUSH QSHIFT [facility] Last Admin: 11/25/24 17:56 Dose: 3 ml Documented By: VANE Valacyclovir HCl (Valacyclovir Hcl 1,000 Mg Tablet) 1,000 mg PO Q8H [facility] Stop: 12/05/24 12:44 Last Admin: 11/25/24 14:15 Dose: 1,000 mg Documented By: VANE Labs 11/24/24 10:26 11/24/24 10:26 Microbiology Microbiology Results: Microbiology 11/24/24 10: Blood Culture - Preliminary Blood - Venous No growth after 24 hours. 11/24/24 10:26 Blood Culture - Preliminary Blood - Venous No growth after 24 hours. 11/23/24 Unknown Urine Culture - Final Urine clean catch - Clean Catch Midstream Procedures Date of Service Date of Service: 11/25/24 Progress Note: A&P Assessment and plan (1) SBO (small bowel obstruction): Status: Acute Assessment and Plan: 49-year-old male with a abdominal distention question partial small bowel obstruction in a virgin abdomen. There some findings on cat scan which may signify a twist in his white count was up yesterday. His abdomen exam is relatively benign other than the distention. There has been reports that he has been passing gas. Plan is to continue with just his sips of clears and make NPO after midnight and tomorrow morning do along p.o. contrast drink CAT scan to determine if there is a true obstruction. If contrast is not get to the: May need surgical exploration. We will also check labs in the morning. Medical team following along with this patient which is appreciated Time Spent With Patient Time: Total time managing care of this patient today ____ minutes. Quality Stroke Does the patient have a stroke diagnosis?: No VTE Prior VTE?: No VTE Risk Level:: Surgical - low VTE Device Contraindication: N/A - Device Ordered VTE Drug Contraindication: Treatment Not Indicated
[2024-11-26] VITALS (8 sets, daily range): BP systolic 108–130; BP diastolic 59–72; PULSE 76–87; RESP 12–18; TEMP 36–36.8; O2SAT 97–98
[2024-11-26] MEDS: Doxycycline Monohydrate 100 MG CAPSULE PO ×2 (00:53→14:01)
[2024-11-26] MEDS: valACYclovir HCL 1,000 MG TABLET 1000 MG PO ×3 (04:48→21:20)
[2024-11-26 07:05] LABS: Hematocrit 42.3 % (42.0-52.0); Hemoglobin 14.1 g/dl (14.0-18.0); Mean Corpuscular HGB Conc 33.3 g/dl (31.0-36.0); Mean Corpuscular Hemoglobin 28.7 pg (27.0-33.0); Mean Platelet Volume 11.8 fL (9.4-12.4); Platelet Count 165 X10*3/uL (160-400); Red Blood Count 4.92 X10*6/uL (4.60-5.80); Red Cell Distribution Width 12.5 % (11.0-16.0); White Blood Count 7.2 X10*3/uL (4.8-10.8)
[2024-11-26 07:15] LABS: Alanine Aminotransferase 57 U/L (0-40); Albumin Level 3.2 g/dL (3.5-5.0); Alkaline Phosphatase 169 U/L (39-117); Anion Gap 13 (12-20); Aspartate Amino Transferase 29 U/L (5-37); Bilirubin Total 0.6 mg/dL (0.0-1.0); Blood Urea Nitrogen 14 mg/dL (9-16); Calcium 8.8 mg/dL (8.4-10.2); Carbon Dioxide 26 mmol/L (22-29); Chloride 103 mmol/L (96-108); Creatinine Clr Calc Pharmacy 131.4; Estimated Glomerular Filt Rate > 60; Glucose Fasting 71 mg/dL (60-99); Potassium 3.8 mmol/L (3.3-5.1); Sodium 138 mmol/L (135-145); Total Protein 6.3 g/dL (6.5-8.0)
[2024-11-26 07:34] LABS: Atypical Lymph Absolute Manual 0.1 x10*3/uL; Atypical Lymphs Percent Manual 1 % (0-6); Band Neutrophils Percent 4 % (3-5); Basophils Abs Manual 0.1 X10*3/uL (0.0-0.2); Basophils Percent Manual 1 % (0-2); Eosinophils Absolute Manual 0.3 X10*3/uL (0.0-0.4); Eosinophils Percent Manual 4 % (0-4); Lymphocytes Percent Manual 14 % (20-40); Metamyelocytes Absolute 0.2 X10*3/uL; Metamyelocytes Percent 3 %; Monocytes Absolute Manual 0.5 X10*3/uL (0.1-1.2); Monocytes Percent Manual 7 % (2-11); Myelocytes Absolute 0.2 X10*/uL; Myelocytes Percent 3 %; Neutrophils Absolute Manual 4.8 X10*3/uL (2.0-8.3); Neutrophils Percent Manual 63 % (45-73)
[2024-11-26 07:35] LABS: Burr Cells 1+ (0-2) /OIF; Platelet Estimate NORMAL (NORMAL); Platelet Morphology Comment NORMAL; RBC Morphology NOTED
[2024-11-26] MEDS: Midodrine HCl 2.5 MG TABLET PO ×2 (09:35→14:01)
[2024-11-26] MEDS: 0.9 % Sodium Chloride Flush 3 ML SYRINGE IVFLUSH ×3 (09:36→21:21)
[2024-11-26] MEDS: Bacitracin Oint 14 GM TUBE 1 APPL TOPICAL ×2 (09:45→21:20)
[2024-11-26] MEDS: iohexoL 350 MG/ML 100 ML INFUS..BTL IV (12:13)
[2024-11-26] MEDS: Diatrizoate Meglumine, Sodium 30 ML SOLUTION PO (12:13)
--- NOTE | 2024-11-26 14:51 | P.PNIM_ITS ---
Subjective Subjective Date of Service: 11/26/24 Interval History: Per family patient states feels better and passing gas. No nausea or vomiting Review of Systems Denies chest pain Denies shortness of breath Denies nausea vomiting diarrhea Denies fever chills. (family interpreting) Physical Exam 2 Vital Signs: Vital Signs: Last Vital Signs Temp 98.2 F 11/26/24 13:27 Pulse 84 11/26/24 13:27 Resp 12 11/26/24 13:27 BP 130/72 11/26/24 13:27 Pulse Ox 98 11/26/24 13:27 O2 Del Method Room Air 11/26/24 13:27 BMI result Body Mass Index 20.3 Const: Other: Awake alert responds to yes or no questions. HEENT: Other: Right oral commissure with pustular lesions and some dried blood. Pustular lesions right and left cheek Resp: Other: Clear to auscultation bilaterally no rales rhonchi or wheezes Cardio: Other: No S4; positive S1-S2; no S3 murmurs rubs or gallops GI: Other: Soft nontender nondistended. Positive bowel sounds. Extrem: Other: No edema bilaterally Objective Data Active Medications Acetaminophen (Acetaminophen 325 Mg Tablet) 650 mg PO Q6H PRN PRN Reason: Pain, Mild 1-3,fever,headache Bacitracin (Bacitracin Oint 14 Gm Tube) 1 appl TOPICAL BID [facility]; Protocol Last Admin: 11/26/24 09:45 Dose: 1 appl Documented By: VANE Calcium Carbonate (Calcium Carbonate 750 Mg Tab.Chew) 750 mg PO Q4H PRN PRN Reason: Heartburn Doxycycline Monohydrate (Doxycycline Monohydrate 100 Mg Capsule) 100 mg PO Q12H [facility] Last Admin: 11/26/24 14:01 Dose: 100 mg Documented By: VANE Hydromorphone HCl (Hydromorphone Hcl 0.5 Mg/0.5 Ml Syringe) 0.25 mg IVPUSH Q3H PRN; Protocol PRN Reason: Pain, Severe (Pain Scale 7-10) Magnesium Hydroxide (Milk Of Magnesia 30 Ml Oral.Susp) 30 ml PO DAILY PRN PRN Reason: Constipation Melatonin (Melatonin 3 Mg Tablet) 6 mg PO BEDTIME PRN PRN Reason: Insomnia Midodrine (Midodrine Hcl 2.5 Mg Tablet) 2.5 mg PO TIDWM [facility] Last Admin: 11/26/24 14:01 Dose: 2.5 mg Documented By: VANE Ondansetron HCl (Ondansetron Hcl 4 Mg/2 Ml Vial) 4 mg IVPUSH Q8H PRN PRN Reason: Nausea and Vomiting Sodium Chloride (0.9 % Sodium Chloride Flush 3 Ml Syringe) 3 ml IVFLUSH QSHIFT [facility] Last Admin: 11/26/24 09:36 Dose: 3 ml Documented By: VANE Valacyclovir HCl (Valacyclovir Hcl 1,000 Mg Tablet) 1,000 mg PO Q8H [facility] Stop: 12/05/24 12:44 Last Admin: 11/26/24 14:01 Dose: 1,000 mg Documented By: VANE Labs 11/26/24 06:21 11/26/24 06:21 Labs: Laboratory Results - last 24 hr 11/26/24 06:21 MCV 86.0 MCH 28.7 MCHC 33.3 RDW 12.5 Plt Count 165 MPV 11.8 Immature Gran % (Auto) Cancelled Neut % (Auto) Cancelled Lymph % (Auto) Cancelled [place] % (Auto) Cancelled Eos % (Auto) Cancelled Baso % (Auto) Cancelled Lymph # (Auto) Cancelled [place] # (Auto) Cancelled Eos # (Auto) Cancelled Baso # (Auto) Cancelled Abs Immat Gran (auto) Cancelled Absolute Neuts (auto) Cancelled Absolute Nucleated RBC 0.000 Nucleated RBC % (auto) 0.0 Neutrophils % (Manual) 63 Band Neutrophils % 4 Lymphocytes % (Manual) 14 L Atypical Lymphs % (Man) 1 Monocytes % (Manual) 7 Eosinophils % (Manual) 4 Basophils % (Manual) 1 Metamyelocytes % 3 Myelocytes % 3 Abs Neuts (Manual) 4.8 Lymphocytes # (Manual) 1.0 L Atyp Lymphs # (Manual) 0.1 Monocytes # (Manual) 0.5 Eosinophils # (Manual) 0.3 Basophils # (Manual) 0.1 Metamyelocytes # 0.2 Myelocytes # 0.2 Platelet Estimate NORMAL Plt Morphology Comment NORMAL RBC Morphology NOTED [place] Cells 1+ (0-2) Anion Gap 13 Estim Creat Clear Calc 131.4 Estimated GFR > 60 Fasting Glucose 71 Calcium 8.8 Total Bilirubin 0.6 AST 29 ALT 57 H Alkaline Phosphatase 169 H Total Protein 6.3 L Albumin 3.2 L Microbiology Microbiology Results: Microbiology 11/24/24 10:26 Blood Culture - Preliminary Blood - Venous No growth after 48 hours. 11/24/24 10:26 Blood Culture - Preliminary Blood - Venous No growth after 48 hours. 11/23/24 Unknown Urine Culture - Final Urine clean catch - Clean Catch Midstream Assessment and Plan (1) SBO (small bowel obstruction): Status: Acute (2) Idiopathic hypotension: Status: Acute Plan 49yo M with cerebral palsy, hypotension on midodrine;admitted to Gen Surg for pSBO, improving. Tolerating clear liquids without issue 1.PSBO -passing gas... CT noted to have contrast to rectum. No transition point -tolerating clear liquids -advance diet as tolerated/as per surgery 2.Leukocytosis - reactive... Normalized -follow daily CBC 3.Penile rash/Oral herpes - trial of doxycycline -Valtrex TID x 10 days 4.Hypotension.. Normotensive at this time - continue midodrine SCD Full Code Will follow Quality Stroke Does the patient have a stroke diagnosis?: No VTE Prior VTE?: No VTE Risk Level:: Surgical - low VTE Device Contraindication: N/A - Device Ordered VTE Drug Contraindication: Treatment Not Indicated
--- NOTE | 2024-11-26 15:04 | P.PNGS_ITS ---
Subjective Subjective Date of Service: 11/26/24 Interval history: PATIENT LOOKS LIKE HE IS DOING WELL. DENIES ANY ABDOMINAL PAIN. Hungry. Abdomen is less distended Physical Exam 2 Vital Signs: Vital Signs: Last Vital Signs Temp 98.2 F 11/26/24 13:27 Pulse 84 11/26/24 13:27 Resp 12 11/26/24 13:27 BP 130/72 11/26/24 13:27 Pulse Ox 98 11/26/24 13:27 O2 Del Method Room Air 11/26/24 13:27 BMI result Body Mass Index 20.3 Const: General: cooperative, healthy appearing, comfortable and no acute distress HEENT: Other: Lesions on face are less acute Resp: Effort & Inspection: normal respiratory effort Auscultation: clear to auscultation bilaterally Cardio: Rate: regular rate Rhythm: regular rhythm GI: Other: Abdomen is softer less distended active bowel sounds Objective Data Active Medications Acetaminophen (Acetaminophen 325 Mg Tablet) 650 mg PO Q6H PRN PRN Reason: Pain, Mild 1-3,fever,headache Bacitracin (Bacitracin Oint 14 Gm Tube) 1 appl TOPICAL BID [facility]; Protocol Last Admin: 11/26/24 09:45 Dose: 1 appl Documented By: VANE Calcium Carbonate (Calcium Carbonate 750 Mg Tab.Chew) 750 mg PO Q4H PRN PRN Reason: Heartburn Doxycycline Monohydrate (Doxycycline Monohydrate 100 Mg Capsule) 100 mg PO Q12H [facility] Last Admin: 11/26/24 14:01 Dose: 100 mg Documented By: VANE Hydromorphone HCl (Hydromorphone Hcl 0.5 Mg/0.5 Ml Syringe) 0.25 mg IVPUSH Q3H PRN; Protocol PRN Reason: Pain, Severe (Pain Scale 7-10) Magnesium Hydroxide (Milk Of Magnesia 30 Ml Oral.Susp) 30 ml PO DAILY PRN PRN Reason: Constipation Melatonin (Melatonin 3 Mg Tablet) 6 mg PO BEDTIME PRN PRN Reason: Insomnia Midodrine (Midodrine Hcl 2.5 Mg Tablet) 2.5 mg PO TIDWM [facility] Last Admin: 11/26/24 14:01 Dose: 2.5 mg Documented By: VANE Ondansetron HCl (Ondansetron Hcl 4 Mg/2 Ml Vial) 4 mg IVPUSH Q8H PRN PRN Reason: Nausea and Vomiting Sodium Chloride (0.9 % Sodium Chloride Flush 3 Ml Syringe) 3 ml IVFLUSH QSHIFT [facility] Last Admin: 11/26/24 09:36 Dose: 3 ml Documented By: VANE Valacyclovir HCl (Valacyclovir Hcl 1,000 Mg Tablet) 1,000 mg PO Q8H [facility] Stop: 12/05/24 12:44 Last Admin: 11/26/24 14:01 Dose: 1,000 mg Documented By: VANE Labs 11/26/24 06:21 11/26/24 06:21 Labs: Laboratory Results - last 24 hr 11/26/24 06:21 MCV 86.0 MCH 28.7 MCHC 33.3 RDW 12.5 Plt Count 165 MPV 11.8 Immature Gran % (Auto) Cancelled Neut % (Auto) Cancelled Lymph % (Auto) Cancelled [place] % (Auto) Cancelled Eos % (Auto) Cancelled Baso % (Auto) Cancelled Lymph # (Auto) Cancelled [place] # (Auto) Cancelled Eos # (Auto) Cancelled Baso # (Auto) Cancelled Abs Immat Gran (auto) Cancelled Absolute Neuts (auto) Cancelled Absolute Nucleated RBC 0.000 Nucleated RBC % (auto) 0.0 Neutrophils % (Manual) 63 Band Neutrophils % 4 Lymphocytes % (Manual) 14 L Atypical Lymphs % (Man) 1 Monocytes % (Manual) 7 Eosinophils % (Manual) 4 Basophils % (Manual) 1 Metamyelocytes % 3 Myelocytes % 3 Abs Neuts (Manual) 4.8 Lymphocytes # (Manual) 1.0 L Atyp Lymphs # (Manual) 0.1 Monocytes # (Manual) 0.5 Eosinophils # (Manual) 0.3 Basophils # (Manual) 0.1 Metamyelocytes # 0.2 Myelocytes # 0.2 Platelet Estimate NORMAL Plt Morphology Comment NORMAL RBC Morphology NOTED [place] Cells 1+ (0-2) Anion Gap 13 Estim Creat Clear Calc 131.4 Estimated GFR > 60 Fasting Glucose 71 Calcium 8.8 Total Bilirubin 0.6 AST 29 ALT 57 H Alkaline Phosphatase 169 H Total Protein 6.3 L Albumin 3.[address] scan - pelvis: Radiologist's impression: CT Scan Report Signed Patient: Dipak Landers MR#: [id number] : 1975 Acct:[id number] Age/Sex: 49 / M ADM Date: 11/23/24 Loc: .S3 377-[address]: Michael Rushing MD Ordering Physician: Gladis Burdick MD Date of Service: 11/26/24 Procedure(s): CT abdomen pelvis wo/w IV con Accession Number(s): [id number] cc: Gladis Burdick MD; Jessica Holloway MD~ Report Number: [id number]: Total DLP = 663.00 mGy-cm CLINICAL HISTORY: psbo- please long po drink 4 hrs, start 8am wednesday CT abdomen and pelvis with and without contrast Comparison: CT/SR - CT ABDOMEN PELVIS W IV CON - 11/23/24 14:11 EDT Findings: No consolidation at the lung bases. Unremarkable gallbladder and bladder. Cyst in the right kidney. Left renal parapelvic cyst. The other solid organs are unremarkable. Oral contrast reaches the rectum. There are few loops of small bowel which are mildly dilated, measuring up to 2.9 cm. There is no discrete transition point. No definitive bowel wall thickening. No pneumatosis or portal venous gas. A normal appendix is identified. No aneurysm. Mild calcified atherosclerotic disease. No lymphadenopathy. No ascites. No acute osseous abnormality. Status post fixation of the left proximal femur. Impression: No high-grade small bowel obstruction. No discrete transition point to indicate partial obstruction.Small bowel ileus could be considered. This document has been electronically signed by: Chelsi Tovar MD on 11/26/2024 14:03:29 Dictated By: Chelsi Augustin MD Signed By: <Electronically signed by Chelsi Augustin MD in [place]> 11/26/24 1405 DD/ 1403 TD/TT: 11/26/24 1403 Media Analyst: Microbiology Microbiology Results: Microbiology 11/24/24 10:26 Blood Culture - Preliminary Blood - Venous No growth after 48 hours. 11/24/24 10:26 Blood Culture - Preliminary Blood - Venous No growth after 48 hours. 11/23/24 Unknown Urine Culture - Final Urine clean catch - Clean Catch Midstream Procedures Date of Service Date of Service: 11/26/24 Progress Note: A&P Assessment and plan (1) SBO (small bowel obstruction): Status: Acute Assessment and Plan: 49-year-old male with partial small bowel obstruction improved. Yesterday due to the fact that he was still complaining of abdominal pain in his abdomen was remarkably distended and white count had been 15,000 CT scan of the abdomen and pelvis with p.o. contrast was carried out today. Long drink and allowed contrast to go all the way to the rectal area. There is no evidence of any obstruction or inflammatory changes. Plan to advance his diet. Time Spent With Patient Time: Total time managing care of this patient today ____ minutes. Quality Stroke Does the patient have a stroke diagnosis?: No VTE Prior VTE?: No VTE Risk Level:: Surgical - low VTE Device Contraindication: N/A - Device Ordered VTE Drug Contraindication: Treatment Not Indicated
[2024-11-27] MEDS: Doxycycline Monohydrate 100 MG CAPSULE PO ×2 (00:54→11:41)
[2024-11-27 03:35] VITALS: BP 123/72; PULSE 70; RESP 16; TEMP 37.1; O2SAT 97
[2024-11-27] MEDS: valACYclovir HCL 1,000 MG TABLET 1000 MG PO ×2 (05:32→11:45)
[2024-11-27 06:57] LABS: Alanine Aminotransferase 49 U/L (0-40); Albumin Level 3.2 g/dL (3.5-5.0); Alkaline Phosphatase 158 U/L (39-117); Anion Gap 12 (12-20); Aspartate Amino Transferase 26 U/L (5-37); Bilirubin Total 0.5 mg/dL (0.0-1.0); Blood Urea Nitrogen 10 mg/dL (9-16); Calcium 8.9 mg/dL (8.4-10.2); Carbon Dioxide 27 mmol/L (22-29); Chloride 101 mmol/L (96-108); Creatinine Clr Calc Pharmacy 126.2; Estimated Glomerular Filt Rate > 60; Glucose Fasting 87 mg/dL (60-99); Sodium 136 mmol/L (135-145); Total Protein 6.1 g/dL (6.5-8.0)
[2024-11-27 07:00] LABS: Hematocrit 43.1 % (42.0-52.0); Mean Corpuscular HGB Conc 32.5 g/dl (31.0-36.0); Mean Corpuscular Hemoglobin 28.3 pg (27.0-33.0); Mean Corpuscular Volume 87.1 fL (80.0-98.0); Mean Platelet Volume 10.3 fL (9.4-12.4); Platelet Count 265 X10*3/uL (160-400); Red Blood Count 4.95 X10*6/uL (4.60-5.80); Red Cell Distribution Width 12.2 % (11.0-16.0); White Blood Count 6.1 X10*3/uL (4.8-10.8)
[2024-11-27 07:37] VITALS: BP 118/73; PULSE 78; RESP 16; TEMP 36.3; O2SAT 97
[2024-11-27 07:39] LABS: Band Neutrophils Percent 3 % (3-5); Basophils Abs Manual 0.1 X10*3/uL (0.0-0.2); Basophils Percent Manual 1 % (0-2); Eosinophils Absolute Manual 0.2 X10*3/uL (0.0-0.4); Eosinophils Percent Manual 3 % (0-4); Lymphocytes Absolute Manual 1.3 X10*3/uL (1.2-4.9); Lymphocytes Percent Manual 21 % (20-40); Metamyelocytes Absolute 0.1 X10*3/uL; Metamyelocytes Percent 2 %; Monocytes Absolute Manual 0.9 X10*3/uL (0.1-1.2); Monocytes Percent Manual 14 % (2-11); Myelocytes Absolute 0.1 X10*/uL; Myelocytes Percent 1 %; Neutrophils Absolute Manual 3.5 X10*3/uL (2.0-8.3); Neutrophils Percent Manual 55 % (45-73)
[2024-11-27 07:41] LABS: Burr Cells 1+ (0-2) /OIF; Platelet Estimate NORMAL (NORMAL); RBC Morphology NOTED
[2024-11-27 07:42] LABS: Platelet Morphology Comment NORMAL
--- NOTE | 2024-11-27 08:32 | PM.PNGS ---
Subjective Subjective Date of Service: 11/27/24 <Marcelo Turner PA-C - Last Filed: 11/27/24 08:36> 11/27/24 <Michael Rushing MD - Last Filed: 11/27/24 11:13> Patient reports: no new complaints <MALIK Small Last Filed: 11/27/24 08:36> Interval history: Gatekeeper used for this evaluation. Patient doing well. Denies nausea, vomiting, bloating. Denies fever, chills. Endorses 5 bowel movements yesterday. Patient is tolerating regular diet. <Marcelo Turner PA-C - Last Filed: 11/27/24 08:36> Physical Exam Vital Signs: Vital Signs: Last Vital Signs Temp 97.4 F 11/27/24 07:37 Pulse 78 11/27/24 07:37 Resp 16 11/27/24 07:37 BP 118/73 11/27/24 07:37 Pulse Ox 97 11/27/24 07:37 O2 Del Method Room Air 11/27/24 07:37 BMI result Body Mass Index 20.3 <MALIK Small Last Filed: 11/27/24 08:36> Const: General: comfortable and no acute distress <MALIK Small Last Filed: 11/27/24 08:36> Orientation/consciousness: patient oriented x3 <MALIK Small Last Filed: 11/27/24 08:36> Resp: Effort & Inspection: normal respiratory effort and able to speak in complete sentences <MALIK Small Last Filed: 11/27/24 08:36> GI: Inspection: No distended <MALIK Small Last Filed: 11/27/24 08:36> Palpation (GI): Soft to palpation, not firm, nontender, no guarding and not rigid <MALIK Small Last Filed: 11/27/24 08:36> Neuro: General: patient oriented x3 <MALIK Small Last Filed: 11/27/24 08:36> Objective Data Active Medications Acetaminophen (Acetaminophen 325 Mg Tablet) 650 mg PO Q6H PRN PRN Reason: Pain, Mild 1-3,fever,headache Bacitracin (Bacitracin Oint 14 Gm Tube) 1 appl TOPICAL BID [facility]; Protocol Last Admin: 11/26/24 21:20 Dose: 1 appl Documented By: RADHA Calcium Carbonate (Calcium Carbonate 750 Mg Tab.Chew) 750 mg PO Q4H PRN PRN Reason: Heartburn Doxycycline Monohydrate (Doxycycline Monohydrate 100 Mg Capsule) 100 mg PO Q12H [facility] Last Admin: 11/27/24 00:54 Dose: 100 mg Documented By: RADHA Hydromorphone HCl (Hydromorphone Hcl 0.5 Mg/0.5 Ml Syringe) 0.25 mg IVPUSH Q3H PRN; Protocol PRN Reason: Pain, Severe (Pain Scale 7-10) Magnesium Hydroxide (Milk Of Magnesia 30 Ml Oral.Susp) 30 ml PO DAILY PRN PRN Reason: Constipation Melatonin (Melatonin 3 Mg Tablet) 6 mg PO BEDTIME PRN PRN Reason: Insomnia Midodrine (Midodrine Hcl 2.5 Mg Tablet) 2.5 mg PO TIDWM [facility] Last Admin: 11/26/24 18:49 Dose: Not Given Documented By: TI Non-Admin Reason: held for BP 119/66, per mar do not give after Ondansetron HCl (Ondansetron Hcl 4 Mg/2 Ml Vial) 4 mg IVPUSH Q8H PRN PRN Reason: Nausea and Vomiting Sodium Chloride (0.9 % Sodium Chloride Flush 3 Ml Syringe) 3 ml IVFLUSH QSHIFT [facility] Last Admin: 11/26/24 21:21 Dose: 3 ml Documented By: RADHA Valacyclovir HCl (Valacyclovir Hcl 1,000 Mg Tablet) 1,000 mg PO Q8H [facility] Stop: 12/05/24 12:44 Last Admin: 11/27/24 05:32 Dose: 1,000 mg Documented By: RADHA <Marcelo Turner PA-C - Last Filed: 11/27/24 08:36> Labs CBC & Chem 7: 11/27/24 06:00 11/27/24 06:00 <Marcelo Turner PA-C - Last Filed: 11/27/24 08:36> Labs: Laboratory Results - last 24 hr 11/27/24 06:00 MCV 87.1 MCH 28.3 MCHC 32.5 RDW 12.2 Plt Count 265 D MPV 10.3 Immature Gran % (Auto) Cancelled Neut % (Auto) Cancelled Lymph % (Auto) Cancelled [place] % (Auto) Cancelled Eos % (Auto) Cancelled Baso % (Auto) Cancelled Lymph # (Auto) Cancelled [place] # (Auto) Cancelled Eos # (Auto) Cancelled Baso # (Auto) Cancelled Abs Immat Gran (auto) Cancelled Absolute Neuts (auto) Cancelled Absolute Nucleated RBC 0.000 Nucleated RBC % (auto) 0.0 Neutrophils % (Manual) 55 Band Neutrophils % 3 Lymphocytes % (Manual) 21 Monocytes % (Manual) 14 H Eosinophils % (Manual) 3 Basophils % (Manual) 1 Metamyelocytes % 2 Myelocytes % 1 Abs Neuts (Manual) 3.5 Lymphocytes # (Manual) 1.3 Monocytes # (Manual) 0.9 Eosinophils # (Manual) 0.2 Basophils # (Manual) 0.1 Metamyelocytes # 0.1 Myelocytes # 0.1 Platelet Estimate NORMAL Plt Morphology Comment NORMAL RBC Morphology NOTED [place] Cells 1+ (0-2) Anion Gap 12 Estim Creat Clear Calc 126.2 Estimated GFR > 60 Fasting Glucose 87 Calcium 8.9 Total Bilirubin 0.5 AST 26 ALT 49 H Alkaline Phosphatase 158 H Total Protein 6.1 L Albumin 3.2 L <Marcelo Turner PA-C - Last Filed: 11/27/24 08:36> Microbiology Microbiology Results: Microbiology 11/24/24 10:26 Blood Culture - Preliminary Blood - Venous No growth after 48 hours. 11/24/24 10:26 Blood Culture - Preliminary Blood - Venous No growth after 48 hours. <Marcelo Turner PA-C - Last Filed: 11/27/24 08:36> Procedures Date of Service Date of Service: 11/27/24 <Marcelo Turner PA-C - Last Filed: 11/27/24 08:36> 11/27/24 <Michael Rushing MD - Last Filed: 11/27/24 11:13> Progress Note: A&P Assessment and plan (1) SBO (small bowel obstruction): Status: Acute <Marcelo Turner PA-C - Last Filed: 11/27/24 08:36> Assessment and Plan: 49-year-old male admitted for management of partial small bowel obstruction. Patient doing well, clinically unobstructed. Patient passed multiple bowel movements yesterday. Currently asymptomatic, denying nausea, vomiting, abdominal pain. I reviewed repeat imaging, no evidence of small-bowel obstruction at this time, oral contrast passing through small and large bowel. Abdominal exam is soft and benign. No plans for surgical intervention, patient okay to be discharged pending hospitalist input. <Marcelo Turner PA-C - Last Filed: 11/27/24 08:36> 49-year-old male admitted for management of partial small bowel obstruction. Patient doing well, clinically unobstructed. Patient passed multiple bowel movements yesterday. Currently asymptomatic, denying nausea, vomiting, abdominal pain. I reviewed repeat imaging, no evidence of small-bowel obstruction at this time, oral contrast passing through small and large bowel. Abdominal exam is soft and benign. No plans for surgical intervention, patient okay to be discharged pending hospitalist input. Patient seen and examined and agree with the above assessment. He is much improved, tolerating a diet without nausea or vomiting. He continues to move his bowels as well. CT reviewed and contrast noted to pass without obstruction. Plan discharge to home today. Follow up in the office in approximately 1-2 weeks. <Michael Rushing MD - Last Filed: 11/27/24 11:13> Time Spent With Patient Time: Total time managing care of this patient today ____ minutes. <Marcelo Turner PA-C - Last Filed: 11/27/24 08:36> Quality Stroke Does the patient have a stroke diagnosis?: No <Marcelo Turner PA-C - Last Filed: 11/27/24 08:36> VTE Prior VTE?: No <Marcelo Turner PA-C - Last Filed: 11/27/24 08:36> VTE Risk Level:: Surgical - low <Marcelo Turner PA-C - Last Filed: 11/27/24 08:36> VTE Device Contraindication: N/A - Device Ordered <Marcelo Turner PA-C - Last Filed: 11/27/24 08:36> VTE Drug Contraindication: Treatment Not Indicated <Marcelo Turner PA-C - Last Filed: 11/27/24 08:36>
[2024-11-27 09:44] VITALS: BP 125/66
[2024-11-27] MEDS: Midodrine HCl 2.5 MG TABLET PO ×2 (09:44→11:41)
[2024-11-27] MEDS: Bacitracin Oint 14 GM TUBE 1 APPL TOPICAL (09:46)
--- NOTE | 2024-11-27 11:31 | P.F2F_ITS ---
Service Date Service Date: 11/27/24 Encounter Date of encounter: 11/27/24 Reasons for Services Signs and symptoms assessed: Patient is tolerating regular diet without nausea or vomiting or increased abdominal pain. He has had multiple bowel movements since his CT abdomen and pelvis yesterday. Small-bowel obstruction is now resolved. Reason for senior living: wound care and medication management MD Overseeing Care: Jessica Dill Homebound: Leaving the home is medically contraindicated at this time without the asist of a device and/or another person due th the listed conditions above and below. Reason homebound: unsteady gait / fall risk and weakness related to hospital stay Certification: Based on the above findings, I certify that this patient is confined to the home and needs intermittent senior living care, physical therapy and/or speech therapy, or continues to need occupational therapy. The patient is under my care, and I have initiated the establishment of the plan of care. The patient will be followed by a physician who will periodically review the plan of care. Time Spent With Patient Time: Total time managing care of this patient today ____ minutes.
--- NOTE | 2024-11-27 11:31 | MHC.CM.PN ---
Addendum entered by Asha Matamoros 11/27/24 12:25: [facility] ACCEPTING REFERRAL DCS AND F2F SENT VIA [employer] Original Note: CM MET WITH PT AND MOTHER WITH A [employer]OX [employer]NER OPERATOR TO DISCUSS DC PLANS THEY ARE REQUESTING V[facility] SERVICES, REFERRAL SENT TO [facility] PER PT / FAMILY PREFERENCE HE WILL DC HOME WITH RESUMPTION OF FAMILY CARE [facility] WILL TRANSPORT
[2024-11-27 11:40] VITALS: BP 127/74; PULSE 87; RESP 18; TEMP 36.3; O2SAT 96
--- NOTE | 2024-11-27 12:09 | P.DS_ITS ---
DS: Providers Provider Date of Service: 11/27/24 Date of admission: 11/23/24 16:31 Date of discharge: 11/27/24 Primary care physician: Jessica Dill MD Admitting clinician: Michael Rushing Consults: 11/23/24 17:56 Consult to Hospitalist Routine Comment: Consulting Provider: [facility] [place] Hospitalists Reason For Exam: CP, SBO, med management Attending physician on discharge: Michael Rushing DS: Diagnosis Discharge Diagnosis (1) SBO (small bowel obstruction): Status: Acute DS: Summary Hospital Course Hospital Course: Admission HPI: Dipak Goins is a 49 year old male with a history of cerebral palsy and idiopathic hypotension presenting to the ED with complaints of superficial cellulitis of the groin region and a possible allergic reaction to oxycodone. He also had an episode of nausea and vomiting with some mild abdominal pain mainly in the left upper quadrant. He has been passing flatus but has not had a bowel movement in 2 days. Earlier this year he had a fall resulting in a left hip fracture and subsequently underwent a left hip IMN on 07/20/2024. He is noted to have an elevated WBC of 11.[address] abdomen and pelvis which revealed dilated loops of proximal small bowel with a possible whirl sign to indicate AA partial small-bowel obstruction with decompressed distal small bowel. He is being admitted to the surgical service for further management of this partial small-bowel obstruction Hospital course: The patient is partial SBO was managed conservatively, we did not need NG tube decompression. The patient was on bowel rest and IV hydration. On day 2 of admission, patient was asymptomatic. He was passing gas. His abdominal exam remained soft and benign, he was clinically obstructed. Over the coming days the patient would continue to improve. Leukocytosis improved to baseline. Repeat imaging on 11/26 showed no high-grade small-bowel obstruction and no discrete transition point. His diet was advanced on 11/26. Patient tolerated this well and did not experience recurrence of symptoms. The patient began passing multiple bowel movements, was tolerating regular diet. On the day of discharge his abdominal exam again was soft and benign and he is clinically unobstructed at this time. Status at Discharge Functional status at discharge: bed bound Overall status at discharge: patient is progressing back to baseline Time Attestation Discharge Coordination Time (in mins): 30 Quality: Safe Use of Opioids Does Pt have an Active Cancer Diagnosis on the Problem List?: No Quality: Stroke Does the patient have a stroke diagnosis?: No Physical Exam Vital Signs: Vital Signs: Last Vital Signs Temp 97.3 F 11/27/24 11:40 Pulse 87 11/27/24 11:40 Resp 18 11/27/24 11:40 BP 127/74 11/27/24 11:40 Pulse Ox 96 11/27/24 11:40 O2 Del Method Room Air 11/27/24 11:40 BMI result Body Mass Index 20.3 Const: General: comfortable and no acute distress Orientation/consciousness : patient oriented x3 Resp: Effort & Inspection: normal respiratory effort and able to speak in complete sentences GI: Inspection: No distended Palpation (GI): Soft to palpation, nontender, no guarding and not rigid Percussion: Yes normal to percussion Neuro: General: patient oriented x3 DS: Data Data Completed and Pending Completed studies during hospitalization [Text1]: Procedures Reposition Left Upper Femur with Intramedullary Internal Fixation Device, Open A pproach (08/26/24) Labs on day of discharge: Laboratory Results - last 24 hr 11/27/24 06:00 WBC 6.1 RBC 4.95 Hgb 14.0 Hct 43.1 MCV 87.1 MCH 28.3 MCHC 32.5 RDW 12.2 Plt Count 265 D MPV 10.3 Immature Gran % (Auto) Cancelled Neut % (Auto) Cancelled Lymph % (Auto) Cancelled [place] % (Auto) Cancelled Eos % (Auto) Cancelled Baso % (Auto) Cancelled Lymph # (Auto) Cancelled [place] # (Auto) Cancelled Eos # (Auto) Cancelled Baso # (Auto) Cancelled Abs Immat Gran (auto) Cancelled Absolute Neuts (auto) Cancelled Absolute Nucleated RBC 0.000 Nucleated RBC % (auto) 0.0 Neutrophils % (Manual) 55 Band Neutrophils % 3 Lymphocytes % (Manual) 21 Monocytes % (Manual) 14 H Eosinophils % (Manual) 3 Basophils % (Manual) 1 Metamyelocytes % 2 Myelocytes % 1 Abs Neuts (Manual) 3.5 Lymphocytes # (Manual) 1.3 Monocytes # (Manual) 0.9 Eosinophils # (Manual) 0.2 Basophils # (Manual) 0.1 Metamyelocytes # 0.1 Myelocytes # 0.1 Platelet Estimate NORMAL Plt Morphology Comment NORMAL RBC Morphology NOTED [place] Cells 1+ (0-2) Sodium 136 Potassium 4.0 Chloride 101 Carbon Dioxide 27 Anion Gap 12 BUN 10 Creatinine 0.51 Estim Creat Clear Calc 126.2 Estimated GFR > 60 Fasting Glucose 87 Calcium 8.9 Total Bilirubin 0.5 AST 26 ALT 49 H Alkaline Phosphatase 158 H Total Protein 6.1 L Albumin 3.2 L Preliminary micro results at discharge 11/24/24 10:26 Blood Culture - Preliminary Blood - Venous No growth after 48 hours. 11/24/24 10:26 Blood Culture - Preliminary Blood - Venous No growth after 48 hours. Discharge Plan Discharge Anticipated Discharge Date/Time: 11/27/24 11:08 Patient Disposition: Home Health Service Discharge Diagnosis: Partial small-bowel obstruction Referrals: [facility] [Outside] - 1 Week Michael Rushing MD [Physician] - 1 Week Jessica Holloway MD [Primary Care Provider] - 1 Week Discharge Medications: New valacyclovir 1 gram Tablet 1,000 mg PO Q8H 8 Days Qty: 24 0RF Continued (DME) Semi electric hospital bed with mattress See Rx Instructions .Route .MEDSUPPLY Qty: 1 0RF Rx Instructions: As directed midodrine 2.5 mg tablet 2.5 mg PO TID 30 Days Qty: 90 1RF Rx Instructions: do not give last dose of day after 6PM or within 4 hrs of bedtime sulfamethoxazole-trimethoprim [Bactrim DS] 800-160 mg tablet 1 tab PO BID 10 Days Qty: 20 0RF Discharge Orders: Discharge Order (Routine); Ordered 11/27/24 Ordered By: Michael Rushing Diet: Advance to usual diet Activity on Discharge: As tolerated Stand Alone Forms: Patient Portal Discharge page Print Language: Indonesian Care Plan Goals: Returned to normal diet and activity Health Concerns: Abdominal distention, abdominal pain, nausea and vomiting Plan of Treatment: Bowel rest, IV hydration Assessment: Partial small-bowel obstruction, now resolved
== END 2024-11-27 12:26 | disposition home health service (06) | DRG 390 ==
LOC: HO.ED 16:30 → HO.EDOVER 16:37 → HO.S3 16:45
PROVIDERS: Hospitalist; Nurse Practitioner Family; Physician Assistant Medical; Admitting Provider Surgery; Emergency Provider Emergency Medicine; PCP Internal Medicine; Visit Provider Surgery
DX: K56.600 Partial intestinal obstruction, unspecified as to cause (principal); G80.9 Cerebral palsy, unspecified; I95.0 Idiopathic hypotension; B00.9 Herpesviral infection, unspecified; L27.1 Localized skin eruption due to drugs and medicaments taken internally; T40.2X5A Adverse effect of other opioids, initial encounter; Z96.642 Presence of left artificial hip joint; Z20.822 Contact with and (suspected) exposure to COVID-19; Z79.899 Other long term (current) drug therapy
CPT/HCPCS: 0241U; 36415; 70450; 71046; 72125; 72170; 74177; 74178; 76870; 80048; 80053; 81001; 83735; 83880; 84484; 85007; 85025; 85027; 85652; 86140; 87040; 87086; 93005; 93975; 99285; J1200; J1308; J2919; Q9967

== ENCOUNTER → 2024-11-23 10:08 | Outpatient (BNV) | payer OTHER, SELFPAY | PROVIDERS: Emergency Provider Emergency Medicine; PCP Internal Medicine; Visit Provider Radiology Diagnostic Radiology | DX: J81.0 Acute pulmonary edema (principal); N49.2 Inflammatory disorders of scrotum; R06.02 Shortness of breath | CPT/HCPCS: 71046; 74177; 93975 ==

== ENCOUNTER 2024-11-23 16:31 | Outpatient (BNV) | payer OTHER, SELFPAY | END 2024-11-26 11:04 | PROVIDERS: Admitting Provider Surgery; Emergency Provider Emergency Medicine; PCP Internal Medicine; Visit Provider Radiology Diagnostic Radiology | DX: R63.8 Other symptoms and signs concerning food and fluid intake (principal) | CPT/HCPCS: 74178 ==

== ENCOUNTER 2024-11-23 16:31 | Outpatient (BNV) | payer OTHER, SELFPAY | END 2024-11-23 22:28 | PROVIDERS: Admitting Provider Surgery; Emergency Provider Emergency Medicine; PCP Internal Medicine; Visit Provider Internal Medicine Cardiovascular Disease | DX: I95.9 Hypotension, unspecified (principal); R09.89 Other specified symptoms and signs involving the circulatory and respiratory systems | CPT/HCPCS: 93010 ==

== ENCOUNTER → 2024-11-23 16:31 | Outpatient (BNV) | payer OTHER, SELFPAY | PROVIDERS: Admitting Provider Surgery; Emergency Provider Emergency Medicine; PCP Internal Medicine; Visit Provider Nurse Practitioner Family | DX: K56.609 Unspecified intestinal obstruction, unspecified as to partial versus complete obstruction (principal) | CPT/HCPCS: 99223; 99232 ==

== ENCOUNTER → 2024-11-23 16:31 | Outpatient (BNV) | payer OTHER, SELFPAY | PROVIDERS: Admitting Provider Surgery; Emergency Provider Emergency Medicine; PCP Internal Medicine; Visit Provider Surgery | DX: K56.609 Unspecified intestinal obstruction, unspecified as to partial versus complete obstruction (principal) | CPT/HCPCS: 99222; 99232; G0180 ==

== ENCOUNTER 2024-12-07 10:50 | Outpatient (AMB) | payer OTHER, SELFPAY ==
[2024-12-07 11:05] VITALS: BP 110/72; PULSE 85; RESP 16; TEMP 36.9; O2SAT 99; BMI 18.8
--- NOTE | 2024-12-07 11:05 | MHC.PC.OV ---
Vital Signs 12/07/24 11:05 Height 5 ft 3 in Weight 106 lb BMI 18.8 BP 110/72 Blood Pressure Location Lt brachial Position Sitting Respiration 16 Pulse 85 Pulse Source Pulse Oximeter Temp 98.5 F Temp Source Oral Pulse Oximetry (%) 99 Oxygen Delivery Method Room Air Intake Visit Reasons: [facility] 11/27 partial bowel obstrution Orthotist Required: No Accompanied by: Sister Allergies celecoxib Allergy (Verified 12/28/24 14:37) Hives oxycodone Adverse Reaction (Intermediate, Verified 12/28/24 14:37) Rash Medication List - Last Reconciled 12/07/24 by NATHALIE Redding midodrine 2.5 mg PO TID 30 days [Semi electric hospital bed with mattress As directed] sulfamethoxazole-trimethoprim 800-160 mg (Bactrim DS) 1 tab PO BID 10 days valacyclovir 1,000 mg PO Q8H 8 days Tobacco use date assessed: 12/07/24 Dental Screening Dental Screen Date: 12/07/24 Did you have a dental visit in the last 12 months?: Yes Did you have a dental problem in the last 6 months where you did not have access to dental care?: No Was dental information given to patient?: Patient has dentist HPI [facility] 11/27 partial bowel obstrution HPI Details The patient 49 year old male with a history of cerebral palsy and idiopathic hypotension, hx left hip closed fracture. The patient accompanied by sister, who answer most of the question. [place] [facility] [place]bow[place] obstruction. CT of the abdomen and pelvis which revealed dilated loops of proximal small bowel with possible whirl sign to indicate AA partial small bowel obstruction with decompressed distal small bowel. The patient is partial SBO was managed conservatively, we did not need NG tube decompression. The patient was on bowel rest and IV hydration. On day 2 of admission, patient was asymptomatic. He was passing gas. His abdominal exam remained soft and benign, he was clinically obstructed. Over the coming days the patient would continue to improve. Leukocytosis improved to baseline. Repeat imaging on 11/26 showed no high-grade small-bowel obstruction and no discrete transition point. His diet was advanced on 11/26. Patient tolerated this well and did not experience recurrence of symptoms. The patient began passing multiple bowel movements, was tolerating regular diet. On the day of discharge his abdominal exam again was soft and benign and he is clinically unobstructed at this time. The patient was recently hospitalized for a partial small bowel obstruction, which was managed with nasogastric decompression and gradual reintroduction of oral intake. He has been recovering well post-discharge, with no significant complications reported. The patient reports episodes of urinary incontinence, characterized by a delay in the sensation of needing to urinate followed by involuntary urination. This issue has been noted since his recent hospitalization, and there is no associated dysuria or urinary tract infection symptoms. Liver function tests have shown elevated enzyme levels, which have been a persistent finding, though they have decreased slightly over time. The cause of the elevated liver enzymes remains unclear, and further evaluation is planned. [facility] TCM Information Date of Discharge 11/27/24 Discharged From [facility] Interactive Contact Date (Reference documentation from this date) 11/29/24 [facility] Medical History (Updated 12/31/24 @ 13:38 by NATHALIE Redding) SBO (small bowel obstruction) Idiopathic hypotension Transaminitis Underweight Closed fracture of left hip Cerebral palsy Family history of diabetes mellitus Surgical History History of left hip replacement Recent surgical procedure on lower extremity Family History Father Diabetes Hypertension Mother Hypertension Diabetes Social History Household Members: Family Housing: House Do you presently have visiting nurse or other home services: Yes Alcohol intake: never Patient Tobacco Use Status: Never used Tobacco e-Cigarette/Vaping Use: Never Used Second Hand Smoke Exposure: No service: No Current occupational status: disabled Cognitive needs: Yes Hearing needs: No Vision needs: No Questionnaire PHQ-9 Over the last 2 weeks, how often have you been bothered by any of the following problems? 1. Little interest or pleasure in doing things: not at all 2. Feeling down, depressed, or hopeless: not at all 3. Trouble falling or staying asleep, or sleeping too much: not at all 4. Feeling tired or having little energy: not at all 5. Poor appetite or overeating: not at all 6. Feeling bad about yourself - or that you are a failure or have let yourself or your family down: not at all 7. Trouble concentrating on things, such as reading the newspaper or watching television: not at all 8. Moving or speaking so slowly that other people could have noticed. Or the opposite - being so fidgety or restless that you have been moving around a lot more than usual: not at all 9. Thoughts that you would be better off or of hurting yourself in some way: not at all Total score: 0 Depression Screening Interpretation: Negative Depression Screening Done: Yes Source: Developed by Drs. Loc Mcmahon, More Rayo, Sree Andrews and colleagues, with an educational priya from [employer]. Thrive Questionnaire Date Thrive assessed: 12/07/24 I am a: Patient What is your living situation today?: I have a steady place to live Within the past 12 months, did the food you bought not last and you didn't have the money to get more?: I choose not to answer this question Within the past 12 months, did you worry whether your food would run out before you got money to buy more?: I choose not to answer this question Do you have trouble paying for medicines?: No Do you have trouble getting transportation to medical appointments?: No Do you have trouble paying your heating and electricity bill?: No Do you have trouble taking care of your child, family member or friend?: I choose not to answer this question Do you have trouble with day-to-day activities such as bathing, preparing meals, shopping, managing finances, etc.?: No Are you currently unemployed and looking for a job?: I choose not to answer this question Are you interested in more education?: I choose not to answer this question Please select the resources that you would like help with: None Currently or been in a relationship where the following occur: I choose not to answer THRIVE Score: 0 AUDIT C Alcohol Use Questionnaire (AUDIT-C) 1. How often do you have a drink containing alcohol?: Never 3. How often do you have six or more drinks on one occasion?: Never Total Score: 0 Score Reviewed/Action Taken: No DIANA-7 AMB Questionnaire DIANA-7 Date DIANA - 7 assessed: 12/07/24 Feeling nervous, anxious, or on edge: 0 = Not at all Not being able to stop or control worryin = Not at all Worrying too much about different things: 0 = Not at all Trouble relaxin = Not at all Being so restless that it is hard to sit still: 0 = Not at all Becoming easily annoyed or irritable: 0 = Not at all Feeling afraid as if something awful might happen: 0 = Not at all Total DIANA-7 score (0-4 normal; 5-9 mild; 10-14 moderate; 15-21 severe): 0 Source: Developed by Drs. Loc Mcmahon, More Rayo, Sree Andrews and colleagues, with an educational priya from [employer]. Review of Systems Const Denies body aches, Denies chills, Denies fever(s), Denies headache(s) and Denies poor appetite Eyes Reports no additional complaints ENT Denies dysphagia, Denies dizziness, Denies headache(s) and Denies odynophagia Card Denies chest pain, Denies syncope, Denies edema, Denies irregular heart rhythm, Denies lightheadedness and Denies dyspnea Resp Denies cough and Denies dyspnea GI Denies abdominal pain, Denies constipation, Denies dysphagia, Denies diarrhea, Denies nausea, Denies odynophagia and Denies vomiting Reports urinary incontinence (decreased sensation of urgency) Musc Reports abnormal gait (s/p left hip surgery, walker with one assist) and Reports arthralgias (left hip s/p surgery) Skin/Breast Reports system reviewed and no additional complaints, except as documented Neuro Reports abnormal gait (s/p left hip surgery, walker with one assist), Denies dizziness, Denies syncope and Denies headache(s) Psych Reports no additional complaints Physical exam (Primary Care) Vital Signs: Last Vital Signs Temp 98.5 F 12/07/24 11:05 Pulse 85 12/07/24 11:05 Resp 16 12/07/24 11:05 BP 110/72 12/07/24 11:05 Pulse Ox 99 12/07/24 11:05 Oxygen Delivery Method Room Air 12/07/24 11:05 BMI result Body Mass Index 18.8 Tobacco/Smoking Status: Tobacco use Status Tobacco use date assessed 12/07/24 12/07/24 11:08 Patient Tobacco Use Status Never used Tobacco 12/07/24 11:08 e-Cigarette/Vaping Use Never Used 12/07/24 11:08 PHQ-9: PHQ-9 Score PHQ-9: Total score 0 12/07/24 11:34 Depression Screening Interpretation: Negative Thrive Assessment: Date of Thrive Assessment Date Thrive assessed 12/07/24 12/07/24 11:08 Currently or been in a relationship where the following occur: I choose not to answer Const General: cooperative, healthy appearing, comfortable and no acute distress Orientation/consciousness: patient oriented x3 Limitations: physical limitations and ambulation with walker HENMT Head: Yes normocephalic Ears: hearing grossly normal bilaterally General nose exam: Normal external nose present Eyes General: appearance normal, both eyes and all related structures Conjunctivae: conjunctivae normal Neck Neck: Yes full ROM and Yes no lymphadenopathy Resp Effort & Inspection: normal respiratory effort Auscultation: clear to auscultation bilaterally, no crackles, no rales, no rhonchi and no wheezes Cardio Rate: regular rate Rhythm: regular rhythm Heart sounds: S1 normal heart sound present, S2 normal heart sound present, no gallops and no murmurs GI Palpation (GI): Soft to palpation and nontender Auscultation: normal bowel sounds General: Yes no CVA tenderness Back/Spine/Pelvis Back: no CVA tenderness Skin General skin exam: no rashes or lesions noted Neuro General: patient oriented x3 Gait exam (Neuro): Assisted gait required Gait assisted method: walker Extrem General: Yes normal to inspection, Yes full ROM and No edema Left lower extremity: hip/thigh (s/p hip surgery) Psych Affect: normal affect Attitude: cooperative Insight: Good insight present (Psych) Judgement: Good judgement present (Psych) Coding Level of Care Code TCM Mod MDM <= 14 Days Diagnoses SBO (small bowel obstruction) K56.609 Closed fracture of left hip with routine healing, subsequent encounter S72.002D Encounter type: subsequent encounter Fracture healing: with routine healing Transaminitis R74.01 Urge incontinence of urine N39.41 Urinary Incontinence type: urge incontinence Time Spent (min) 37 Assessment & Plan Assessment & Plan (1) SBO (small bowel obstruction): Code(s): K56.609 - Unspecified intestinal obstruction, unspecified as to partial versus complete obstruction Category: Medical (2) Closed fracture of left hip: Code(s): S72.002A - Fracture of unspecified part of neck of left femur, initial encounter for closed fracture Category: Medical Qualifiers: Encounter type: subsequent encounter Fracture healing: with routine healing Qualified Code(s): S72.002D - Fracture of unspecified part of neck of left femur, subsequent encounter for closed fracture with routine healing (3) Transaminitis: Code(s): R74.01 - Elevation of levels of liver transaminase levels Category: Medical (4) Urinary incontinence: Code(s): R32 - Unspecified urinary incontinence Category: Medical Qualifiers: Urinary Incontinence type: urge incontinence Qualified Code(s): N39.41 - Urge incontinence Plan The patient will continue to be monitored for any signs of recurrent bowel obstruction, with instructions to seek immediate care if symptoms such as abdominal distension or discomfort occur. Further evaluation of urinary incontinence will be considered, with the possibility of using protective garments if the issue persists. The reports decreasing sensation of urgency to use the bathroom. Discussed with the patient that this probably due to the stretching of the bladder muscles during her bowel obstruction and will probably get better with time. If issue persist, the patient could be referred for bladder floor therapy, along with being referred to urology for further testing. Liver function will be reassessed with follow-up tests, including an abdominal ultrasound and liver panel, to determine the cause of the elevated enzymes. The patient is advised to maintain the scheduled appointment with Dr. Higgins for continued evaluation and management. Patient was informed and verbally consented to the use of an ambient scribe for clinic note documentation during this visit.
== END 2024-12-07 12:42 | disposition home or self-care (01) ==
LOC: HO.HMCH 10:51
PROVIDERS: PCP Internal Medicine
DX: K56.609 Unspecified intestinal obstruction, unspecified as to partial versus complete obstruction (principal); S72.002D Fracture of unspecified part of neck of left femur, subsequent encounter for closed fracture with routine healing; R74.01 Elevation of levels of liver transaminase levels; N39.41 Urge incontinence

== ENCOUNTER → 2024-12-07 10:50 | Outpatient (BNVA) | payer OTHER, SELFPAY | PROVIDERS: PCP Internal Medicine | DX: S72.002D Fracture of unspecified part of neck of left femur, subsequent encounter for closed fracture with routine healing (principal); G80.9 Cerebral palsy, unspecified; R74.01 Elevation of levels of liver transaminase levels; N39.41 Urge incontinence; Z87.19 Personal history of other diseases of the digestive system; X58.XXXD Exposure to other specified factors, subsequent encounter | CPT/HCPCS: 96127; 99495 ==

== ENCOUNTER 2024-12-28 14:17 | Outpatient (AMB) | payer OTHER, SELFPAY ==
--- NOTE | 2024-12-28 14:30 | A.OFFVIS_ITS ---
Vital Signs 12/28/24 14:38 Height 5 ft 3 in Weight 110 lb BMI 19.5 BP 139/74 Blood Pressure Location Lt brachial Position Sitting Pulse 87 Intake Visit Reasons: SBO Intake Note: Patient is seen in office for ER follow up visit, following small bowel obstruction. Pt c/o: was seen in the ED due to lost of balance while in the shower, and was told he had a SBO, was given meds, states currently is feeling well, normal bowel moments ER:11/27/24 [employer] Keyboard Operator Required: No Accompanied by: Sister Allergies celecoxib Allergy (Verified 12/28/24 14:37) Hives oxycodone Adverse Reaction (Intermediate, Verified 12/28/24 14:37) Rash Medication List - Last Reconciled 12/28/24 by Michael Rushing MD midodrine 2.5 mg PO TID 30 days [Semi electric hospital bed with mattress As directed] sulfamethoxazole-trimethoprim 800-160 mg (Bactrim DS) 1 tab PO BID 10 days valacyclovir 1,000 mg PO Q8H 8 days HPI Comments Details: 49-year-old male patient returning following a recent hospitalization for partial small-bowel obstruction from 11/23/2024 to 11/27/2024. This resolved non operatively and he was subsequently started on his usual diet. He returns today for a post hospitalization visit. Since his discharge from the hospital he feels no abdominal pain, nausea or vomiting. He is eating well in his bowels are regular. He has no new abdominal complaints. [facility] Medical History SBO (small bowel obstruction) Idiopathic hypotension Transaminitis Underweight Closed fracture of left hip Cerebral palsy Family history of diabetes mellitus Surgical History History of left hip replacement Recent surgical procedure on lower extremity Family History Father Diabetes Hypertension Mother Hypertension Diabetes Social History Household Members: Family Housing: House Do you presently have visiting nurse or other home services: Yes Alcohol intake: never Patient Tobacco Use Status: Never used Tobacco e-Cigarette/Vaping Use: Never Used Second Hand Smoke Exposure: No service: No Current occupational status: disabled Cognitive needs: Yes Hearing needs: No Vision needs: No Review of Systems Const Unobtainable due to mental condition Physical Exam Vital Signs: Last Vital Signs Temp 97.3 F 11/27/24 11:40 Pulse 87 11/27/24 11:40 Resp 18 11/27/24 11:40 BP 127/74 11/27/24 11:40 Pulse Ox 96 11/27/24 11:40 O2 Del Method Room Air 11/27/24 11:40 BMI result Body Mass Index 20.3 Const General: comfortable and no acute distress Nutritional Appearance: thin Resp Effort & Inspection: normal respiratory effort and able to speak in complete sentences GI Inspection: No distended Palpation (GI): Soft to palpation, nontender, no guarding and not rigid Percussion: Yes normal to percussion Assessment & Plan Assessment & Plan (1) SBO (small bowel obstruction): Code(s): K56.609 - Unspecified intestinal obstruction, unspecified as to partial versus complete obstruction Category: Medical Plan 49-year-old male patient previously admitted for a partial small-bowel obstruction returning today for post hospitalization visit. His abdomen is soft and nondistended, non tympanitic to percussion. There is no evidence of ongoing obstruction at this time. He should follow up as needed. Coding Level of Care Code Est Pt Level 3 (41680) Diagnoses SBO (small bowel obstruction) K56.609
[2024-12-28 14:38] VITALS: BP 139/74; PULSE 87; BMI 19.5
== END 2024-12-28 14:41 | disposition home or self-care (01) ==
LOC: HO.HGS 14:18
PROVIDERS: PCP Internal Medicine; Visit Provider Surgery
DX: K56.609 Unspecified intestinal obstruction, unspecified as to partial versus complete obstruction (principal)
CPT/HCPCS: 99213

== ENCOUNTER → 2024-12-28 14:17 | Outpatient (BNVA) | payer OTHER, SELFPAY | PROVIDERS: PCP Internal Medicine; Visit Provider Surgery | DX: K56.609 Unspecified intestinal obstruction, unspecified as to partial versus complete obstruction (principal) | CPT/HCPCS: 99212 ==

== ENCOUNTER 2025-01-19 08:17 | Outpatient (REF) | payer OTHER, SELFPAY ==
--- NOTE | ~2025-01-19 | US_ITS ---
EXAMINATION: US ABDOMEN LIMITED WITH LIVER ELASTOGRAPHY CLINICAL INFORMATION: Elevated liver transaminases COMPARISON: None. Correlation made with CT abdomen and pelvis 11/26/2024. TECHNIQUE: Real-time imaging of the abdominal viscera. Noninvasive ultrasound liver fibrosis assessment is performed using Kiana ElastPQ point quantification shear wave elastography (2D-SWE) with a C5-2 MHz transducer. Multiple elastography samples are obtained. FINDINGS: PANCREAS: The visualized pancreatic head and body are normal in appearance. The remainder of the pancreas is obscured from visualization by the overlying bowel gas. LIVER: The liver demonstrates normal size, contour and echogenicity. No focal lesion or intrahepatic biliary duct dilatation. The right lobe measures 14.2 cm in length. The left lobe measures 7.4 cm in length. Portal flow is towards the liver (hepatopetal). Shear wave liver elastography median stiffness is 1.34 m/s (reference: normal median stiffness is 1.3 m/s or less). IQR/median stiffness to assess sampling precision is 0.10 (reference: good quality data set is IQR/median stiffness of 0.15 or less). GALLBLADDER: The gallbladder is physiologically distended without evidence of stones, sludge, polyps, wall thickening or pericholecystic fluid. COMMON BILE DUCT: Normal in caliber measuring 0.4 cm in diameter. RIGHT KIDNEY: No hydronephrosis. No renal calculi or suspicious focal parenchymal lesions. The kidney measures 10.0 cm in maximum dimension. There is a mid pole cyst with peripheral calcifications measuring 1.1 x 0.6 x 0.9 cm, consistent with a Bosniak 2 cyst. FREE FLUID: None. US/US abdomen burns w elastography IMPRESSION: 1. Normal-appearing liver, gallbladder, and bile ducts. 2. Liver elastography: In the absence of other known clinical signs, measurements rule out compensated advanced chronic liver disease. If there are known clinical signs, further testing may be needed for confirmation. 3. Benign right renal cyst measuring 1.1 cm. REFERENCE: Society of Radiologists in Ultrasound Liver Stiffness Thresholds (2019): LIVER STIFFNESS THRESHOLDS: *Liver Stiffness equal or less than 1.3 m/s: High probability of being normal. *Liver Stiffness less than 1.7 m/s: In the absence of other known clinical signs, rules out compensated advanced chronic liver disease. *Liver Stiffness 1.7-2.1 m/s: Suggestive of compensated advanced chronic liver disease but need further test for confirmation. *Liver Stiffness over 2.1 m/s: Rules in compensated advanced chronic liver disease. *Liver Stiffness over 2.4 m/s: Suggestive of clinically significant portal hypertension. QUALITY OF DATA SET: *IQR/Median value equal or less than 0.15 implies a quality data set. *IQR/Median value over 0.15 implies a poor quality data set. SIGNIFICANT CHANGE FROM PRIOR EXAM: Significant change if liver stiffness measurement is 10% or greater from prior exam. OTHER CONSIDERATIONS: The stage of liver fibrosis may be overestimated in the setting of acute hepatitis, liver inflammation, elevated liver function tests, hepatic vascular congestion, obstructive cholestasis, non-fasting state, and infiltrative diseases such as amyloidosis and lymphoma. In some patients with NAFLD, the liver stiffness thresholds for compensated advanced chronic liver disease may be lower. In causes other than viral hepatitis and NAFLD, liver stiffness thresholds are not well established. Electronically signed by: Denny Siddiqui MD 01/19/2025 08:54 AM EDT
== END 2025-01-19 08:18 | disposition home or self-care (01) ==
LOC: HO.US 08:17
PROVIDERS: PCP Internal Medicine; Visit Provider Internal Medicine
DX: R74.01 Elevation of levels of liver transaminase levels (principal)
CPT/HCPCS: 76705; 76981

== ENCOUNTER → 2025-01-19 08:19 | Outpatient (BNV) | payer OTHER, SELFPAY | PROVIDERS: PCP Internal Medicine; Visit Provider Radiology Diagnostic Radiology | DX: N28.1 Cyst of kidney, acquired (principal) | CPT/HCPCS: 76705 ==

== ENCOUNTER 2025-04-11 10:27 | Outpatient (AMB) | payer OTHER, SELFPAY ==
--- NOTE | 2025-04-11 10:29 | A.OFFVIS_ITS ---
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/ Idiopathic hypotension Intake Note: New patient idiopathic hypotension with ekg had a fall in August found to having low bp then in November came to ED overheated with low bp patient is nonverbal sister is with him today they are using the midodrine about once a week Splunk Developer Required: No Surgery Specialist: Surgery Specialist Present Accompanied by: Sister Allergies celecoxib Allergy (Verified 12/28/24 14:37) Hives oxycodone Adverse Reaction (Intermediate, Verified 12/28/24 14:37) Rash Medication List - Last Reconciled 04/11/25 by Rishabh Maxwell MD midodrine 2.5 mg PO TID PRN [[facility] electric [facility] bed with mattress As directed] HPI Comments Details: Dipak was referred here because prior history of low blood pressure. Patient presents here with his sister who acts as clinical research assistant and is also helping with history. Patient in August had a fall and subsequently had hip fracture repair. Subsequently few months later he came to the emergency room during very hot weather and low blood pressure. Patient is a limited historian. He has prior history of cerebral palsy and now had become limited functionality. As per the sister he does still try to get around with the help of a walker. After the last episode he has been prescribed midodrine for maintaining his blood pressure. Has not had to take a lot of midodrine. Patient's sister says that now measuring the blood pressure is a blood pressure mostly in the 120 range. She only gives midodrine in his blood pressure is below 100. Patient denies any current symptoms of orthostatic lightheadedness. Does drink enough water. No other cardiovascular symptoms. Referred here for management of low blood pressure issues. [facility] Medical History SBO (small bowel obstruction) Idiopathic hypotension Transaminitis Underweight Closed fracture of left hip Cerebral palsy Family history of diabetes mellitus Surgical History History of left hip replacement Recent surgical procedure on lower extremity Family History Father Diabetes Hypertension Mother Hypertension Diabetes Social History Household Members: Family Housing: House Do you presently have visiting nurse or other home services: Yes Alcohol intake: never Patient Tobacco Use Status: Never used Tobacco e-Cigarette/Vaping Use: Never Used Second Hand Smoke Exposure: No service: No Current occupational status: disabled Cognitive needs: Yes Hearing needs: No Vision needs: No Review of Systems Const Denies chills, Denies daytime sleepiness, Denies fatigue, Denies fever(s), Denies frequent falls, Denies poor appetite, Denies snoring, Denies stops breathing during sleep, Denies weakness, Denies weight gain and Denies weight loss Eyes Denies loss of vision ENT Denies dizziness and Denies hearing loss Card Denies chest pain, Denies claudication, Denies leg edema, Denies lightheadedness, Denies palpitations, Denies dyspnea, Denies dyspnea on exertion and Denies orthopnea Resp Denies cough, Denies excessive phlegm production, Denies dyspnea, Denies dyspnea on exertion, Denies snoring and Denies wheezing GI Denies abdominal pain, Denies hematochezia, Denies change in bowel habits, Denies nausea and Denies vomiting Denies dysuria and Denies urinary frequency Musc Denies arthralgias, Denies muscle weakness and Denies numbness Skin/Breast Denies nail changes and Denies rash Neuro Denies Abnormal speech present, Denies dizziness, Denies frequent falls, Denies loss of vision, Denies memory loss, Denies numbness and Denies weakness Psych Denies depression and Denies memory loss Endo Denies fatigue and Denies palpitations Kasi/Lymph Reports easy bruising and Reports other (anemia) Aller/Immun Denies wheezing Physical Exam Vital Signs: Last Vital Signs Pulse 82 04/11/25 10:30 BP 120/76 04/11/25 10:30 BMI result Body Mass Index 19.1 Const General: cooperative, comfortable, alert and awake Nutritional Appearance: thin Limitations: wheelchair HEENT Head: Yes normocephalic, Yes atraumatic and Yes other (Microcephaly) Neck Neck: Yes trachea midline, Yes supple and Yes no JVD Resp Effort & Inspection: normal respiratory effort Auscultation: clear to auscultation bilaterally Cardio Jugular venous distension: no JVD Rate: regular rate Rhythm: regular rhythm Heart sounds: S1 normal heart sound present, S2 normal heart sound present, no click, no gallops, no murmurs and no rubs GI Auscultation: normal bowel sounds Neuro Speech: No Abnormal speech present Office Procedures EKG Details: EKGs shows normal sinus rhythm with normal EKGs [id number], Complete Assessment & Plan Assessment & Plan (1) Low blood pressure: Code(s): I95.9 - Hypotension, unspecified Category: Medical Plan: Low blood pressure with possible orthostatic component in this middle-aged man with prior history of cerebral palsy with limited functionality at this point time. It is possible his event of fall leading to hip fracture could be related to orthostatic hypotension although this is unclear. He also since then had another episode of low blood pressure. Currently on midodrine PRN which is appropriate therapy. Sister is well aware of using midodrine therapy as needed. However also discussed other management options including increase fluid and salt intake for him. Orthostatic precautions were discussed in details. They understand and agree. No other cardiac workup is indicated at this point time. Will follow up in the clinic if need be. Thank you for allowing me to partake in his care Medications: Changed From midodrine do not give last dose of day after 6PM or within 4 hrs of bedtime 2.5 mg PO TID 30 days 90 tabs 1RF I95.0 - Idiopathic hypotension To midodrine do not give last dose of day after 6PM or within 4 hrs of bedtime 2.5 mg PO TID PRN I95.0 - Idiopathic hypotension Coding Level of Care Code New Pt Level 4 (93504) Complex EM visit Add On G2211 Diagnoses Low blood pressure I95.9 CPT Codes EKG - CPT: 13413-[id number], Complete ([id number])
[2025-04-11 10:30] VITALS: BP 120/76; PULSE 82; BMI 19.1
== END 2025-04-11 10:53 | disposition home or self-care (01) ==
LOC: HO.HCS 10:27
PROVIDERS: PCP Internal Medicine; Visit Provider Internal Medicine Cardiovascular Disease
DX: I95.9 Hypotension, unspecified (principal)
CPT/HCPCS: 93010; 99214; G2211

== ENCOUNTER → 2025-04-11 10:27 | Outpatient (BNVA) | payer OTHER, SELFPAY | PROVIDERS: PCP Internal Medicine; Visit Provider Internal Medicine Cardiovascular Disease | DX: I95.9 Hypotension, unspecified (principal) | CPT/HCPCS: 93005; 99212 ==

== ENCOUNTER 2025-04-26 08:29 | Outpatient (AMB) | payer OTHER, SELFPAY ==
[2025-04-26 08:38] VITALS: BP 130/84; PULSE 91; TEMP 36.3; O2SAT 98
--- NOTE | 2025-04-26 08:38 | A.OFFPC_ITS ---
Vital Signs 04/26/25 08:38 Height 5 ft 3 in BMI Reason not done Patient refused/unable BP 130/84 Blood Pressure Location Lt brachial Position Sitting Pulse 91 Pulse Source Pulse Oximeter Temp 97.3 F Temp Source Temporal Artery Scan Pulse Oximetry (%) 98 Oxygen Delivery Method Room Air Intake Visit Reasons: Annual Exam [facility] Required: No Accompanied by: Sister Allergies celecoxib Allergy (Verified 04/26/25 08:54) Hives oxycodone Adverse Reaction (Intermediate, Verified 04/26/25 08:54) Rash Medication List - Last Reconciled 04/26/25 by Jessica Dill MD midodrine 2.5 mg PO TID PRN [[facility] electric hospital bed with mattress As directed] Tobacco use date assessed: 04/26/25 Dental Screening Dental Screen Date: 04/26/25 Did you have a dental visit in the last 12 months?: No Did you have a dental problem in the last 6 months where you did not have access to dental care?: No Was dental information given to patient?: No HPI HPI Comments History of Present Illness Details The patient is a 50-year-old male presenting for an annual physical examination. He has a history of cerebral palsy and uses a wheelchair. Past medical history is significant for idiopathic hypotension, treated with midodrine three times daily, with a recent blood pressure of 138/x mmHg. He also has a history of a small bowel obstruction which resolved without surgical intervention. Surgical history includes a left hip replacement in August of this year and previous surgeries on his legs. Recent laboratory results showed a slightly elevated liver enzyme and low protein. A liver ultrasound performed for the elevated enzymes revealed a 1.1 cm benign lesion. In terms of health maintenance, his Cologuard was performed in 2022 and is next due in 2025, and his tetanus vaccination is up to date. - The patient completed a Cologuard test in 2022 and is due for the next screening in 2025. - Tetanus vaccination is up to date. - Lab work to check cholesterol levels w ill be ordered. - A follow-up liver ultrasound is planne d for next year to monitor the 1.1 cm benign lesion. [facility] Medical History SBO (small bowel obstruction) Idiopathic hypotension Transaminitis Underweight Closed fracture of left hip Cerebral palsy Family history of diabetes mellitus Surgical History History of left hip replacement Recent surgical procedure on lower extremity Family History Father Diabetes Hypertension Mother Hypertension Diabetes Social History Household Members: Family Housing: House Do you presently have visiting nurse or other home services: Yes Alcohol intake: never Patient Tobacco Use Status: Never used Tobacco e-Cigarette/Vaping Use: Never Used Second Hand Smoke Exposure: No service: No Current occupational status: disabled Cognitive needs: Yes Hearing needs: No Vision needs: No Questionnaire PHQ-9 Over the last 2 weeks, how often have you been bothered by any of the following problems? 1. Little interest or pleasure in doing things: not at all 2. Feeling down, depressed, or hopeless: not at all 3. Trouble falling or staying asleep, or sleeping too much: not at all 4. Feeling tired or having little energy: not at all 5. Poor appetite or overeating: not at all 6. Feeling bad about yourself - or that you are a failure or have let yourself or your family down: not at all 7. Trouble concentrating on things, such as reading the newspaper or watching television: not at all 8. Moving or speaking so slowly that other people could have noticed. Or the opposite - being so fidgety or restless that you have been moving around a lot more than usual: not at all 9. Thoughts that you would be better off or of hurting yourself in some way: not at all Total score: 0 Depression Screening Interpretation: Negative Depression Screening Done: Yes 64823 - PHQ-9 Billing: Yes Source: Developed by Drs. Loc Mcmahon, More Rayo, Sree Andrews and colleagues, with an educational priya from [employer]. Thrive Questionnaire Date Thrive assessed: 11/14/24 I am a: Patient What is your living situation today?: I have a steady place to live Within the past 12 months, did the food you bought not last and you didn't have the money to get more?: I choose not to answer this question Within the past 12 months, did you worry whether your food would run out before you got money to buy more?: I choose not to answer this question Do you have trouble paying for medicines?: No Do you have trouble getting transportation to medical appointments?: No Do you have trouble paying your heating and electricity bill?: No Do you have trouble taking care of your child, family member or friend?: I choose not to answer this question Do you have trouble with day-to-day activities such as bathing, preparing meals, shopping, managing finances, etc.?: No Are you currently unemployed and looking for a job?: I choose not to answer this question Are you interested in more education?: I choose not to answer this question Please select the resources that you would like help with: None Currently or been in a relationship where the following occur: I choose not to answer THRIVE Score: 0 AUDIT C Alcohol Use Questionnaire (AUDIT-C) 1. How often do you have a drink containing alcohol?: Never 3. How often do you have six or more drinks on one occasion?: Never Total Score: 0 Score Reviewed/Action Taken: No DIANA-7 AMB Questionnaire DIANA-7 Date DIANA - 7 assessed: 12/07/24 Feeling nervous, anxious, or on edge: 0 = Not at all Not being able to stop or control worryin = Not at all Worrying too much about different things: 0 = Not at all Trouble relaxin = Not at all Being so restless that it is hard to sit still: 0 = Not at all Becoming easily annoyed or irritable: 0 = Not at all Feeling afraid as if something awful might happen: 0 = Not at all Total DIANA-7 score (0-4 normal; 5-9 mild; 10-14 moderate; 15-21 severe): 0 Source: Developed by Drs. Loc Mcmahon, More Rayo, Sree Andrews and colleagues, with an educational priya from [employer]. DIANA-7 Assessment Billing DIANA-7 Assessment Tool: DIANA-7 Assessment 85808 Review of Systems Const All systems reviewed & are unremarkable except as noted in HPI and below Card Denies chest pain at rest, Denies chest pain with activity, Denies edema, Denies irregular heart rhythm, Denies claudication, Denies dyspnea, Denies dyspnea on exertion, Denies orthopnea, Denies paroxysmal nocturnal dyspnea and Denies slow heart rate Resp Denies cough, Denies dyspnea and Denies dyspnea on exertion GI Denies abdominal pain, Denies change in bowel habits, Denies excessive flatus, Denies nausea and Denies vomiting Denies urinary hesitancy, Denies urinary incontinence and Denies urinary urgency Musc Denies atrophy, Denies deformity and Denies limited range of motion Physical exam (Primary Care) Vital Signs: Last Vital Signs Temp 97.3 F 04/26/25 08:38 Pulse 91 04/26/25 08:38 BP 130/84 04/26/25 08:38 Pulse Ox 98 04/26/25 08:38 Oxygen Delivery Method Room Air 04/26/25 08:38 Tobacco/Smoking Status: Tobacco use Status Tobacco use date assessed 04/26/25 04/26/25 08:42 Patient Tobacco Use Status Never used Tobacco 04/26/25 08:42 e-Cigarette/Vaping Use Never Used 04/26/25 08:42 PHQ-9: PHQ-9 Score PHQ-9: Total score 0 04/26/25 08:55 Depression Screening Interpretation: Negative Thrive Assessment: Date of Thrive Assessment Date Thrive assessed 11/14/24 04/26/25 08:42 Currently or been in a relationship where the following occur: I choose not to answer Const Limitations: wheelchair HENMT Head: Yes normal to inspection, Yes normocephalic and Yes atraumatic Ears: external ears normal Eyes General: appearance normal, both eyes and all related structures Eyelids: Yes eyelids normal Conjunctivae: conjunctivae normal Neck Neck: Yes normal visual inspection and Yes supple Resp Effort & Inspection: normal respiratory effort Auscultation: clear to auscultation bilaterally Cardio Jugular venous distension: no JVD Rate: regular rate Rhythm: regular rhythm Heart sounds: S1 normal heart sound present and S2 normal heart sound present GI Inspection: Yes normal to inspection Palpation (GI): Soft to palpation and nontender Auscultation: normal bowel sounds Skin General skin exam: no rashes or lesions noted Neuro General: no focal motor deficits Extrem General: Yes full ROM Psych Appearance: grossly normal Coding Level of Care Code Est Pt Prev Care 40-64y(62236) Diagnoses Encounter for physical examination 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 Encounter for general adult medical examination without abnormal findings Z00.00 The patient is undergoing his annual physical exam. As part of the workup, cholesterol levels will be checked via lab work as it was missed previously. Orders: Orders Lipid Panel Today E78.5 - Hyperlipidemia, unspecified US renal BI 1 Year N28.1 - Cyst of kidney, acquired
== END 2025-04-26 09:12 | disposition home or self-care (01) ==
LOC: HO.HMCH 08:30
PROVIDERS: PCP Internal Medicine; Visit Provider Internal Medicine
DX: Z00.00 Encounter for general adult medical examination without abnormal findings (principal); G80.1 Spastic diplegic cerebral palsy

== ENCOUNTER → 2025-04-26 08:29 | Outpatient (BNVA) | payer OTHER, SELFPAY | PROVIDERS: PCP Internal Medicine; Visit Provider Internal Medicine | DX: Z00.00 Encounter for general adult medical examination without abnormal findings (principal); I10 Essential (primary) hypertension; R74.8 Abnormal levels of other serum enzymes; G80.1 Spastic diplegic cerebral palsy; N28.1 Cyst of kidney, acquired; E78.5 Hyperlipidemia, unspecified; Z96.642 Presence of left artificial hip joint; Z79.899 Other long term (current) drug therapy | CPT/HCPCS: 96127; 99396 ==